=== PATIENT | female | born 1970 | race American Indian/Alaskan Native ===

== ENCOUNTER 2016-07-16 11:37 | Day surgery (SDC) | payer MEDICARE ==
[~2016-07-16 11:37] MED LIST: ANCEF/STERILE WATER 2 GM/20 ML 2 GM/20 ML SYRINGE IV NR; NACL 0.9% 1000 ML 1,000 ML IV SCH
[2016-07-16] MEDS ORDERED: HEPARIN/NS 5000 UNIT/500ML(CATH LAB) 1,000 ML IR ONE (13:41)
[2016-07-16] MEDS ORDERED: HEPARIN 10,000 UNITS/10 ML ONE (13:41)
[2016-07-16] MEDS ORDERED: NACL 0.9% 250ML 250 ML ONE (13:43)
[2016-07-16] MEDS ORDERED: ANCEF/STERILE WATER 2 GM/20 ML 2 GM/20 ML SYRINGE IV ONE (13:43)
[2016-07-16] MEDS: SUBLIMAZE ONE ×2 (14:15→14:21)
[2016-07-16] MEDS: XYLOCAINE 2% INFILTRATI ONE ×2 (14:15→14:24)
[2016-07-16] MEDS: VERSED ONE ×2 (14:15→14:21)
--- NOTE | 2016-07-16 14:56 | Short Stay Summary ---
Short Stay Documentation Date of service: 07/16/16 - History Principal diagnosis: Thrombosed AV graft Past Medical History: dialysis, ESRD Past Surgical History: Other (RUE Hero graft) Social history: no significant social history - Allergies and Medications Current Medications: Allergies fluconazole [From Diflucan] Allergy (Verified 11/28/15 16:57) Swelling Home Medications Medication Instructions Recorded Confirmed Last Taken Type Carvedilol [Coreg] 12.5 mg PO BID 05/26/15 07/16/16 07/15/16 History Cholecalciferol Vit D3 [Vitamin D3] 1,000 unit PO QDAY 05/26/15 07/16/16 History Insulin Detemir [Levemir VIAL] 30 unit SQ QHS 05/26/15 07/16/16 07/15/16 History Sevelamer Carbonate [Renvela] 1,600 mg PO TIDWM 05/26/15 07/16/16 07/16/16 07: 30 History amLODIPine [Norvasc] 10 mg PO DAILY 05/26/15 07/16/16 07/15/16 History Vit B Cplx #11/FA/C/Biot/Zn Ox 1 each PO DAILY 07/16/16 07/16/16 07/15/16 History [Dialyvite with Zinc Tablet] Active Medications Cefazolin Sodium (Ancef/Sterile Water 2 Gm/20 Ml) 2 gm in 20 mls @ 80 mls/hr IV PREOP NR PRN Reason: Protocol Stop: 07/16/16 23:59 Last Admin: 07/16/16 14:10 Dose: 20 mls Sodium Chloride (Nacl 0.9% 1000 Ml) 1,000 mls @ 42 mls/hr IV DIRECT SAMM Stop: 07/16/16 23:59 - Physical exam General appearance: no acute distress Integumentary: no rash HEENT: Atraumatic Lungs: Normal air movement Breasts: deferred Heart: Regular rate Gastrointestinal: normal Female Genitourinary: deferred Rectal Exam: deferred Extremities: no ischemia - Brief post op/procedure progress note Date of procedure: 07/16/16 Pre-op diagnosis: Thrombosed AV graft Post-op diagnosis: same Procedure: RUE FGA with declot Anesthesia: local Surgeon: MIK HECTRO Estimated blood loss: minimal Pathology: none Condition: stable - Disposition Condition at discharge: Good Disposition: DISCHARGED TO HOME OR SELFCARE Short Stay Discharge Plan Activity: advance as tolerated Weight Bearing Status: Weight Bear as Tolerated Diet: regular Wound: keep clean and dry, per your surgeon's advice Additional Instructions: F/U with outpatient dialysis as scheduled Follow up with: PRIMARY CARE, [Primary Care Provider] - 7 Days
--- NOTE | 2016-07-16 15:03 | Operative Report ---
Operative Report Operative Report: EXAM: LEFT UPPER EXTREMITY FISTULOGRAM CLINICAL INDICATION: THROMBOSED LEFT UPPER EXTREMITY FISTULA DATE: 07/16/2016 PROCEDURE: Following an expiration of the risks, benefits and alternatives; written informed consent was obtained. The patient was brought to the angiographic suite and placed in supine position on the exam table. Initial evaluation of her right arm hero graft demonstrated a thrombosed graft throughout its course. The patient's right upper arm was prepped and draped in the usual sterile fashion. 1% lidocaine was used for anesthesia. Of the fistula was accessed towards the venous outflow using a 7 cm 21-gauge needle. A 0.018 guidewire was advanced centrally. The needle was removed and a micro-sheath placed. The 0.018 guidewire was exchanged for a 0.035 guidewire and the micro-sheath exchanged for a 7 [place] vascular sheath. Accessed towards the arterial anastomosis was obtained in a similar fashion and a 6 [place] sheath directed towards the arterial anastomosis. A 4 [place] vertebral catheter was advanced through the venous sheath centrally. Gentle injection of contrast was performed from the right atrium to the sheath insertion site. The hero portion of the graft appears patent without intraluminal thrombus. There is thrombus within the graft within the upper arm however to the sheath insertion site. The vertebral catheter and a 0.035 guidewire were then advanced through the arterial sheath through the arterial anastomosis to the brachial artery. Digital subtraction angiography demonstrated thrombus extending from the arterial anastomosis to the sheath insertion site. Mechanical thrombectomy was then performed using a Trerotola mechanical thrombectomy device from the arterial anastomosis to the right atrium the arterial flow was then swept free using a 5 [place] Francis balloon. There was still stasis of flow within the contrast and stenosis of the graft secondary to extrinsic compression from infiltrated hematoma present on presentation. Venoplasty of the graft was then performed using an 7 mm x 40 mm balloon from just distal to the arterial anastomosis to the hero anastomosis. The vertebral catheter and guidewire were again advanced to through the arterial anastomosis and digital suppression angiography demonstrated widely patent graft from its origin to the right atrium. At this point, both sheaths were pulled and hemostasis achieved using 4-0 Vicryl suture and Dermabond. Sterile dressings were then applied. The patient tolerated the procedure well. There were no immediate post procedure competitions. Conscious sedation was performed under the guidance of radiologic nursing. Continuous cardiopulmonary monitoring was utilized. IMPRESSION: 1) Left upper extremity fistulogram demonstrating thrombosed graft from the arterial anastomosis to the right atrium. 2) Mechanical thrombectomy of the graft using Trerotola mechanical thrombectomy device. 3) Venoplasty of the graft as described.
[2016-07-16 15:52] VITALS: BP 135/74
== END 2016-07-16 16:10 | disposition home or self-care (01) ==
LOC: OPU 11:37
PROVIDERS: ATTEND Radiology Diagnostic Radiology
DX: T82.868A Thrombosis due to vascular prosthetic devices, implants and grafts, initial encounter (principal); I12.0 Hypertensive chronic kidney disease with stage 5 chronic kidney disease or end stage renal disease; E11.22 Type 2 diabetes mellitus with diabetic chronic kidney disease; Q90.9 Down syndrome, unspecified; N18.6 End stage renal disease; D64.9 Anemia, unspecified; K21.9 Gastro-esophageal reflux disease without esophagitis; Z99.2 Dependence on renal dialysis; Y83.2 Surgical operation with anastomosis, bypass or graft as the cause of abnormal reaction of the patient, or of later complication, without mention of misadventure at the time of the procedure
CPT/HCPCS: 36415; 36905; 82962; 84132; C1725; C1751; C1757; C1769; C1894; J0690; J1644; J2250; J3010; J7050; Q9967

== ENCOUNTER 2017-05-23 10:09 | Inpatient (IN) | payer MEDICARE ==
[2017-05-23 10:52] LABS: Basophils % (Auto) 0.9 % (0.0-1.8); Eosinophils % (Auto) 1.3 % (0.0-4.3); Hematocrit 33.6 % (30.3-42.9); Hemoglobin 10.9 gm/dl (10.1-14.3); Mean Corpuscular HGB Conc 33 % (30-34); Mean Corpuscular Hemoglobin 32 pg (28-32); Mean Corpuscular Volume 99 fl (79-97); Platelet Count 110 K/mm3 (140-440); Red Cell Distribution Width 14.8 % (13.2-15.2); White Blood Count 8.8 K/mm3 (4.5-11.0)
[2017-05-23 11:04] LABS: Anion Gap 22 mmol/L; BUN/Creatinine Ratio 8; Blood Urea Nitrogen 51 mg/dL (7-17); Calcium 8.5 mg/dL (8.4-10.2); Carbon Dioxide 23 mmol/L (22-30); Chloride 98.5 mmol/L (98-107); Glucose 151 mg/dL (65-100); Sodium 139 mmol/L (137-145)
[2017-05-23] MEDS ORDERED: ZOFRAN IV ONE (12:24)
[2017-05-23] MEDS ORDERED: ASPIRIN PO ONE (12:24)
[2017-05-23] MEDS ORDERED: NITRO-BID 2% TP ONE (12:24)
[2017-05-23] MEDS ORDERED: MORPHINE IV ONE (12:24)
--- NOTE | 2017-05-23 12:30 | Emergency Department Report ---
HPI - General Chief Complaint: Chest Pain Time Seen by Provider: 05/23/17 12:16 - HPI HPI: Room 3 The patient is a 47-year-old female presenting with a chief complaint of chest pain. The patient has a history of Down syndrome and end-stage renal disease. Today the patient was at dialysis for approximately 1.5 hours when she developed substernal chest pain. Patient denies shortness of breath, nausea/ vomiting or diaphoresis. Patient knowledge to law enforcement instructor that the chest pain hurts "a lot." The patient has never had a stress test or cardiac catheterization Location: Chest Duration: One day Quality: "Hurt" Severity: "A lot" Modifying factors: [see above] Context: [see above] Mode of transportation: [not driving] ED Past Medical Hx - Past Medical History Hx Hypertension: Yes Hx Diabetes: Yes Hx GERD: Yes Hx Renal Disease: Yes (Vikash Jacobs Sat) Additional medical history: Down syndrome - Surgical History Additional Surgical History: Fistula right upper arm, Cataracts surgery - Family History Family history: no significant - Social History Smoking Status: Never Smoker Substance Use Type: None - Medications Home Medications: Home Medications Medication Instructions Recorded Confirmed Last Taken Type Carvedilol [Coreg] 12.5 mg PO BID 05/26/15 07/16/16 07/15/16 History Cholecalciferol Vit D3 [Vitamin D3] 1,000 unit PO QDAY 05/26/15 07/16/16 History Insulin Detemir [Levemir VIAL] 30 unit SQ QHS 05/26/15 07/16/16 07/15/16 History Sevelamer Carbonate [Renvela] 1,600 mg PO TIDWM 05/26/15 07/16/16 07/16/16 07: 30 History amLODIPine [Norvasc] 10 mg PO DAILY 05/26/15 07/16/16 07/15/16 History B Complex 11/Folic/C/Biot/Zinc 1 each PO DAILY 07/16/16 07/16/16 07/15/16 History [Dialyvite with Zinc Tablet] ED Review of Systems ROS: Stated complaint: CP Other details as noted in HPI Constitutional: denies: diaphoresis Respiratory: denies: shortness of breath Cardiovascular: chest pain Gastrointestinal: denies: nausea, vomiting Physical Exam - Physical Exam Vital Signs: Vital Signs 05/23/17 10:27 Temperature 98.5 F Pulse Rate 77 Respiratory 20 Rate Blood Pressure 143/80 O2 Sat by Pulse 96 Oximetry Physical Exam: GENERAL: The patient is a well-nourished female with Down's facies lying on stretcher not appearing to be in acute distress HEENT: Down's facies. Atraumatic. Extraocular motions are intact. Patient has moist mucous membranes. NECK: Supple. No meningitic signs are noted. There is no adenopathy noted. CHEST/LUNGS: Clear to auscultation. There is no respiratory distress noted. HEART/CARDIOVASCULAR: Regular. There is no tachycardia. There is no gallop rub or murmur. ABDOMEN: Abdomen is soft, nontender. Patient has normal bowel sounds. There is no abdominal distention. SKIN: There is no rash. There is no edema. There is no diaphoresis. NEURO: The patient is awake and alert. The patient is cooperative. The patient has normal speech MUSCULOSKELETAL:There is no evidence of acute injury. ED Course Vital Signs 05/23/17 10:27 Temperature 98.5 F Pulse Rate 77 Respiratory 20 Rate Blood Pressure 143/80 O2 Sat by Pulse 96 Oximetry ED Medical Decision Making - Lab Data Result diagrams: 05/23/17 10:33 05/23/17 10:33 Laboratory Tests 05/23/17 05/23/17 10:33 10:33 WBC 8.8 RBC 3.40 L Hgb 10.9 Hct 33.6 MCV 99 H MCH 32 MCHC 33 RDW 14.8 Plt Count 110 L Lymph % (Auto) 7.3 L Oliver % (Auto) 6.5 Eos % (Auto) 1.3 Baso % (Auto) 0.9 Lymph # 0.6 L Oliver # 0.6 Eos # 0.1 Baso # 0.1 Seg Neutrophils % 84.0 H Seg Neutrophils # 7.4 Sodium 139 Potassium 4.0 Chloride 98.5 Carbon Dioxide 23 Anion Gap 22 BUN 51 H Creatinine 6.4 H Estimated GFR 8 BUN/Creatinine Ratio 8 Glucose 151 H Calcium 8.5 Troponin T < 0.010 - EKG Data -: EKG Interpreted by Mo EKG shows normal: sinus rhythm Rate: normal - EKG Data When compared to previous EKG there are: no significant change Interpretation: unchanged when compared t (02/07/2011) - Radiology Data Radiology results: image reviewed (chest x-ray) interpreted by me: Chest x-ray-no focal infiltrates, no pneumothorax - Differential Diagnosis ACS, pericarditis, GERD Critical care attestation.: If time is entered above; I have spent that time in minutes in the direct care of this critically ill patient, excluding procedure time. ED Disposition Clinical Impression: Chest pain Disposition: OP ADMIT IP TO THIS HOSP Is pt being admited?: Yes Does the pt Need Aspirin: Yes Condition: Fair Instructions: Chest Pain (ED) Referrals: PRIMARY CARE,MD [Primary Care Provider] - 3-5 Days Time of Disposition: 12:55 (hospitalist paged (Dr. Fisher))
--- NOTE | 2017-05-23 13:46 | History and Physical Report ---
History of Present Illness Chief complaint: My chest hurts right here History of present illness: 47 YO female with HTN, DM, GERD, ESRD on HD(T,R,Sa), Down Syndrome presents to ED for evaluation. Pt unable to provide detailed history, but history provided by mother who is at bedside during exam and interview. As per mom, pt was receiving her regularly scheduled dialysis when she developed pain in her chest. Pain was 10/10, substernal, not worsened with exertion or relieved with rest. Patient denies fever, chills, palpitations, shortness of breath, nausea/ vomiting or diaphoresis. Pt seen and evaluated in ED and found to have respiratory distress secondary to fluid overload. Pt admitted to telemetry. Past History Past Medical History: diabetes, ESRD, GERD, hyperthyroidism, other (Down Syndrome,) Past Surgical History: Other (RUE AVF) Social history: single, lives with family. denies: smoking, alcohol abuse, prescription drug abuse Family history: diabetes, hypertension Medications and Allergies Allergies Allergy/AdvReac Type Severity Reaction Status Date / Time fluconazole [From Diflucan] Allergy Swelling Verified 05/23/17 10:25 Home Medications Medication Instructions Recorded Confirmed Last Taken Type Carvedilol [Coreg] 12.5 mg PO BID 05/26/15 05/23/17 07/15/16 History Insulin Detemir [Levemir VIAL] 35 units SUB-Q DAILY 05/26/15 05/23/17 07/15/16 History Sevelamer Carbonate [Renvela] 2 tab PO TIDWM 05/26/15 05/23/17 07/16/16 07:30 History amLODIPine [Norvasc] 10 mg PO DAILY 05/26/15 05/23/17 07/15/16 History B Complex 11/Folic/C/Biot/Zinc 1 each PO DAILY 07/16/16 05/23/17 07/15/16 History [Dialyvite with Zinc Tablet] Ergocalciferol (Vitamin D2) 2,000 unit PO DAILY 05/23/17 05/23/17 Unknown History [Vitamin D2] Review of Systems Constitutional: no weight loss, no weight gain, no fever, no chills Ears, nose, mouth and throat: no ear pain, no ear discharge, no tinnitis, no decreased hearing, no nose pain, no nasal congestion Breasts: no change in shape, no swelling, no mass Cardiovascular: chest pain, no orthopnea, no palpitations, no rapid/irregular heart beat, no syncope, no shortness of breath, no claudication, no high blood pressure Respiratory: no cough, no cough with sputum, no excessive sputum, no hemoptysis Gastrointestinal: no abdominal pain, no nausea, no vomiting, no diarrhea, no constipation Genitourinary Female: no pelvic pain, no flank pain, no dysuria Rectal: no pain, no incontinence, no bleeding Musculoskeletal: no neck stiffness, no neck pain, no shooting arm pain, no arm numbness/tingling Integumentary: no rash, no pruritis, no redness, no sores, no wounds Neurological: no head injury, no transient paralysis, no paralysis, no weakness Psychiatric: no anxiety, no memory loss, no change in sleep habits, no sleep disturbances, no insomnia Endocrine: no cold intolerance, no heat intolerance, no polyphagia, no excessive thirst, no polydipsia Hematologic/Lymphatic: no easy bruising, no easy bleeding Allergic/Immunologic: no urticaria, no allergic rhinitis, no wheezing Exam - Constitutional Vitals: Temp Pulse Resp BP Pulse Ox 98.5 F 80 18 145/81 94 05/23/17 10:27 05/23/17 12:30 05/23/17 12:31 05/23/17 12:30 05/23/17 12:30 General appearance: Present: mild distress, obese - EENT Eyes: Present: PERRL ENT: hearing intact, clear oral mucosa - Neck Neck: Present: supple, normal ROM - Respiratory Respiratory effort: normal Respiratory: bilateral: CTA - Cardiovascular Heart Sounds: Present: S1 & S2. Absent: rub, click - Extremities Extremities: pulses symmetrical, No edema Extremity abnormal: edema Peripheral Pulses: within normal limits - Abdominal General gastrointestinal: Present: soft, non-tender, non-distended, normal bowel sounds Female genitourinary: Present: normal - Integumentary Integumentary: Present: clear, warm, dry - Musculoskeletal Musculoskeletal: gait normal, strength equal bilaterally - Psychiatric Psychiatric: no intact judgment & insight, no memory intact - Neurologic Neurologic: CNII-XII intact, moves all extremities Results - Labs CBC & Chem 7: 05/23/17 10:33 05/23/17 10:33 Labs: Abnormal lab results 05/23/17 05/23/17 Range/Units 10:33 10:33 RBC 3.40 L (3.65-5.03) M/mm3 MCV 99 H (79-97) fl Plt Count 110 L (140-440) K/mm3 Lymph % (Auto) 7.3 L (13.4-35.0) % Lymph # 0.6 L (1.2-5.4) K/mm3 Seg Neutrophils % 84.0 H (40.0-70.0) % BUN 51 H (7-17) mg/dL Creatinine 6.4 H (0.7-1.2) mg/dL Glucose 151 H (65-100) mg/dL Assessment and Plan - Patient Problems (1) ACS (acute coronary syndrome) Current Visit: Yes Status: Acute Plan to address problem: Serial cardiac enzymes, ekg, admit to telemetry, cta chest, morphine, nitro tabs, supplemental oxygen, aspirin, (2) ESRD (end stage renal disease) Current Visit: Yes Status: Acute Plan to address problem: Nephrology consulted for incomplete dialysis. dialysis as per renal team. (3) Anemia in ESRD (end-stage renal disease) Current Visit: Yes Status: Acute Plan to address problem: No transfusion at this time. epogen as per renal team. (4) Diabetes Current Visit: Yes Status: Acute Plan to address problem: ADA diet, insulin, accu check (5) Fluid overload Current Visit: Yes Status: Acute Plan to address problem: fluid restriction, monitor uop q shift, (6) DVT prophylaxis Current Visit: Yes Status: Acute
[2017-05-23] MEDS ORDERED: ZOFRAN IV PRN (13:48)
[2017-05-23] MEDS ORDERED: NITROSTAT SL PRN (13:48)
[2017-05-23] MEDS ORDERED: PROVENTIL IH PRN (13:48)
[2017-05-23] MEDS ORDERED: MORPHINE IV PRN (13:48)
[2017-05-23] MEDS ORDERED: TYLENOL PO PRN (13:48)
[2017-05-23] MEDS ORDERED: SODIUM CHLORIDE FLUSH SYRINGE 10 ML IV PRN (13:48)
--- NOTE | 2017-05-23 13:54 | XRay Report ---
AP CHEST: HISTORY: chest pain AP view of the chest demonstrates a normal mediastinal and cardiac contour with clear lungs and normal bony and soft tissue structures. Right IJ venous catheter terminates in the superior right atrium. IMPRESSION: No acute cardiopulmonary process.
[2017-05-23] MEDS ORDERED: BABY ASPIRIN PO STA (14:04)
[2017-05-23] MEDS ORDERED: NACL ONE ×2 (14:18→22:28)
--- NOTE | 2017-05-23 23:29 | Cat Scan Report ---
FINAL REPORT PROCEDURE: CT ANGIO CHEST TECHNIQUE: Computerized tomographic angiography of the chest was performed after the IV injection of iodinated nonionic contrast including image processing. The image data was postprocessed using 2-dimensional multiplanar reformatted (MPR) and 3-dimensional (MIP and/or volume rendered) techniques. HISTORY: chest pain COMPARISON: No prior studies are available for comparison. FINDINGS: Heart and pericardium: Normal. Thoracic aorta: No aneurysm. 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 Pulmonary vasculature: Normal. No embolism seen Lymph nodes: No enlarged thoracic lymph nodes. Lungs: Right upper lobe and perihilar airspace consolidation, series 3, images 27 through 46. Pleural space: No effusion, thickening, or pneumothorax. Musculoskeletal structures: No significant abnormality. Upper abdominal structures: No significant abnormality. Other: There is central catheter on the right extending to the right atrium. There is no flow seen in the superior vena cava. There are prominent collateral vessels in the chest wall. IMPRESSION: No embolism seen. Right upper lung infiltrates.
[2017-05-24] MEDS ORDERED: LEXISCAN IV ONE ×2 (10:16→10:17)
[2017-05-24] MEDS ORDERED: NACL 0.9% 100 ML IV PRN (12:33)
[2017-05-24] MEDS ORDERED: PROCRIT IV PRN (12:33)
--- NOTE | 2017-05-24 12:33 | Consultation ---
History of Present Illness - Reason for Consult Consult date: 05/24/17 end stage renal disease Requesting physician: TAMEKA MARCELINO - History of Present Illness 47 YO female with HTN, DM, GERD, ESRD on HD(T,Michelle,Sa), Down Syndrome presents to ED yesterday for evaluation. Pt unable to provide detailed history. Information obtained from patient's current chart. She was receiving her regularly scheduled dialysis yesterday , when she developed pain in her chest. Pain was 10/10, substernal, not worsened with exertion or relieved with rest. Patient denies fever, chills, palpitations, shortness of breath, nausea/ vomiting or diaphoresis. Pt seen and evaluated in ED and found to have respiratory distress secondary to fluid overload. Pt admitted to telemetry. She is currently undergoing a stress test this morning. Records from dialysis clinic reviewed. She had a little over 1-1/2 on a dialysis treatment yesterday and she left about 1 kg over her estimated dry weight Past History Past Medical History: diabetes, ESRD, GERD, hyperthyroidism, other (Down Syndrome,) Past Surgical History: Other (RUE AVF) Social history: single, lives with family. denies: smoking, alcohol abuse, prescription drug abuse Family history: diabetes, hypertension Medications and Allergies Allergies Allergy/AdvReac Type Severity Reaction Status Date / Time fluconazole [From Diflucan] Allergy Swelling Verified 05/23/17 10:25 Home Medications Medication Instructions Recorded Confirmed Last Taken Type Carvedilol [Coreg] 12.5 mg PO BID 05/26/15 05/23/17 07/15/16 History Insulin Detemir [Levemir VIAL] 35 units SUB-Q DAILY 05/26/15 05/23/17 07/15/16 History Sevelamer Carbonate [Renvela] 2 tab PO TIDWM 05/26/15 05/23/17 07/16/16 07:30 History amLODIPine [Norvasc] 10 mg PO DAILY 05/26/15 05/23/17 07/15/16 History B Complex 11/Folic/C/Biot/Zinc 1 each PO DAILY 07/16/16 05/23/17 07/15/16 History [Dialyvite with Zinc Tablet] Ergocalciferol (Vitamin D2) 2,000 unit PO DAILY 05/23/17 05/23/17 Unknown History [Vitamin D2] Active Meds: Active Medications Acetaminophen (Tylenol) 650 mg PO Q4H PRN PRN Reason: Pain MILD(1-3)/Fever >100.5/RUBIO Albuterol (Proventil) 2.5 mg IH Q4HRT PRN PRN Reason: Shortness Of Breath Morphine Sulfate (Morphine) 2 mg IV Q4H PRN PRN Reason: Pain, Moderate (4-6) Last Admin: 05/24/17 08:29 Dose: 2 mg Nitroglycerin (Nitrostat) 0.4 mg SL Q5M PRN PRN Reason: Chest Pain Ondansetron HCl (Zofran) 4 mg IV Q8H PRN PRN Reason: N/V unrelieved by Reglan Sodium Chloride (Sodium Chloride Flush Syringe 10 Ml) 10 ml IV PRN PRN PRN Reason: LINE FLUSH Review of Systems ROS unobtainable: due to mental status Exam - Vital Signs Vital signs: Vital Signs Temp Pulse Resp BP Pulse Ox 98.5 F 77 20 143/80 96 05/23/17 10:27 05/23/17 10:27 05/23/17 10:27 05/23/17 10:27 05/23/17 10:27 - General Appearance General appearance: well-developed, well-nourished, appears stated age EENT: PERRL, mucous membranes moist Neck: Present: neck supple, trachea midline. Absent: JVD/HJR, Masses Respiratory: Clear to Ascultation Heart: regular, normal heart rate, S1S2, no murmurs Gastrointestinal: Present: normal, normoactive bowel sounds Integumentary: no rash, other (AV fistula in her upper extremity. Good bruit and thrill) Results - Lab Results 05/23/17 10:33 05/23/17 10:33 Most recent lab results Calcium 8.5 mg/dL (8.4-10.2) 05/23/17 10:33 Assessment and Plan Impression * End-stage renal disease on maintenance hemodialysis * Chest pain * Hypertension * Down syndrome * Anemia Recommendations * Patient's electrolytes and volume status are acceptable today. No urgent indication for additional dialysis treatment today * Shall keep her on Tuesdays, and Saturdays schedule as outpatient * Procrit with dialysis * Binders with diet * No IV, BP of venipuncture access arm * Adjust diet and meds for ESRD state * Thank you very much for the consultation. Shall follow along with you
--- NOTE | 2017-05-24 13:22 | Discharge Summary ---
Providers - Providers Date of Admission: 05/23/17 13:48 Date of discharge: 05/24/17 Attending physician: TAMEKA MARCELINO 05/23/17 Consult to Cardiac Rehabilitation [CONS] Routine Reason For Exam: Phase I 05/23/17 23:13 Consult to Physician [CONS] Routine Consulting Provider: ALANNA PAYNE Reason For Exam: hd Notified:: medical unit secretary pl call Primary care physician: [employer] Hospitalization Reason for admission: Chest pain Condition: Fair Hospital course: who presented to the Emergency Department complaining of Midsternal chest pain. Patient was diagnosed with chest pain, End stage renal disease, Anemia in ESRD end-stage renal disease,Diabetes mellitus and Fluid overload. Patient presented with atypical chest pain, ACS was ruled out, stress test normal MPI, negative cardiac enzymes, ECGs shows normal sinus rythm, CXR WNL. Patient chest pain probably from ESRD. She received emergent dialysis, during which excess fluid was removed, and her hyperkalemia corrected with HD, she was restarted on the rest of her meds.Patient is clinically improved and stable for discharge. Patient advised to follow-up with her primary care provider. Discharge Diagnosed Chest pain due to ESRD End stage renal disease Anemia in ESRD end-stage renal disease Diabetes mellitus Fluid overload Disposition: DC-01 TO HOME OR SELFCARE Time spent for discharge: 33 minutes Core Measure Documentation - Palliative Care Palliative Care/ Comfort Measures: Not Applicable - Core Measures Any of the following diagnoses?: none Exam - Constitutional Vitals: Temp Pulse Resp BP Pulse Ox 98.2 F 78 18 147/67 100 05/24/17 04:24 05/24/17 04:24 05/24/17 04:24 05/24/17 04:24 05/24/17 04:24 General appearance: Present: no acute distress, other (alert oriented 2) - EENT Eyes: Present: PERRL ENT: hearing intact - Neck Neck: Present: supple - Respiratory Respiratory effort: normal Respiratory: bilateral: CTA - Cardiovascular Rhythm: regular Heart Sounds: Present: S1 & S2 - Abdominal General gastrointestinal: Present: soft, non-tender Female genitourinary: Present: deferred - Rectal Rectal Exam: deferred - Integumentary Integumentary: Present: clear, warm, dry - Musculoskeletal Musculoskeletal: strength equal bilaterally - Psychiatric Psychiatric: appropriate mood/affect - Neurologic Neurologic: moves all extremities - Allied Health Allied health notes reviewed: nursing Plan Diet: low fat, low cholesterol, low salt Follow up with: PRIMARY CARE, [Primary Care Provider] - 3-5 Days
[2017-05-24 14:35] VITALS: BP 146/67
--- NOTE | 2017-05-25 00:36 | Treadmill Report ---
INDICATION: Chest pain. ORDERING PHYSICIAN: Dr. Karla López. FINDINGS: There is no scintigraphic evidence of myocardial ischemia. The left ventricle is normal in size and systolic function. The left ventricular ejection fraction is measured at 76% with normal wall motion and wall thickening. CONCLUSION: Normal perfusion scan. JOB# [id number] AKD/NTS
== END 2017-05-24 17:29 | disposition home or self-care (01) | DRG 313 ==
LOC: ED 10:09 → 4A 13:48
PROVIDERS: ADMIT Internal Medicine; ATTEND Internal Medicine
DX: R07.89 Other chest pain (principal); N18.6 End stage renal disease; I12.0 Hypertensive chronic kidney disease with stage 5 chronic kidney disease or end stage renal disease; E87.70 Fluid overload, unspecified; E11.22 Type 2 diabetes mellitus with diabetic chronic kidney disease; E87.5 Hyperkalemia; D63.1 Anemia in chronic kidney disease; R06.03 Acute respiratory distress; K21.9 Gastro-esophageal reflux disease without esophagitis; Q90.9 Down syndrome, unspecified; Z83.3 Family history of diabetes mellitus; Z82.49 Family history of ischemic heart disease and other diseases of the circulatory system; Z88.8 Allergy status to other drugs, medicaments and biological substances
CPT/HCPCS: 36415; 71010; 71275; 78452; 80048; 84484; 85025; 93005; 93010; 93017; 94760; 96374; 96375; A9502; J2270; J2405; J2785; Q9967

== ENCOUNTER 2017-06-12 06:57 | Day surgery (SDC) | payer MEDICARE ==
[~2017-06-12 06:57] MED LIST changes: -NACL 0.9% 1000 ML 1,000 ML IV SCH
[2017-06-12] MEDS ORDERED: HEPARIN/NS 5000 UNIT/500ML(CATH LAB) 500 ML IR ONE (10:09)
[2017-06-12] MEDS ORDERED: SUBLIMAZE ONE (10:10)
[2017-06-12] MEDS ORDERED: VERSED ONE (10:10)
[2017-06-12] MEDS ORDERED: XYLOCAINE 2% INFILTRATI ONE ×2 (10:10→10:17)
[2017-06-12] MEDS ORDERED: SUBLIMAZE IV ONE ×2 (10:14→10:52)
[2017-06-12] MEDS ORDERED: VERSED IV ONE (10:14)
[2017-06-12] MEDS ORDERED: NACL 0.9% 500 ML 500 ML ONE (10:19)
[2017-06-12] MEDS ORDERED: CATHFLO ONE (10:34)
[2017-06-12] MEDS ORDERED: WATER FOR INJ (PF) 10 ML ONE (10:34)
[2017-06-12] MEDS ORDERED: CATHFLO IV ONE (10:37)
[2017-06-12] MEDS ORDERED: HEPARIN 10,000 UNITS/10 ML ONE (10:57)
--- NOTE | 2017-06-12 11:15 | Short Stay Summary ---
Short Stay Documentation Date of service: 06/12/17 - History Principal diagnosis: AVG clotted H&P: obtained from office - Allergies and Medications Current Medications: Allergies fluconazole [From Diflucan] Allergy (Verified 05/23/17 10:25) Swelling Home Medications Medication Instructions Recorded Confirmed Last Taken Type Carvedilol [Coreg] 12.5 mg PO BID 05/26/15 06/12/17 06/11/17 History Insulin Detemir [Levemir VIAL] 30 units SUB-Q QHS 05/26/15 06/12/17 06/11/17 History Sevelamer Carbonate [Renvela] 4 tab PO TIDWM 05/26/15 06/12/17 06/11/17 History amLODIPine [Norvasc] 10 mg PO DAILY 05/26/15 06/12/17 06/11/17 History B Complex 11/Folic/C/Biot/Zinc 1 each PO DAILY 07/16/16 05/23/17 06/11/17 History [Dialyvite with Zinc Tablet] Ergocalciferol (Vitamin D2) 2,000 unit PO DAILY 05/23/17 06/12/17 06/11/17 History [Vitamin D2] Active Medications Cefazolin Sodium (Ancef/Sterile Water 2 Gm/20 Ml) 2 gm in 20 mls @ 80 mls/hr IV PREOP NR PRN Reason: Protocol Stop: 06/12/17 23:59 - Brief post op/procedure progress note Date of procedure: 06/12/17 Pre-op diagnosis: AVG clotted Post-op diagnosis: same Procedure: Declot, venoplasty Anesthesia: local Surgeon: MIK HECTOR Estimated blood loss: minimal Pathology: none Condition: stable - Disposition Condition at discharge: Good Disposition: DC-01 TO HOME OR SELFCARE Short Stay Discharge Plan Activity: advance as tolerated Weight Bearing Status: Weight Bear as Tolerated Diet: renal Wound: keep clean and dry, per your surgeon's advice Follow up with: TAMEKA ORDOÑEZ MD [Primary Care Provider] - 7 Days
--- NOTE | 2017-06-12 11:20 | Operative Report ---
Operative Report Operative Report: EXAM: RIGHT UPPER EXTREMITY FISTULOGRAM, THROMBECTOMY AND A VENOPLASTY CLINICAL INDICATION: PATIENT WITH A HISTORY OF A RIGHT UPPER ARM AV GRAFT THAT IS NOW THROMBOSED DATE: 06/12/2017 PROCEDURE: Following an explanation of the risks, benefits and alternatives; written informed consent was obtained. The patient was brought to the angiographic suite and placed in supine position on the examination table. Initial evaluation arm demonstrated a thrombosed graft. The patient's right upper arm was prepped and draped in the usual sterile fashion. 1% lidocaine was used for anesthesia. Under ultrasound guidance, the graft was accessed towards the venous outflow using a 7 cm 21-gauge needle. A 0.018 guidewire was advanced centrally. The needle was removed and a micro-sheath placed. The 0.018 guidewire was exchanged for a 0.035 guidewire and the micro-sheath exchanged for a 7 Tajik vascular sheath. Accessed towards the arterial anastomosis was obtained in a similar fashion and a 6 Tajik sheath directed towards the arterial anastomosis over a 0.035 guidewire. A 4 Tajik vertebral catheter was advanced over the guidewire through the AV graft into the hero graft. Together the guidewire and catheter were advanced to the distal end of the hero graft. There is thrombus extending from the sheath insertion site to the tip of the hero graft. 4 mg of TPA was then infused throughout the thrombosed hero graft and A/V graft. Maceration of the thrombus in the hero graft was performed using a 5 mm balloon. A Trerotola mechanical thrombectomy device was used in the AV graft. Over a 0.035 guidewire , the arterial blood was swept free using a 5 Tajik Francis balloon. Post thymectomy angiogram demonstrated stenosis at the cannulation site as well as the anastomosis between graft and hero graft. Angioplasty was performed using a 7 mm balloon throughout the graft. The arterial blood was again swept free and a palpable thrill was present. The 4 Tajik vertebral catheter was advanced over the 0.035 guidewire into the heel artery and it angiography performed. Additional angiography was performed to the venous sheath. This demonstrates brisk flow throughout the AV graft through the hero graft. At this point, the catheters, guidewires and she's were removed and hemostasis achieved using 3-0 Vicryl suture and manual compression. Sterile dressings were then applied. The patient tolerated the procedure well. There were no immediate post procedure palpitations. Conscious sedation was was performed under the guidance of radiologic nursing. Continuous cardiopulmonary monitoring was utilized. IMPRESSION: 1) Right upper extremity fistula gram demonstrating thrombus from the arterial anastomosis to the tip of the hero graft. 2) Mechanical thrombectomy as described. 3) Venoplasty of stenosis at the site of cannulation within the graft as well as the anastomosis between graft and hero graft with residual less than 10% stenosis and brisk flow.
[2017-06-12 12:36] VITALS: BP 118/49
== END 2017-06-12 12:55 | disposition home or self-care (01) ==
LOC: CATHLABREC 06:57
PROVIDERS: ATTEND Radiology Diagnostic Radiology
DX: T82.868A Thrombosis due to vascular prosthetic devices, implants and grafts, initial encounter (principal); T82.858A Stenosis of other vascular prosthetic devices, implants and grafts, initial encounter; E11.22 Type 2 diabetes mellitus with diabetic chronic kidney disease; I13.2 Hypertensive heart and chronic kidney disease with heart failure and with stage 5 chronic kidney disease, or end stage renal disease; I50.9 Heart failure, unspecified; N18.6 End stage renal disease; Q90.9 Down syndrome, unspecified; Z79.4 Long term (current) use of insulin; Z79.899 Other long term (current) drug therapy; Z98.890 Other specified postprocedural states; Y83.2 Surgical operation with anastomosis, bypass or graft as the cause of abnormal reaction of the patient, or of later complication, without mention of misadventure at the time of the procedure
CPT/HCPCS: 36415; 36905; 82962; 84132; 99156; 99157; C1725; C1751; C1757; C1769; C1894; J1644; J2250; J2997; J3010; J7040; Q9967

== ENCOUNTER 2017-06-25 17:06 | Emergency (ER) | payer MEDICARE ==
[2017-06-26 02:11] LABS: Hematocrit 30.6 % (30.3-42.9); Hemoglobin 10.3 gm/dl (10.1-14.3); Mean Corpuscular HGB Conc 34 % (30-34); Mean Corpuscular Hemoglobin 34 pg (28-32); Mean Corpuscular Volume 100 fl (79-97); Platelet Count 135 K/mm3 (140-440); Red Blood Count 3.07 M/mm3 (3.65-5.03); Red Cell Distribution Width 16.8 % (13.2-15.2)
[2017-06-26 02:13] LABS: Calcium 7.9 mg/dL (8.4-10.2)
--- NOTE | 2017-06-26 10:27 | Emergency Department Report ---
ED General Adult HPI - General Chief complaint: Medical Clearance Stated complaint: ABNORMAL LABS Time Seen by Provider: 06/26/17 10:23 Source: family Mode of arrival: Ambulatory Limitations: Other - History of Present Illness Initial comments: The patient has a problem with chronic hyperkalemia despite dialysis. According to the mother that she takes a bottle of Kayexalate every day. According to her weapons mechanic nurse practitioner they listed as once a week. Apparently the patient was found to have a potassium of 6.8 in the office 2 days ago. She was dialyzed yesterday and completed a run. She is asymptomatic today. The patient has a history of Down syndrome. She is able to communicate. Obviously she is limited in her understanding and ability to provide her medical history. However, she is here with her mother or guardian. Mother states that she has had no recent fever or chills. She does not have a dialysis catheter. She has been going to regular dialysis. She wouldn't be in the emergency department today except the direction of weapons mechanic. She is an insulin-dependent diabetic. -: unknown - Related Data Home Medications Medication Instructions Recorded Confirmed Last Taken Carvedilol [Coreg] 12.5 mg PO BID 05/26/15 06/12/17 06/11/17 Insulin Detemir [Levemir VIAL] 30 units SUB-Q QHS 05/26/15 06/12/17 06/11/17 Sevelamer Carbonate [Renvela] 4 tab PO TIDWM 05/26/15 06/12/17 06/11/17 amLODIPine [Norvasc] 10 mg PO DAILY 05/26/15 06/12/17 06/11/17 B Complex 11/Folic/C/Biot/Zinc 1 each PO DAILY 07/16/16 05/23/17 06/11/17 [Dialyvite with Zinc Tablet] Ergocalciferol (Vitamin D2) 2,000 unit PO DAILY 05/23/17 06/12/17 06/11/17 [Vitamin D2] Allergies Allergy/AdvReac Type Severity Reaction Status Date / Time fluconazole [From Diflucan] Allergy Swelling Verified 05/23/17 10:25 ED Review of Systems ROS: Stated complaint: ABNORMAL LABS Other details as noted in HPI Constitutional: denies: chills, fever Eyes: denies: eye pain, vision change ENT: denies: ear pain, throat pain Respiratory: denies: cough, shortness of breath Cardiovascular: denies: chest pain, palpitations Endocrine: no symptoms reported Gastrointestinal: denies: abdominal pain, nausea, diarrhea Genitourinary: denies: urgency, dysuria, discharge Musculoskeletal: denies: back pain, joint swelling, arthralgia Skin: denies: rash, lesions Neurological: denies: headache, weakness, paresthesias Psychiatric: denies: anxiety, depression Hematological/Lymphatic: denies: easy bleeding, easy bruising ED Past Medical Hx - Past Medical History Previous Medical History?: Yes Hx Hypertension: Yes Hx Heart Attack/AMI: No Hx Congestive Heart Failure: No Hx Diabetes: Yes Hx GERD: Yes Hx Liver Disease: No Hx Renal Disease: Yes (Sat) Hx Sickle Cell Disease: No Hx Seizures: No Hx Asthma: No Hx COPD: No Additional medical history: Down syndrome - Surgical History Past Surgical History?: Yes Hx Pacemaker: No Hx Internal Defibrillator: No Additional Surgical History: Fistula right upper arm, Cataracts surgery - Social History Smoking Status: Never Smoker Substance Use Type: None - Medications Home Medications: Home Medications Medication Instructions Recorded Confirmed Last Taken Type Carvedilol [Coreg] 12.5 mg PO BID 05/26/15 06/12/17 06/11/17 History Insulin Detemir [Levemir VIAL] 30 units SUB-Q QHS 05/26/15 06/12/17 06/11/17 History Sevelamer Carbonate [Renvela] 4 tab PO TIDWM 05/26/15 06/12/17 06/11/17 History amLODIPine [Norvasc] 10 mg PO DAILY 05/26/15 06/12/17 06/11/17 History B Complex 11/Folic/C/Biot/Zinc 1 each PO DAILY 07/16/16 05/23/17 06/11/17 History [Dialyvite with Zinc Tablet] Ergocalciferol (Vitamin D2) 2,000 unit PO DAILY 05/23/17 06/12/17 06/11/17 History [Vitamin D2] ED Physical Exam - General Limitations: Other (Down syndrome) General appearance: alert, in no apparent distress - Head Head exam: Present: atraumatic, other (Downs typical ) - Eye Eye exam: Present: normal appearance, PERRL, EOMI. Absent: scleral icterus - ENT ENT exam: Present: mucous membranes moist - Neck Neck exam: Present: normal inspection. Absent: tenderness, meningismus - Respiratory Respiratory exam: Present: normal lung sounds bilaterally. Absent: respiratory distress - Cardiovascular Cardiovascular Exam: Present: regular rate, normal rhythm. Absent: systolic murmur, diastolic murmur, rubs, gallop - GI/Abdominal GI/Abdominal exam: Present: soft, normal bowel sounds. Absent: distended, tenderness, guarding, rebound, rigid - Extremities Exam Extremities exam: Present: normal inspection - Back Exam Back exam: Present: normal inspection - Neurological Exam Neurological exam: Present: alert, oriented X3, CN II-XII intact. Absent: motor sensory deficit - Psychiatric Psychiatric exam: Present: normal affect, normal mood - Skin Skin exam: Present: warm, dry, intact, normal color. Absent: rash ED Course Vital Signs 06/25/17 06/26/17 06/26/17 17:14 03:32 09:00 Temperature 98.1 F 98.2 F 97.9 F Pulse Rate 87 68 74 Respiratory 16 18 20 Rate Blood Pressure 120/72 110/65 128/81 Blood Pressure [Left] O2 Sat by Pulse 99 97 96 Oximetry 06/26/17 06/26/17 09:58 10:11 Temperature 97.9 F Pulse Rate 77 Respiratory 11 L 12 Rate Blood Pressure Blood Pressure 113/54 [Left] O2 Sat by Pulse Oximetry - Reevaluation(s) Reevaluation #1: The patient's potassium was found to be 5.1 today. Her glucose was elevated but on repeat it was 250. She was noted to have an increased anion gap. I spoke with Cristy who reviewed all of the patient's labs with Dr. Diaz, the weapons mechanic. They informed me that they are not significantly concerned about the patient's anion gap. I think it is attributable to her chronic kidney disease. She appears well. Her sugar is lower. They did not recommend any further workup for this. They stated the patient should be discharged to office follow-up. I agree think this is reasonable. Patient will be dialyzed tomorrow and follow-up in the office. 06/26/17 12:46 06/26/17 12:48 ED Medical Decision Making - Lab Data Result diagrams: 06/26/17 01:28 06/26/17 01:28 Laboratory Results - last 24 hr 06/26/17 06/26/17 06/26/17 01:28 01:28 09:02 WBC 5.8 RBC 3.07 L Hgb 10.3 Hct 30.6 MCV 100 H MCH 34 H MCHC 34 RDW 16.8 H Plt Count 135 L Sodium 137 Potassium 5.1 H Chloride 93.5 L Carbon Dioxide 26 Anion Gap 23 BUN 56 H Creatinine 7.2 H Estimated GFR 7 BUN/Creatinine Ratio 8 Glucose 407 H POC Glucose 254 H Calcium 7.9 L Critical care attestation.: If time is entered above; I have spent that time in minutes in the direct care of this critically ill patient, excluding procedure time. ED Disposition Clinical Impression: ESRD (end stage renal disease), Hyperkalemia, Chronic idiopathic thrombocytopenia Anemia Qualifiers: Anemia type: unspecified type Qualified Code(s): D64.9 - Anemia, unspecified Disposition: DC-01 TO HOME OR SELFCARE Is pt being admited?: No Does the pt Need Aspirin: No Condition: Stable Instructions: Chronic Kidney Disease (ED), Hyperkalemia (ED) Additional Instructions: Keep to the renal diet. Kayexalate has discussed. Monitor sugar and give insulin per sliding scale. Diabetic and renal diet. Dialysis tomorrow. Follow up with your weapons mechanic. Referrals: [facility] [Provider Group] - 2-3 Days Time of Disposition: 12:50
[2017-06-26 10:49] VITALS: BP 113/54
--- NOTE | 2017-06-26 11:34 | XRay Report ---
AP CHEST: HISTORY: Cough AP view of the chest demonstrates a normal mediastinal and cardiac contour with clear lungs and normal bony and soft tissue structures. Right IJ venous catheter is unchanged since 05/23/17. IMPRESSION: No acute cardiopulmonary process identified.
== END 2017-06-26 13:19 | disposition home or self-care (01) ==
LOC: ED 17:06
DX: I12.0 Hypertensive chronic kidney disease with stage 5 chronic kidney disease or end stage renal disease (principal); N18.6 End stage renal disease; E11.22 Type 2 diabetes mellitus with diabetic chronic kidney disease; Z99.2 Dependence on renal dialysis; E87.5 Hyperkalemia; D69.3 Immune thrombocytopenic purpura; D64.9 Anemia, unspecified; Z79.4 Long term (current) use of insulin; K21.9 Gastro-esophageal reflux disease without esophagitis
CPT/HCPCS: 36415; 71045; 80048; 82962; 85027; 87400; 93005; 93010; 99284

== ENCOUNTER 2017-11-18 09:22 | Day surgery (SDC) | payer MEDICARE ==
--- NOTE | 2015-06-06 21:36 | Consultation ---
REASON FOR CONSULTATION: Renal failure. RENAL CONSULT HISTORY OF PRESENT ILLNESS: This 45-year-old, female with history of Down syndrome, hypertension, end-stage renal disease, diabetes, was admitted for complications from the AV access in the left upper arm. The patient is a poor historian. I discussed this with the patient's guardian, who reports that the day before patient was having swelling of the access in the left upper arm. She had a right femoral catheter placement for dialysis. Yesterday she noticed purulent drainage coming from the left upper arm dialysis access site. Hence, she was admitted for further evaluation and treatment. The caregiver reports that the patient has not been eating much and also not talking much like usual. Denies fever or chills. PAST MEDICAL HISTORY: History of end-stage renal disease, hypertension, diabetes, history of Down syndrome. SOCIAL HISTORY: No history of smoking, alcohol or drug abuse. FAMILY HISTORY: Not available. REVIEW OF SYSTEMS: No fever or chills reported. Appetite poor. No reports of vomiting or diarrhea. ALLERGIES: FLUCONAZOLE. HOME MEDICATIONS: Reviewed in the chart. Home medications and current medications reviewed. The patient received 1 dose of vancomycin on admission. PHYSICAL EXAMINATION: GENERAL: The patient is alert, not in distress. VITAL SIGNS: Blood pressure 129/70, pulse 87, afebrile. HEENT: Lips noncyanotic. NECK: No JVD. No thyroid enlargement. LUNGS: Clear. HEART: S1, S2 regular. ABDOMEN: Soft. Bowel sounds present. Nontender. EXTREMITIES: Right femoral catheter in place. Dressing over the left upper arm AV access. LABORATORY DATA: WBC 7.7, hemoglobin 10, hematocrit 31.1, platelets 99,000. Sodium 137, potassium 5.9, chloride 100, CO2 17, BUN 106, creatinine 13.1, glucose 270, calcium 8.2. ASSESSMENT AND PLAN: 1. Dialysis access complications, malfunctioning AV access. 2. Hyperkalemia. 3. Metabolic acidosis. 4. End-stage renal disease with uremia. 5. Uncontrolled diabetes. 6. Hypertension. 7. Anemia. 8. Mild thrombocytopenia. Kayexalate as ordered. The patient's hemodialysis schedule is Saturday, , Saturday. Monitor blood glucose closely and adjust insulin. Adjust medications per renal function. Thank you for the consultation. JOB: [id number] / [id number]
[~2017-11-18 09:22] MED LIST changes: -ANCEF/STERILE WATER 2 GM/20 ML 2 GM/20 ML SYRINGE IV NR; +DDAVP 30 MCG in NACL 0.9% 50 ML SUB-Q NR; +MORPHINE ONE; +NACL 0.9% 1000 ML 1,000 ML ONE
[2017-11-18] MEDS ORDERED: NACL 0.9% 1000 ML 1,000 ML IV SCH (10:00)
[2017-11-18] MEDS ORDERED: ANCEF/STERILE WATER 2 GM/20 ML 2 GM/20 ML SYRINGE IV NR (10:00)
[2017-11-18] MEDS ORDERED: HEPARIN/NS 5000 UNIT/500ML(CATH LAB) 1,000 ML IR ONE (10:35)
[2017-11-18] MEDS ORDERED: ANCEF/STERILE WATER 2 GM/20 ML 2 GM/20 ML SYRINGE IV ONE (10:36)
[2017-11-18] MEDS ORDERED: SUBLIMAZE ONE (10:36)
[2017-11-18] MEDS ORDERED: VERSED ONE (10:36)
[2017-11-18] MEDS ORDERED: NACL 0.9% 500 ML 500 ML ONE (10:36)
[2017-11-18] MEDS ORDERED: HEPARIN 10,000 UNITS/10 ML ONE (10:36)
[2017-11-18] MEDS ORDERED: XYLOCAINE 1%/ EPI 1:100,000 INFILTRATI ONE (10:37)
[2017-11-18 10:40] LABS: Basophils # (Auto) 0.1 K/mm3 (0.0-0.1); Eosinophils # (Auto) 0.1 K/mm3 (0.0-0.4); Hematocrit 31.8 % (30.3-42.9); Hemoglobin 10.4 gm/dl (10.1-14.3); Lymphocytes % (Auto) 12.9 % (13.4-35.0); Mean Corpuscular HGB Conc 33 % (30-34); Mean Corpuscular Hemoglobin 32 pg (28-32); Mean Corpuscular Volume 99 fl (79-97); Monocytes # (Auto) 0.7 K/mm3 (0.0-0.8); Platelet Count 114 K/mm3 (140-440); Red Blood Count 3.22 M/mm3 (3.65-5.03); Red Cell Distribution Width 18.1 % (13.2-15.2)
--- NOTE | 2017-11-18 10:46 | Short Stay Summary ---
Short Stay Documentation Date of service: 11/18/17 - History Principal diagnosis: Malfunctioning dialysis access Past Medical History: dialysis, ESRD Past Surgical History: Other (RUE AVG) Social history: no significant social history - Allergies and Medications Current Medications: Allergies fluconazole [From Diflucan] Allergy (Verified 05/23/17 10:25) Swelling Home Medications Medication Instructions Recorded Confirmed Last Taken Type Carvedilol [Coreg] 12.5 mg PO BID 05/26/15 11/18/17 11/17/17 History 12.5mg Insulin Detemir [Levemir VIAL] 30 units SUB-Q QHS 05/26/15 11/18/17 11/17/17 History 30units Sevelamer Carbonate [Renvela] 4 tab PO TIDWM 05/26/15 11/18/17 11/17/17 History 4 amLODIPine [Norvasc] 10 mg PO DAILY 05/26/15 11/18/17 11/17/17 History 10mg B Complex 11/Folic/C/Biot/Zinc 1 each PO DAILY 07/16/16 11/18/17 11/17/17 History [Dialyvite with Zinc Tablet] 1 Ergocalciferol (Vitamin D2) 2,000 unit PO DAILY 05/23/17 11/18/17 11/17/17 History [Vitamin D2] 2000 units Active Medications Cefazolin Sodium (Ancef/Sterile Water 2 Gm/20 Ml) 2 gm in 20 mls @ 80 mls/hr IV PREOP NR; Protocol Stop: 11/18/17 11:30 Sodium Chloride (Nacl 0.9% 1000 Ml) 1,000 mls @ 42 mls/hr IV DIRECT SAMM - Physical exam General appearance: no acute distress, obese Integumentary: no rash HEENT: Atraumatic Lungs: Normal air movement Breasts: deferred Heart: Regular rate Gastrointestinal: normal Female Genitourinary: deferred Rectal Exam: deferred Extremities: abnormal (RUE AVG with decreased thrill) Neurological: Normal gait - Brief post op/procedure progress note Date of procedure: 11/18/17 Pre-op diagnosis: Malfunctioning dialysis access Post-op diagnosis: same Procedure: RUE FGA and venoplasty Anesthesia: local Surgeon: MIK HECTOR Estimated blood loss: minimal Pathology: none Condition: stable - Disposition Condition at discharge: Good Disposition: DC-01 TO HOME OR SELFCARE Short Stay Discharge Plan Activity: advance as tolerated Weight Bearing Status: Weight Bear as Tolerated Diet: regular Wound: keep clean and dry, per your surgeon's advice Follow up with: SHANIA HAGAN MD [Primary Care Provider] - 7 Days
[2017-11-18 10:58] LABS: Calcium 8.3 mg/dL (8.4-10.2)
--- NOTE | 2017-11-18 12:00 | Operative Report ---
Operative Report Operative Report: EXAM: RIGHT UPPER EXTREMITY FISTULOGRAM AND VENOPLASTY CLINICAL INDICATION: PULLING CLOTS IN DIALYSIS/MALFUNCTIONING ACCESS DATE: 11/18/2017 PROCEDURE: Following an explanation of the risks, benefits and alternatives; written informed consent was obtained. The patient was brought to the cardiac catheterization suite and placed in supine position on the examination table. Initial evaluation of the graft demonstrated a faint although palpable thrill. The patient's right upper arm and graft were prepped and draped in the usual sterile fashion. 1% lidocaine was used for anesthesia. The graft was cannulated using a 7 cm 21-gauge needle. A 0.018 guidewire was advanced centrally. The needle was removed and a micro-sheath placed. The 0.018 guidewire was exchanged for a 0.035 guidewire and the micro-sheath exchanged for a 6 Occitan vascular sheath. Contrast was injected through the sheath which demonstrated approximately an 80 % stenosis within the body of the graft. The anastomosis to the HERO graft is widely patent. The HERO graft is patent. With the guidewire advanced across the lesion, a 7 mm x 40 mm balloon was advanced across the lesion and inflated to 10 hal for 1 minute. Post venoplasty imaging demonstrated brisk flow throughout the fistula with reduction of the stenosis to less than 10%. The guidewire and sheath was removed and hemostasis achieved using 4-0 Vicryl suture and Dermabond. A sterile dressing was then applied. The patient tolerated the procedure well. There were no immediate post procedure complications. Conscious sedation was performed under the guidance of radiologic nursing. Continuous cardiopulmonary monitoring was utilized. IMPRESSION: 1) Right upper extremity fistulogram demonstrating 80% stenosis within the body of the graft. 2) Venoplasty with reduction of the stenosis to less than 10%
[2017-11-18 12:41] VITALS: BP 116/54
== END 2017-11-18 12:55 | disposition home or self-care (01) ==
LOC: OR 09:22 → CATH 09:22
PROVIDERS: ATTEND Radiology Diagnostic Radiology
DX: T82.858A Stenosis of other vascular prosthetic devices, implants and grafts, initial encounter (principal); I12.0 Hypertensive chronic kidney disease with stage 5 chronic kidney disease or end stage renal disease; E11.22 Type 2 diabetes mellitus with diabetic chronic kidney disease; N18.6 End stage renal disease; D69.6 Thrombocytopenia, unspecified; E11.65 Type 2 diabetes mellitus with hyperglycemia; Q90.9 Down syndrome, unspecified; Y83.2 Surgical operation with anastomosis, bypass or graft as the cause of abnormal reaction of the patient, or of later complication, without mention of misadventure at the time of the procedure; Z88.1 Allergy status to other antibiotic agents
CPT/HCPCS: 36415; 36902; 80048; 82962; 85025; 99156; C1725; C1751; C1894; J0690; J1644; J2250; J3010; J7040; J2270; J2597; J7030; Q9967

== ENCOUNTER 2018-07-09 07:21 | Day surgery (SDC) | payer MEDICARE ==
[~2018-07-09 07:21] MED LIST changes: +ANCEF/STERILE WATER 2 GM/20 ML 2 GM/20 ML SYRINGE IV NR; -DDAVP 30 MCG in NACL 0.9% 50 ML SUB-Q NR; -MORPHINE ONE; +NACL 0.9% 1000 ML 1,000 ML IV SCH; -NACL 0.9% 1000 ML 1,000 ML ONE
[2018-07-09] MEDS ORDERED: HEPARIN 10,000 UNITS/10 ML ONE (08:48)
[2018-07-09] MEDS ORDERED: HEPARIN/NS 5000 UNIT/500ML(CATH LAB) 1,000 ML IR ONE (08:48)
[2018-07-09] MEDS ORDERED: NACL 0.9% 500 ML 500 ML ONE (09:33)
--- NOTE | 2018-07-09 09:59 | Short Stay Summary ---
Short Stay Documentation Date of service: 07/09/18 - History Principal diagnosis: Malfunctioning dialysis access Past Medical History: dialysis, ESRD Past Surgical History: Other (multpile upper extremity accesses) Social history: single - Allergies and Medications Current Medications: Allergies fluconazole [From Diflucan] Allergy (Verified 05/23/17 10:25) Swelling Home Medications Medication Instructions Recorded Confirmed Last Taken Type Carvedilol [Coreg] 12.5 mg PO BID 05/26/15 07/09/18 07/08/18 History 12.5mg Insulin Detemir [Levemir VIAL] 30 units SUB-Q QHS 05/26/15 07/09/18 07/08/18 History 30units amLODIPine [Norvasc] 10 mg PO DAILY 05/26/15 07/09/18 07/08/18 History 10mg B Complex 11/Folic/C/Biot/Zinc 1 each PO DAILY 07/16/16 07/09/18 07/08/18 History [Dialyvite with Zinc Tablet] 1 tab Ergocalciferol (Vitamin D2) 2,000 unit PO DAILY 05/23/17 07/09/18 07/08/18 History [Vitamin D2] 2000 units Calcium Acetate [Phoslo] 667 mg PO AC 07/09/18 07/09/18 07/08/18 History 1 tab Sodium Bicarbonate 2 tab PO DAILY 07/09/18 07/09/18 07/08/18 History 2 tab Active Medications Cefazolin Sodium (Ancef/Sterile Water 2 Gm/20 Ml) 2 gm in 20 mls @ 80 mls/hr IV PREOP NR; Protocol Stop: 07/09/18 23:59 Sodium Chloride (Nacl 0.9% 1000 Ml) 1,000 mls @ 42 mls/hr IV DIRECT SAMM - Physical exam General appearance: no acute distress Integumentary: no rash, no growths HEENT: Atraumatic Lungs: Normal air movement Breasts: deferred Heart: Regular rate Gastrointestinal: normal Female Genitourinary: deferred Rectal Exam: deferred - Brief post op/procedure progress note Date of procedure: 07/09/18 Pre-op diagnosis: Malfunctioning dialysis access Post-op diagnosis: same Procedure: RUE thrombectomy, venoplasty Anesthesia: local Surgeon: MIK HECTOR Estimated blood loss: minimal Pathology: none Condition: stable - Disposition Condition at discharge: Good Disposition: DC-01 TO HOME OR SELFCARE Short Stay Discharge Plan Activity: advance as tolerated Weight Bearing Status: Weight Bear as Tolerated Diet: regular Wound: keep clean and dry, per your surgeon's advice Follow up with: TAMEKA ORDOÑEZ MD [Primary Care Provider] - 7 Days
[2018-07-09] MEDS: VERSED ONE ×3 (10:14→10:39)
[2018-07-09] MEDS: SUBLIMAZE ONE ×3 (10:17→10:39)
[2018-07-09] MEDS: XYLOCAINE 2% INFILTRATI ONE ×2 (10:17→10:23)
--- NOTE | 2018-07-09 11:03 | Operative Report ---
Operative Report Operative Report: Exam: Right upper extremity fistulogram, thrombectomy, venoplasty Clinical indication: Patient with thrombosed right upper extremity graft/HERO graft Date: 07/09/2018 Procedure: Following an explanation of the risks, benefits and alternatives; written informed consent was obtained. The patient was brought into the angiographic suite and placed in supine position on the examination table. Initial ultrasound evaluation of the graft demonstrated thrombus from the arterial anastomosis to the anastomosis with the HERO graft. Patient's right upper arm was prepped and draped in the usual sterile fashion. 1% lidocaine was used for anesthesia. The graft was cannulated under ultrasound guidance towards the venous anastomosis using a 7 cm 21-gauge needle. 0.018 guidewire was advanced centrally. The needle was removed and a micro-sheath placed. The 0.018 guidewire was exchanged for a 0.035 guidewire and a micro-sheath exchanged for a 7 [place] vascular sheath. A 4 [place] vertebral catheter was advanced over the guidewire. Together guidewire and catheter were manipulated centrally. Thrombus is not identified within the patient's hero graft. There is thrombus extending from the arterial anastomosis to the venous anastomosis. There is a 70% stenosis at the venous anastomosis and a second 70% stenosis in the mid body of the graft cannulation site. Mechanical thrombectomy was performed using a TreretAccuvant mechanical thrombectomy device. Venoplasty was then performed using a 7 mm balloon insufflated to nominal atmospheres. Additional venoplasty was performed using a conquest balloon secondary to significant stenosis at the venous anastomosis. Under ultrasound guidance, access was obtained towards the arterial anastomosis using a 7 cm 21-gauge needle. A 0.018 guidewire was advanced towards the arterial anastomosis. The needle was removed and a micro-sheath placed. A 0.018 guidewire was exchanged for 0.035 Glidewire and the micro-sheath exchanged for a 6 [place] vascular sheath. A 5.5 [place] Francis balloon was advanced over the guidewire through the arterial anastomosis. The arterial plug was swept free. The vertebral catheter was then again advanced over the guidewire. Guidewire was removed and angiography performed from the brachial artery. There is prompt transit of contrast through the fistula centrally. A minimal amount of residual thrombus is identified adherent to the arterial sheath. The arterial sheath was removed and hemostasis achieved 4-0 Vicryl suture. A 7 mm balloon was then advanced over the guidewire through the venous sheath and use to sweep the graft. The balloon was removed and venography performed through the sheath which demonstrates brisk flow throughout the graft. The venous sheath was removed and hemostasis achieved using 4-0 Vicryl suture. Sterile dressings were then applied. The patient tolerated the procedure well. There were no immediate post procedure complications. Conscious sedation was performed under the guidance of radiologic nursing. Continuous cardiopulmonary monitoring was utilized. Impression: 1) Right upper extremity fistulogram demonstrating thrombus from the arterial anastomosis to the venous anastomosis. 2) Mechanical thrombectomy of the grafrt. 3) Treatment of venous anastomotic stenosis and cannulation site stenosis using a 7 mm balloon with residual less than 20% stenosis.
[2018-07-09 11:42] VITALS: BP 112/51
== END 2018-07-09 12:15 | disposition home or self-care (01) ==
LOC: CATHLABREC 07:21
PROVIDERS: ATTEND Radiology Diagnostic Radiology
DX: T82.868A Thrombosis due to vascular prosthetic devices, implants and grafts, initial encounter (principal); T82.858A Stenosis of other vascular prosthetic devices, implants and grafts, initial encounter; I12.0 Hypertensive chronic kidney disease with stage 5 chronic kidney disease or end stage renal disease; E11.22 Type 2 diabetes mellitus with diabetic chronic kidney disease; N18.6 End stage renal disease; J45.909 Unspecified asthma, uncomplicated; K21.9 Gastro-esophageal reflux disease without esophagitis; D64.9 Anemia, unspecified; Z99.2 Dependence on renal dialysis; Z79.899 Other long term (current) drug therapy; Z79.01 Long term (current) use of anticoagulants; Z79.4 Long term (current) use of insulin; Z86.718 Personal history of other venous thrombosis and embolism; Z88.8 Allergy status to other drugs, medicaments and biological substances; Z98.42 Cataract extraction status, left eye; Y83.8 Other surgical procedures as the cause of abnormal reaction of the patient, or of later complication, without mention of misadventure at the time of the procedure; Y92.89 Other specified places as the place of occurrence of the external cause
CPT/HCPCS: 36415; 36905; 82962; 84132; C1725; C1751; C1757; C1769; C1894; J1644; J2250; J3010; J7040; Q9967

== ENCOUNTER 2018-09-08 00:48 | Emergency (ER) | payer MEDICARE ==
[2018-09-08 01:45] LABS: Basophils % (Auto) 0.5 % (0.0-1.8); Eosinophils # (Auto) 0.1 K/mm3 (0.0-0.4); Eosinophils % (Auto) 0.6 % (0.0-4.3); Hemoglobin 10.7 gm/dl (10.1-14.3); Lymphocytes # (Auto) 0.8 K/mm3 (1.2-5.4); Lymphocytes % (Auto) 8.3 % (13.4-35.0); Mean Corpuscular HGB Conc 34 % (30-34); Mean Corpuscular Volume 96 fl (79-97); Monocytes # (Auto) 1.1 K/mm3 (0.0-0.8); Monocytes % (Auto) 11.8 % (0.0-7.3); Platelet Count 119 K/mm3 (140-440); Red Blood Count 3.32 M/mm3 (3.65-5.03); Red Cell Distribution Width 16.7 % (13.2-15.2)
[2018-09-08 02:09] LABS: Albumin 3.4 g/dL (3.9-5); Calcium 8.6 mg/dL (8.4-10.2)
--- NOTE | 2018-09-08 02:59 | Cat Scan Report ---
PROCEDURE: CT ABDOMEN PELVIS WO CON TECHNIQUE: Computerized axial tomography of the abdomen was performed without intravenous contrast. This study is performed without intravascular contrast material and its sensitivity for abdominal and pelvic pathology, including neoplasms, inflammation, abscess, free fluid, thrombosis, arterial disse ction and infarction, is reduced compared with a contrast enhanced study. HISTORY: abd pain COMPARISONS: None . FINDINGS: Visualized lower thorax: No significant abnormality. Liver: Normal size and attenuation. Spleen: Normal size and attenuation. Gallbladder and biliary system: Normal. Pancreas: Normal. Adrenals: Normal. Kidneys: Kidneys are atrophic. No evidence hydronephrosis. GI tract: No evidence of bowel obstruction. No CT evidence for appendicitis or diverticulitis. Lymph nodes and mesentery: Normal. Vasculature: Normal. Peritoneum: No free fluid. Musculoskeletal structures: No significant abnormality. Other: Moderate fat-containing umbilical hernia noted. No evidence for bowel incarceration. IMPRESSION: Moderate fat-containing umbilical hernia. No evidence of bowel incarceration. This document is electronically signed by Marina Yates MD., September 08 2018 02:57:22 AM ET
[2018-09-08] MEDS ORDERED: NACL 0.9% 500 ML 500 ML IV ONE (04:05)
[2018-09-08 04:48] VITALS: BP 106/43
--- NOTE | 2018-09-08 05:16 | Emergency Department Report ---
ED General Adult HPI - General Chief complaint: Hypoglycemia Stated complaint: ABD PAIN/UNRESPONSIVE Time Seen by Provider: 09/08/18 01:02 Source: family Mode of arrival: Stretcher Limitations: Other - History of Present Illness Initial comments: Patient is a 48-year-old female with past medical history of end-stage renal disease diabetes and Down syndrome who is presenting status post unresponsive episode where her blood sugar was 29. The patient's caregiver crushed up a glucose tablet and was able to get it under the patient's tongue. Patient is awake and alert on arrival her only complaint is some mid abdominal discomfort. Patient on arrival had a blood glucose of 145. Severity scale (0 -10): 0 - Related Data Home Medications Medication Instructions Recorded Confirmed Last Taken Carvedilol [Coreg] 12.5 mg PO BID 05/26/15 07/09/18 07/08/18 12.5mg Insulin Detemir [Levemir VIAL] 30 units SUB-Q QHS 05/26/15 07/09/18 07/08/18 30units amLODIPine [Norvasc] 10 mg PO DAILY 05/26/15 07/09/18 07/08/18 10mg B Complex 11/Folic/C/Biot/Zinc 1 each PO DAILY 07/16/16 07/09/18 07/08/18 [Dialyvite with Zinc Tablet] 1 tab Ergocalciferol (Vitamin D2) 2,000 unit PO DAILY 05/23/17 07/09/18 07/08/18 [Vitamin D2] 2000 units Calcium Acetate [Phoslo] 667 mg PO AC 07/09/18 07/09/18 07/08/18 1 tab Sodium Bicarbonate 2 tab PO DAILY 07/09/18 07/09/18 07/08/18 2 tab Allergies Allergy/AdvReac Type Severity Reaction Status Date / Time fluconazole [From Diflucan] Allergy Swelling Verified 05/23/17 10:25 ED Review of Systems ROS: Stated complaint: ABD PAIN/UNRESPONSIVE Other details as noted in HPI Comment: Unobtainable due to pts medical conditions ED Past Medical Hx - Past Medical History Hx Hypertension: Yes Hx Heart Attack/AMI: No Hx Congestive Heart Failure: No Hx Diabetes: Yes Hx GERD: Yes Hx Liver Disease: No Hx Renal Disease: Yes (Sat) Hx Sickle Cell Disease: No Hx Seizures: No Hx Asthma: No Hx COPD: No Additional medical history: Down syndrome - Surgical History Hx Pacemaker: No Hx Internal Defibrillator: No Additional Surgical History: Fistula left upper armCataracts surgery - Social History Smoking Status: Never Smoker Substance Use Type: None - Medications Home Medications: Home Medications Medication Instructions Recorded Confirmed Last Taken Type Carvedilol [Coreg] 12.5 mg PO BID 05/26/15 07/09/18 07/08/18 History 12.5mg Insulin Detemir [Levemir VIAL] 30 units SUB-Q QHS 05/26/15 07/09/18 07/08/18 History 30units amLODIPine [Norvasc] 10 mg PO DAILY 05/26/15 07/09/18 07/08/18 History 10mg B Complex 11/Folic/C/Biot/Zinc 1 each PO DAILY 07/16/16 07/09/18 07/08/18 History [Dialyvite with Zinc Tablet] 1 tab Ergocalciferol (Vitamin D2) 2,000 unit PO DAILY 05/23/17 07/09/18 07/08/18 History [Vitamin D2] 2000 units Calcium Acetate [Phoslo] 667 mg PO AC 07/09/18 07/09/18 07/08/18 History 1 tab Sodium Bicarbonate 2 tab PO DAILY 07/09/18 07/09/18 07/08/18 History 2 tab ED Physical Exam - General Limitations: Other General appearance: alert, in no apparent distress - Head Head exam: Present: atraumatic, normocephalic - Eye Eye exam: Present: normal appearance - ENT ENT exam: Present: mucous membranes moist - Neck Neck exam: Present: normal inspection - Respiratory Respiratory exam: Present: normal lung sounds bilaterally. Absent: respiratory distress, wheezes, rales, rhonchi - Cardiovascular Cardiovascular Exam: Present: regular rate, normal rhythm. Absent: systolic murmur, diastolic murmur, rubs, gallop - GI/Abdominal GI/Abdominal exam: Present: soft, normal bowel sounds. Absent: distended, tenderness, guarding, rebound, rigid - Extremities Exam Extremities exam: Present: normal inspection - Back Exam Back exam: Present: normal inspection - Neurological Exam Neurological exam: Present: alert, oriented X3 - Psychiatric Psychiatric exam: Present: normal affect, normal mood - Skin Skin exam: Present: warm, dry, intact, normal color. Absent: rash ED Course Vital Signs 09/08/18 09/08/18 09/08/18 01:08 01:16 03:08 Temperature 97.6 F Pulse Rate 81 76 Respiratory 16 16 16 Rate Blood Pressure 97/46 89/39 [Left] O2 Sat by Pulse 100 100 97 Oximetry 09/08/18 09/08/18 03:20 04:47 Temperature Pulse Rate 91 H 82 Respiratory 16 16 Rate Blood Pressure 101/43 106/43 [Left] O2 Sat by Pulse 97 100 Oximetry ED Medical Decision Making - Lab Data Result diagrams: 09/08/18 01:15 09/08/18 01:15 Lab Results 09/08/18 09/08/18 09/08/18 Range/Units 01:15 01:15 01:15 WBC 9.1 (4.5-11.0) K/mm3 RBC 3.32 L (3.65-5.03) M/mm3 Hgb 10.7 (10.1-14.3) gm/dl Hct 32.0 (30.3-42.9) % MCV 96 (79-97) fl MCH 32 (28-32) pg MCHC 34 (30-34) % RDW 16.7 H (13.2-15.2) % Plt Count 119 L (140-440) K/mm3 Lymph % (Auto) 8.3 L (13.4-35.0) % [place] % (Auto) 11.8 H (0.0-7.3) % Eos % (Auto) 0.6 (0.0-4.3) % Baso % (Auto) 0.5 (0.0-1.8) % Lymph # 0.8 L (1.2-5.4) K/mm3 [place] # 1.1 H (0.0-0.8) K/mm3 Eos # 0.1 (0.0-0.4) K/mm3 Baso # 0.0 (0.0-0.1) K/mm3 Seg Neutrophils % 78.8 H (40.0-70.0) % Seg Neutrophils # 7.2 (1.8-7.7) K/mm3 Sodium 138 (137-145) mmol/L Potassium 4.2 (3.6-5.0) mmol/L Chloride 99.0 (98-107) mmol/L Carbon Dioxide 25 (22-30) mmol/L Anion Gap 18 mmol/L BUN 65 H (7-17) mg/dL Creatinine 9.7 H (0.7-1.2) mg/dL Estimated GFR 5 ml/min BUN/Creatinine Ratio 7 % Glucose 50 L (65-100) mg/dL POC Glucose (70-105) Calcium 8.6 (8.4-10.2) mg/dL Total Bilirubin 0.20 (0.1-1.2) mg/dL AST 17 (5-40) units/L ALT 12 (7-56) units/L Alkaline Phosphatase 125 (35-129) units/L Total Protein 6.9 (6.3-8.2) g/dL Albumin 3.4 L (3.9-5) g/dL Albumin/Globulin Ratio 1.0 % Lipase (13-60) units/L HCG, Qual Negative (Negative) 09/08/18 09/08/18 Range/Units 01:15 02:45 WBC (4.5-11.0) K/mm3 RBC (3.65-5.03) M/mm3 Hgb (10.1-14.3) gm/dl Hct (30.3-42.9) % MCV (79-97) fl MCH (28-32) pg MCHC (30-34) % RDW (13.2-15.2) % Plt Count (140-440) K/mm3 Lymph % (Auto) (13.4-35.0) % [place] % (Auto) (0.0-7.3) % Eos % (Auto) (0.0-4.3) % Baso % (Auto) (0.0-1.8) % Lymph # (1.2-5.4) K/mm3 [place] # (0.0-0.8) K/mm3 Eos # (0.0-0.4) K/mm3 Baso # (0.0-0.1) K/mm3 Seg Neutrophils % (40.0-70.0) % Seg Neutrophils # (1.8-7.7) K/mm3 Sodium (137-145) mmol/L Potassium (3.6-5.0) mmol/L Chloride (98-107) mmol/L Carbon Dioxide (22-30) mmol/L Anion Gap mmol/L BUN (7-17) mg/dL Creatinine (0.7-1.2) mg/dL Estimated GFR ml/min BUN/Creatinine Ratio % Glucose (65-100) mg/dL POC Glucose 237 H (70-105) Calcium (8.4-10.2) mg/dL Total Bilirubin (0.1-1.2) mg/dL AST (5-40) units/L ALT (7-56) units/L Alkaline Phosphatase (35-129) units/L Total Protein (6.3-8.2) g/dL Albumin (3.9-5) g/dL Albumin/Globulin Ratio % Lipase 53 (13-60) units/L HCG, Qual (Negative) - Medical Decision Making Patient's blood glucose remained within normal limits during her stay. Patient noted to have a slightly low blood sugar pressure. This was monitored however did not correct until patient was given 500 mL bolus normal saline. Patient's abdominal discomfort likely secondary to some abdominal cramps from some mild dehydration. Patient discharged home and follow-up with dialysis as scheduled. Critical care attestation.: If time is entered above; I have spent that time in minutes in the direct care of this critically ill patient, excluding procedure time. ED Disposition Clinical Impression: Hypoglycemia, Mild dehydration Disposition: DC-01 TO HOME OR SELFCARE Is pt being admited?: No Does the pt Need Aspirin: No Condition: Stable Instructions: Dehydration (ED), Diabetic Hypoglycemia (ED) Additional Instructions: Your abdominal cramps are likely from mild dehydration. Referrals: PRIMARY CARE, [Primary Care Provider] - 3-5 Days Time of Disposition: 05:16
== END 2018-09-08 06:09 | disposition home or self-care (01) ==
LOC: ED 00:48
DX: E11.649 Type 2 diabetes mellitus with hypoglycemia without coma (principal); E86.0 Dehydration; I10 Essential (primary) hypertension; K21.9 Gastro-esophageal reflux disease without esophagitis; Z79.4 Long term (current) use of insulin; Z88.8 Allergy status to other drugs, medicaments and biological substances
CPT/HCPCS: 36415; 74176; 80053; 82962; 83690; 84703; 85025; 99284; J7040

== ENCOUNTER 2018-12-23 08:48 | Inpatient (IN) | payer MEDICARE ==
--- NOTE | 2018-12-23 09:24 | Emergency Department Report ---
ED Extremity Problem HPI - General Chief complaint: Extremity Problem,Nontraumatic Stated complaint: DIALYSIS/GRAFT CLOTTED Time Seen by Provider: 12/23/18 09:02 Source: patient, family Mode of arrival: Carried (Peds) Limitations: No Limitations - History of Present Illness Initial comments: 48-year-old female with a past medical history of Down's syndrome, end-stage renal disease on dialysis Saturday, , and Saturday, GERD, and hypertension presents to the hospital with clotted right AV graft. Patient's last dialysis was 12/18/2018. Sister at the bedside providing history of present illness due to patient's baseline mental disability. Sister has noted that the patient appeared to have some mild shortness of breath today. As per medical record review in July 2018 patient had a fistulogram and declotting of AV access in July [address] Jiménez. Patient however, has been to [place] [id number] since then and had her access declotted by Dr. Luque. Patient still makes urine. She does not see either physician group in the office. Procurement Assistant: Dr Shine Severity scale (0 -10): 0 - Related Data Home Medications Medication Instructions Recorded Confirmed Last Taken Carvedilol [Coreg] 12.5 mg PO BID 05/26/15 12/23/18 12/22/18 Insulin Detemir [Levemir VIAL] 30 units SUB-Q QHS 05/26/15 12/23/18 12/23/18 amLODIPine [Norvasc] 10 mg PO DAILY 05/26/15 12/23/18 12/22/18 B Complex 11/Folic/C/Biot/Zinc 1 each PO DAILY 07/16/16 12/23/18 12/22/18 [Dialyvite with Zinc Tablet] Calcium Acetate [Phoslo] 667 mg PO AC 07/09/18 12/23/18 12/23/18 Sodium Bicarbonate 2 tab PO DAILY 07/09/18 12/23/18 12/22/18 Allergies Allergy/AdvReac Type Severity Reaction Status Date / Time fluconazole [From Diflucan] Allergy Swelling Verified 05/23/17 10:25 ED Review of Systems ROS: Stated complaint: DIALYSIS/GRAFT CLOTTED Other details as noted in HPI Comment: All other systems reviewed and negative ED Past Medical Hx - Past Medical History Previous Medical History?: Yes Hx Hypertension: Yes Hx Heart Attack/AMI: No Hx Congestive Heart Failure: No Hx Diabetes: Yes Hx GERD: Yes Hx Liver Disease: No Hx Renal Disease: Yes (naye Schneider) Hx Sickle Cell Disease: No Hx Seizures: No Hx Asthma: No Hx COPD: No Additional medical history: Down syndrome - Surgical History Past Surgical History?: Yes Hx Pacemaker: No Hx Internal Defibrillator: No Additional Surgical History: Fistula left upper armCataracts surgery - Social History Smoking Status: Never Smoker Substance Use Type: None - Medications Home Medications: Home Medications Medication Instructions Recorded Confirmed Last Taken Type Carvedilol [Coreg] 12.5 mg PO BID 05/26/15 12/23/18 12/22/18 History Insulin Detemir [Levemir VIAL] 30 units SUB-Q QHS 05/26/15 12/23/18 12/23/18 History amLODIPine [Norvasc] 10 mg PO DAILY 05/26/15 12/23/18 12/22/18 History B Complex 11/Folic/C/Biot/Zinc 1 each PO DAILY 07/16/16 12/23/18 12/22/18 History [Dialyvite with Zinc Tablet] Calcium Acetate [Phoslo] 667 mg PO AC 07/09/18 12/23/18 12/23/18 History Sodium Bicarbonate 2 tab PO DAILY 07/09/18 12/23/18 12/22/18 History ED Physical Exam - General Limitations: No Limitations ED Course Vital Signs 12/23/18 12/23/18 12/23/18 08:51 11:30 11:45 Temperature 98 F Pulse Rate 80 85 78 Respiratory 16 16 Rate Blood Pressure 116/67 Blood Pressure 130/64 121/60 [Left] O2 Sat by Pulse 99 94 Oximetry 12/23/18 12:01 Temperature Pulse Rate 83 Respiratory Rate Blood Pressure Blood Pressure 137/68 [Left] O2 Sat by Pulse Oximetry - Reevaluation(s) Reevaluation #1: 12/23/18 10:15 potassium is greater than 7, BUN also significant elevated and patient will require emergent dialysis. I requested that ward secretary re-call Dr. Cam Phillips/[facility] group because patient will need access for emergent dialysis. Sodium bicarbonate, albuterol, insulin, glucose, calcium, and Lasix ordered 12/23/18 12:25 Kayexlate ordered at this point until vascular access can be obtained. - Consultations Consultation #1: 12/23/18 Dr luque paged with answering service at 9:11 am Lloyd paged overhead at 9:15am 12/23/18 09:34 Answering service states Lloyd is off all week [facility] is the OR Dr Luque is about to enter the OR There is no one from this group available to discuss if they are willing to take this pt so I will reach out to [facility] vascular group since they are customer liaison. 12/23/18 09:50 case d/w Dr Gil, with [facility] group. He state pt belongs to [facility]. I am still awaiting call back 12/23/18 10:16 Dr Luque's ward secretary states that Dr. Luque will call back soon as he is done with his procedure 12/23/18 10:28 call placed to Nephrology/Dr Shine group. Pt will need stat dialysis once vascular access obtained 12/23/18 10:38 Dr Cisneros/nephro customer liaison MD for Dr Shine on way to ED. She ordered additional calcium. 12/23/18 11:[address] Moore. He confirms that any patient comes to the ER and needs vascular consult will go to the group customer liaison even if the patient is seen by a different group since Dr Luque's group does not take ER call. Dr. Gil will be re-paged at this time 12/23/18 11:16 received call back from Dr Luque at this time and informed me to consult the group customer liaison. 12/23/18 12:05 still awaiting call back from Dr Gil. I attempted to call Dr Jiménez. A female answered his phone and states Dr Gil is in the Hospital. I informed her he is not responding to page she will have someone call back. Er number and my Name provided. 12/23/18 12:[address] Rainey, He states he confirmed with Dr Jiménez (vascular) that they will take care of patient therefore I will not continue to repage the group. 12/23/18 14:07 Dr gil note reviewed stating that he informed me to contact other group (based on our original conversation). I have not received a callback to ED after our initial conversation despite repeat page attempts. Dr Mesa is still trying to confirm that vascular surgeon will place access or declot the current graft. She was unable to get a hold of Dr Jiménez. I informed her to call Oscar at this time for further assistance since I have been unsuccessful with my attempts to confirm plan for vascular assess. ED Medical Decision Making - Lab Data Result diagrams: 12/23/18 09:20 12/23/18 09:20 Lab Results 12/23/18 12/23/18 12/23/18 Range/Units 09:20 09:20 09:20 WBC 5.7 (4.5-11.0) K/mm3 RBC 2.72 L (3.65-5.03) M/mm3 Hgb 8.8 L (10.1-14.3) gm/dl Hct 26.9 L (30.3-42.9) % MCV 99 H (79-97) fl MCH 33 H (28-32) pg MCHC 33 (30-34) % RDW 19.8 H (13.2-15.2) % Plt Count 107 L (140-440) K/mm3 Lymph % (Auto) 13.7 (13.4-35.0) % [place] % (Auto) 10.3 H (0.0-7.3) % Eos % (Auto) 1.1 (0.0-4.3) % Baso % (Auto) 0.6 (0.0-1.8) % Lymph # 0.8 L (1.2-5.4) K/mm3 [place] # 0.6 (0.0-0.8) K/mm3 Eos # 0.1 (0.0-0.4) K/mm3 Baso # 0.0 (0.0-0.1) K/mm3 Seg Neutrophils % 74.3 H (40.0-70.0) % Seg Neutrophils # 4.2 (1.8-7.7) K/mm3 PT 14.0 (12.2-14.9) Sec. INR 1.11 (0.87-1.13) APTT > 240.0 H* (24.2-36.6) Sec. Sodium 136 L (137-145) mmol/L Potassium 7.3 H* (3.6-5.0) mmol/L Chloride 96.4 L (98-107) mmol/L Carbon Dioxide 17 L (22-30) mmol/L Anion Gap 30 mmol/L BUN 125 H (7-17) mg/dL Creatinine 18.1 H (0.7-1.2) mg/dL Estimated GFR 3 ml/min BUN/Creatinine Ratio 7 % Glucose 113 H (65-100) mg/dL Calcium 7.7 L (8.4-10.2) mg/dL - EKG Data -: EKG Interpreted by Me EKG shows normal: sinus rhythm, axis (qrs 49), intervals (borderline RI prolongaton), QRS complexes (qrsd 96), ST-T waves (mild peak t waves) Rate: normal (73) - EKG Data When compared to previous EKG there are: changes noted - Radiology Data Radiology results: report reviewed cxr: naf - Medical Decision Making Patient has significant hyperkalemia with EKG changes and uremia requiring emergent dialysis. Patient would need either related to clotting or temporary access for dialysis Nephrology aware, came to ER to evaluate patient and awaiting access Vascular consults it for assess placement case d/w hospitalist at 11:20 AM - Differential Diagnosis esrd, hyperkalemia, volume overload, clotted access Critical Care Time: No Critical care attestation.: If time is entered above; I have spent that time in minutes in the direct care of this critically ill patient, excluding procedure time. ED Disposition Clinical Impression: ESRD needing dialysis, Hyperkalemia, Uremia Thrombosis of arteriovenous graft Qualifiers: Encounter type: initial encounter Qualified Code(s): T82.868A - Thrombosis due to vascular prosthetic devices, implants and grafts, initial encounter Disposition: -09 OP ADMIT IP TO THIS HOSP Is pt being admited?: Yes Condition: Stable Referrals: SHANIA HAGAN MD [Primary Care Provider] - 3-5 Days Time of Disposition: 10:47
[2018-12-23 09:42] LABS: Basophils % (Auto) 0.6 % (0.0-1.8); Eosinophils # (Auto) 0.1 K/mm3 (0.0-0.4); Eosinophils % (Auto) 1.1 % (0.0-4.3); Hematocrit 26.9 % (30.3-42.9); Hemoglobin 8.8 gm/dl (10.1-14.3); Lymphocytes # (Auto) 0.8 K/mm3 (1.2-5.4); Lymphocytes % (Auto) 13.7 % (13.4-35.0); Mean Corpuscular HGB Conc 33 % (30-34); Mean Corpuscular Volume 99 fl (79-97); Monocytes # (Auto) 0.6 K/mm3 (0.0-0.8); Monocytes % (Auto) 10.3 % (0.0-7.3); Platelet Count 107 K/mm3 (140-440); Red Blood Count 2.72 M/mm3 (3.65-5.03); Red Cell Distribution Width 19.8 % (13.2-15.2)
[2018-12-23 09:53] LABS: INR 1.11 (0.87-1.13)
[2018-12-23 10:01] LABS: Calcium 7.7 mg/dL (8.4-10.2)
[2018-12-23] MEDS ORDERED: PROVENTIL IH ONE (10:10)
[2018-12-23] MEDS ORDERED: HumuLIN R IV ONE (10:10)
[2018-12-23 10:11] LABS: Partial Thromboplastin Time > 240.0 Sec. (24.2-36.6)
[2018-12-23] MEDS ORDERED: LASIX IV ONE (10:11)
--- NOTE | 2018-12-23 10:12 | XRay Report ---
CHEST 1 VIEW 12/23/2018 9:37 AM INDICATION / CLINICAL INFORMATION: Shortness of breath. Missed dialysis. COMPARISON: Chest x-ray on 06/26/2017. FINDINGS: SUPPORT DEVICES: Large bore right IJ central venous catheter in place with the tip projecting over th e right atrium. HEART / MEDIASTINUM: No significant abnormality. LUNGS / PLEURA: No significant pulmonary or pleural abnormality. No pneumothorax. ADDITIONAL FINDINGS: No significant additional findings. IMPRESSION: 1. No acute findings. Signer Name: Urban Duke MD Signed: 12/23/2018 10:08 AM Workstation Name: [id number]
[2018-12-23] MEDS ORDERED: CALCIUM GLUCONATE 1,000 MG in NACL 0.9% 100 ML IV ONE ×2 (10:35→12:00)
[2018-12-23] MEDS ORDERED: CALCIUM GLUCONATE 1,000 MG in NACL 0.9% 100 ML IV NR (11:00)
[2018-12-23] MEDS ORDERED: D50W (25GM) Vial IV ONE (11:00)
[2018-12-23] MEDS ORDERED: D50W (25GM) Syringe IV ONE (12:00)
[2018-12-23] MEDS ORDERED: KIONEX PO ONE (12:23)
--- NOTE | 2018-12-23 12:45 | History and Physical Report ---
History of Present Illness Chief complaint: Clotted Access History of present illness: 48 YO Female with HTN, DM, GERD, ESRD on HD(T,R,Sa), Down Syndrome presents to ED for evaluation. Pt unable to provide detailed history, but history provided by patient sister who is at bedside during exam and interview. As per sister, the pt was in her usual state of health but has experienced pain and swelling to her right arm over the past 3 days. Pt found to have clotted AV Fistula and presents to ED for evaluation. Patient's last dialysis was 12/18/2018. Pt seen and evaluated in ED and found to have clotted AV fistula, ESRD in need of dialysis, Acidosis, Hyperkalemia, Hypocalcemia. Dr. Jiménez, as well as Dr. Luque notified as per ED Physician and pending surgical intervention. Nephrology consulted in ED. No further history obtainable. Prior admission on 05/23/17 reviewed. All listed medication reconciled at time of admission. No EKG changes. Pt treated with kayexelate, Calcium gluconate in ED. Past History Past Medical History: diabetes, ESRD, GERD, hypertension Past Surgical History: cataract removal, Other (AV Fistula, ) Social history: single. denies: smoking, alcohol abuse, prescription drug abuse Family history: diabetes, hypertension Medications and Allergies Allergies Allergy/AdvReac Type Severity Reaction Status Date / Time fluconazole [From Diflucan] Allergy Swelling Verified 05/23/17 10:25 Home Medications Medication Instructions Recorded Confirmed Last Taken Type Carvedilol [Coreg] 12.5 mg PO BID 05/26/15 12/23/18 12/22/18 History Insulin Detemir [Levemir VIAL] 30 units SUB-Q QHS 05/26/15 12/23/18 12/23/18 History amLODIPine [Norvasc] 10 mg PO DAILY 05/26/15 12/23/18 12/22/18 History B Complex 11/Folic/C/Biot/Zinc 1 each PO DAILY 07/16/16 12/23/18 12/22/18 History [Dialyvite with Zinc Tablet] Calcium Acetate [Phoslo] 667 mg PO AC 07/09/18 12/23/18 12/23/18 History Sodium Bicarbonate 2 tab PO DAILY 07/09/18 12/23/18 12/22/18 History Review of Systems ROS unobtainable: due to mental status Exam - Constitutional Vitals: Temp Pulse Resp BP Pulse Ox 98 F 83 16 137/68 94 12/23/18 08:51 12/23/18 12:01 12/23/18 11:30 12/23/18 12:01 12/23/18 11:30 General appearance: Present: mild distress - EENT Eyes: Present: PERRL ENT: hearing intact, clear oral mucosa - Neck Neck: Present: supple, normal ROM - Respiratory Respiratory effort: normal Respiratory: bilateral: CTA - Cardiovascular Heart Sounds: Present: S1 & S2. Absent: rub, click - Extremities Extremities: pulses symmetrical, No edema Extremity abnormal: edema (RUE edema, No thrill to RUE AVF.) Peripheral Pulses: within normal limits - Abdominal General gastrointestinal: Present: soft, non-tender, non-distended, normal bowel sounds Female genitourinary: Present: normal - Integumentary Integumentary: Present: clear, warm, dry - Musculoskeletal Musculoskeletal: gait normal, strength equal bilaterally - Psychiatric Psychiatric: no appropriate mood/affect, no intact judgment & insight, no memory intact, cooperative - Neurologic Neurologic: CNII-XII intact, no focal deficits, moves all extremities Results - Labs CBC & Chem 7: 12/23/18 09:20 12/23/18 09:20 Labs: Abnormal lab results 12/23/18 12/23/18 12/23/18 Range/Units 09:20 09:20 09:20 RBC 2.72 L (3.65-5.03) M/mm3 Hgb 8.8 L (10.1-14.3) gm/dl Hct 26.9 L (30.3-42.9) % MCV 99 H (79-97) fl MCH 33 H (28-32) pg RDW 19.8 H (13.2-15.2) % Plt Count 107 L (140-440) K/mm3 Dickson % (Auto) 10.3 H (0.0-7.3) % Lymph # 0.8 L (1.2-5.4) K/mm3 Seg Neutrophils % 74.3 H (40.0-70.0) % APTT > 240.0 H* (24.2-36.6) Sec. Sodium 136 L (137-145) mmol/L Potassium 7.3 H* (3.6-5.0) mmol/L Chloride 96.4 L (98-107) mmol/L Carbon Dioxide 17 L (22-30) mmol/L BUN 125 H (7-17) mg/dL Creatinine 18.1 H (0.7-1.2) mg/dL Glucose 113 H (65-100) mg/dL Calcium 7.7 L (8.4-10.2) mg/dL Assessment and Plan - Patient Problems (1) ESRD needing dialysis Current Visit: Yes Status: Acute Plan to address problem: Nephrology consulted in ED, dialysis as per renal team, monitor uop q shift, avoid nephrotoxic agents. (2) Hyperkalemia Current Visit: Yes Status: Acute Plan to address problem: IV Calcium gluconate, Kayexelate, serial bmp, urgent dialysis, No EKG changes, remote telemetry (3) Acidosis Current Visit: Yes Status: Acute Plan to address problem: IV bicarbonate therapy, repeat bmp in am. (4) Down syndrome, unspecified Current Visit: Yes Status: Acute Plan to address problem: supportive care, (5) Thrombosis of arteriovenous graft Current Visit: Yes Status: Acute Qualifiers: Encounter type: initial encounter Qualified Code(s): T82.868A - Thrombosis due to vascular prosthetic devices, implants and grafts, initial encounter Plan to address problem: Vascular Surgery/IR notified, Pending surgical intervention. (6) GERD (gastroesophageal reflux disease) Current Visit: No Status: Acute Qualifiers: Esophagitis presence: without esophagitis Qualified Code(s): K21.9 - Gastro-esophageal reflux disease without esophagitis Plan to address problem: PPI therapy, supportive care. (7) Hypocalcemia Current Visit: No Status: Acute Plan to address problem: Calcium gluconate, repeat bmp, (8) DVT prophylaxis Current Visit: No Status: Acute Plan to address problem: SCD to BLE while in bed, prophylactic heparin
[2018-12-23] MEDS ORDERED: PROVENTIL IH PRN (13:39)
[2018-12-23] MEDS ORDERED: ZOFRAN IV PRN (13:39)
[2018-12-23] MEDS ORDERED: SODIUM CHLORIDE FLUSH SYRINGE 10 ML IV PRN (13:39)
[2018-12-23] MEDS ORDERED: TYLENOL PO PRN (13:39)
--- NOTE | 2018-12-23 13:51 | Event Note ---
Date: 12/23/[address] Lin, in the ED, about patient with clotted access. Made her aware that this was a current patient of [facility]. She stated that she was informed they were in procedures and Dr Jiménez had performed a procedure on the patient in July. Informed her that Dr. Jiménez was still employed by [employer] in July. She said she would follow up with [employer].
[2018-12-23] MEDS ORDERED: CALCIUM CHLORIDE 1,000 MG in NACL 0.9% 100 ML IV ONE (14:02)
--- NOTE | 2018-12-23 14:16 | Consultation ---
History of Present Illness - History of Present Illness 48-year-old lady with medical history of cognitive disability, hypertension, diabetes mellitus type 2, end-stage renal disease has a right arm clotted AVG on hemodialysis Saturday at [facility] presents with complaint of inability to dialyze due to clotted AV access left. The last full dialysis was . She has no shortness of breath also denies any fevers or chills there is no associated Any Nausea Vomiting. Access was supposed to have been DEclotted yesterday however this was not done. Her last significant for elevated potassium Past History Past Medical History: diabetes, ESRD, GERD, hypertension Past Surgical History: cataract removal, Other (AV Fistula, ) Social history: single. denies: smoking, alcohol abuse, prescription drug abuse Family history: diabetes, hypertension Medications and Allergies Allergies Allergy/AdvReac Type Severity Reaction Status Date / Time fluconazole [From Diflucan] Allergy Swelling Verified 05/23/17 10:25 Home Medications Medication Instructions Recorded Confirmed Last Taken Type Carvedilol [Coreg] 12.5 mg PO BID 05/26/15 12/23/18 12/22/18 History Insulin Detemir [Levemir VIAL] 30 units SUB-Q QHS 05/26/15 12/23/18 12/23/18 History amLODIPine [Norvasc] 10 mg PO DAILY 05/26/15 12/23/18 12/22/18 History B Complex 11/Folic/C/Biot/Zinc 1 each PO DAILY 07/16/16 12/23/18 12/22/18 History [Dialyvite with Zinc Tablet] Calcium Acetate [Phoslo] 667 mg PO AC 07/09/18 12/23/18 12/23/18 History Sodium Bicarbonate 2 tab PO DAILY 07/09/18 12/23/18 12/22/18 History Active Meds: Active Medications Acetaminophen (Tylenol) 650 mg PO Q4H PRN PRN Reason: Pain MILD(1-3)/Fever >100.5/RUBIO Albuterol (Proventil) 2.5 mg IH Q4HRT PRN PRN Reason: Shortness Of Breath Amlodipine Besylate (Norvasc) 10 mg PO DAILY [facility] Calcium Acetate (Phoslo) 667 mg PO AC [facility] Carvedilol (Coreg) 12.5 mg PO BID [facility] Calcium Chloride 1,000 mg/ (Sodium Chloride) 110 mls @ 660 mls/hr IV ONCE ONE Stop: 12/23/18 14:11 Multivit/Ca Carb/B Cmplx/FA/Prenat (Renal Caps) 1 cap PO QDAY [facility] Ondansetron HCl (Zofran) 4 mg IV Q8H PRN PRN Reason: Nausea And Vomiting Sodium Bicarbonate (Sodium Bicarbonate) mg PO DAILY [facility] Sodium Chloride (Sodium Chloride Flush Syringe 10 Ml) 10 ml IV BID [facility] Sodium Chloride (Sodium Chloride Flush Syringe 10 Ml) 10 ml IV PRN PRN PRN Reason: LINE FLUSH Exam - Vital Signs Vital signs: Vital Signs Temp Pulse Resp BP Pulse Ox 98 F 80 16 116/67 99 12/23/18 08:51 12/23/18 08:51 12/23/18 08:51 12/23/18 08:51 12/23/18 08:51 - General Appearance General appearance: well-developed, well-nourished, obese EENT: ATNC, PERRL, mucous membranes moist Neck: Present: neck supple Respiratory: Decreased Breath Sounds Heart: regular, S1S2 Gastrointestinal: Present: normal, normoactive bowel sounds Integumentary: no rash Neurologic: confused, CN 3-12 intact, other (awake) Psychiatric: mood/affect appropriate Results - Lab Results 12/23/18 09:20 12/23/18 09:20 Most recent lab results Calcium 7.7 mg/dL (8.4-10.2) L 12/23/18 09:20 Assessment and Plan - Patient Problems (1) ESRD needing dialysis Current Visit: Yes Status: Acute Plan to address problem: End-stage renal disease needing dialysis has clotted AV access patient's primary vascular team is [facility] was consulted on admission however they are not available for ER consults We have consulted the on-call vascular surgeon I have spoken tO the ER physician multiple times who has spoken to the vascular surgeon team We have placed a consult vascular surgeon and I have made attempts to contact the vascular surgery team bail bond agent Case discussed with Dr. Moore , I appreciate his help. Awaiting dialysis access placement (2) Acidosis Current Visit: Yes Status: Acute Plan to address problem: Metabolic acidosis secondary to missed dialysis Will initiate dialysis once dialysis access is placed (3) Hyperkalemia Current Visit: Yes Status: Acute Plan to address problem: Severe hyperkalemia I reviewed EKG with peaked T waves flattened P waves prolonged MI We'll repeat calcium gluconate as well as EKG changes continue to persist Received Kayexalate Received insulin and dextrose however only 5 units of insulin given by the ER Would recommend 10 units of insulin and 50 g dextrose Albuterol nebs We'll initiate dialysis once ACCESS placed (4) Complication of AV dialysis fistula Current Visit: No Status: Acute Qualifiers: Encounter type: initial encounter Qualified Code(s): T82.9XXA - Unspecified complication of cardiac and vascular prosthetic device, implant and graft, initial encounter Plan to address problem: Clotted dialysis access needs dialysis access declotted Vascular surgery has been consulted (5) Anemia due to chronic kidney disease, on chronic dialysis Current Visit: Yes Status: Acute Plan to address problem: Moderate anemia hemoglobin 8.3 g/dl (Monitor CBC and anemia panel will give epogen
[2018-12-23] MEDS ORDERED: VERSED ONE (15:26)
[2018-12-23] MEDS ORDERED: SUBLIMAZE ONE (15:26)
[2018-12-23] MEDS ORDERED: HEPARIN/NS 5000 UNIT/500ML(CATH LAB) 500 ML IR ONE (15:27)
[2018-12-23] MEDS ORDERED: XYLOCAINE 1%/ EPI 1:100,000 INFILTRATI ONE (15:27)
[2018-12-23] MEDS ORDERED: NACL 0.9% 250ML 250 ML ONE (15:27)
[2018-12-23] MEDS: HEPARIN 10,000 UNITS/10 ML ONE ×2 (16:00→16:01)
--- NOTE | 2018-12-23 16:09 | Operative Report ---
Operative Report Operative Report: Exam: Ultrasound and fluoroscopic guided placement of Vas-Cath Clinical indication: Patient with a history of end-stage renal disease and thrombosed right upper extremity graft. Vas-Cath needed for hyperkalemia Date: 12/23/2018 Procedure: Following an explanation of the risks, benefits and alternatives; rebecca hou informed consent was obtained. The patient was brought to the angiographic suite and placed in supine position on the examination table. Initial ultrasound evaluation of right groin demonstrated a widely patent right common femoral vein. The patient's right groin was prepped and draped in the usual sterile fashion. 1% lidocaine was used for anesthesia. The right common femoral vein was cannulated with a 7 cm 18-gauge needle. A 0.035 guidewire was advanced centrally. The needle was removed and following serial dilation over the guidewire under fluoroscopy, a 15 Malaysian 30 cm dialysis catheter was placed over the guidewire under fluoroscopy and advanced centrally. The guidewire was removed. The catheter flushes and aspirates easily and was then locked with her appropriate volumes of heparin. Catheter was securely fastened to the skin surface using 2-0 Ethilon suture and a sterile dressing applied. The patient tolerated the procedure well. There were no immediate post pr ocedure palpitations. A minimal amount of sedation was utilized secondary to the patient's mental status. Continuous cardiopulmonary monitoring was utilized. Impression: Ultrasound fluoroscopic guided placement of Vas-Cath via the right common femoral vein.
[2018-12-23] MEDS ORDERED: NACL 0.9 (PRIMING MACHINE ONLY DIALYSIS) MC ONE (18:46)
[2018-12-23 21:33] LABS: Hepatitis B Surface Antigen Non-Reactive (Negative); Hepatitis C Virus Antibody Non-Reactive (NonReactive)
[2018-12-23] MEDS: SODIUM CHLORIDE FLUSH SYRINGE 10 ML IV SCH (22:34)
[2018-12-24] MEDS: COREG PO SCH ×3 (00:06→21:31)
[2018-12-24 06:38] LABS: Albumin 3.4 g/dL (3.9-5); Calcium 7.6 mg/dL (8.4-10.2)
[2018-12-24] MEDS: PHOSLO PO SCH ×3 (07:30→11:44)
[2018-12-24] MEDS ORDERED: SODIUM BICARBONATE PO SCH (10:00)
[2018-12-24] MEDS ORDERED: NON-FORMULARY (B Complex 11/Folic/C/Biot/Zinc [Dialyvite With Zinc Tablet] 1 EACH) PO SCH (10:00)
[2018-12-24] MEDS: NORVASC PO SCH (10:00)
--- NOTE | 2018-12-24 10:24 | Progress Note ---
Assessment and Plan Patient will need to be scheduled for thrombectomy of her right upper arm AV graft. Patient's been previously treated by other physicians with unknown interventions. We will schedule patient for thrombectomy tomorrow. Subjective Date of service: 12/24/18 Principal diagnosis: Malfunctioning dialysis access Interval history: Patient with a history of right upper extremity access with a combination of graft and hero graft. A vascular lab study was ordered. There appears to have been interval placement of a stent at the anastomosis between graft and hero graft. The graft is completely thrombosed. Patient currently receiving dialysis through a right common femoral vein Vas-Cath. Objective - Constitutional Vitals: Vital Signs - 12hr 12/24/18 12/24/18 00:06 07:00 Temperature 99.1 F Pulse Rate 79 86 Respiratory 20 Rate Blood Pressure 130/71 110/43 O2 Sat by Pulse 97 Oximetry General appearance: Present: no acute distress - EENT Eyes: EOM intact ENT: hearing intact - Neck Neck: supple, normal ROM - Respiratory Respiratory effort: normal Extremities: abnormal - Gastrointestinal General gastrointestinal: Present: deferred Rectal Exam: deferred - Genitourinary Female genitourinary: deferred - Psychiatric Psychiatric: cooperative - Labs CBC & Chem 7: 12/23/18 09:20 12/24/18 05:39 Labs: Abnormal lab results 12/23/18 12/23/18 12/24/18 Range/Units 22:34 23:02 05:39 Potassium 3.4 L D (3.6-5.0) mmol/L Chloride 96.4 L 96.8 L (98-107) mmol/L BUN 33 H 35 H (7-17) mg/dL Creatinine 7.1 H D 8.3 H (0.7-1.2) mg/dL Glucose 114 H (65-100) mg/dL POC Glucose 140 H (70-105) Calcium 8.0 L 7.6 L (8.4-10.2) mg/dL Albumin 3.4 L (3.9-5) g/dL Medications & Allergies - Medications Allergies/Adverse Reactions: Allergies fluconazole [From Diflucan] Allergy (Verified 05/23/17 10:25) Swelling Home Medications: Home Medications Medication Instructions Recorded Confirmed Last Taken Type Carvedilol [Coreg] 12.5 mg PO BID 05/26/15 12/23/18 12/22/18 History Insulin Detemir [Levemir VIAL] 30 units SUB-Q QHS 05/26/15 12/23/18 12/23/18 History amLODIPine [Norvasc] 10 mg PO DAILY 05/26/15 12/23/18 12/22/18 History B Complex 11/Folic/C/Biot/Zinc 1 each PO DAILY 07/16/16 12/23/18 12/22/18 History [Dialyvite with Zinc Tablet] Calcium Acetate [Phoslo] 667 mg PO AC 07/09/18 12/23/18 12/23/18 History Sodium Bicarbonate 2 tab PO DAILY 07/09/18 12/23/18 12/22/18 History Active Medications: Generic Name Dose Route Start Last Admin Trade Name Freq PRN Reason Stop Dose Admin Acetaminophen 650 mg 12/23/18 13:39 Tylenol PO Q4H PRN Pain MILD(1-3)/Fever >100.5/RUBIO Albuterol 2.5 mg 12/23/18 13:39 Proventil IH Q4HRT PRN Shortness Of Breath Amlodipine Besylate 10 mg 12/24/18 10:00 Norvasc PO DAILY [facility] Calcium Acetate 667 mg 12/23/18 16:30 Phoslo PO AC [facility] Carvedilol 12.5 mg 12/23/18 22:00 12/24/18 00:06 Coreg PO 12.5 mg BID SAMM Administration Multivit/Ca Carb/B Cmplx/FA/Prenat 1 cap 12/24/18 10:00 Renal Caps PO QDAY [facility] Ondansetron HCl 4 mg 12/23/18 13:39 Zofran IV Q8H PRN Nausea And Vomiting Sodium Chloride 10 ml 12/23/18 22:00 12/23/18 22:34 Sodium Chloride Flush Syringe 10 Ml IV 10 ml BID SAMM Administration Sodium Chloride 10 ml 12/23/18 13:39 Sodium Chloride Flush Syringe 10 Ml IV PRN PRN LINE FLUSH
--- NOTE | 2018-12-24 11:40 | Vascular Lab Report ---
ARTERIAL DUPLEX RIGHT UPPER EXTREMITY INDICATION / CLINICAL INFORMATION: Evaluate RUE graft. Right upper extremity AV graft. COMPARISON: None available. FINDINGS: Right radial artery: 67 cm/s with antegrade flow. Right ulnar artery: 67 cm/s with antegrade flow. Right brachial artery (inflow): 89 cm/s. Right AV graft appears occluded with no visible flow and no color Doppler flow. There is a small amou nt of hypoechoic collection surrounding the graft which may represent hematoma. IMPRESSION: 1. Occluded right upper extremity AV graft with possible surrounding hematoma. Signer Name: Scott Merida MD Signed: 12/24/2018 11:35 AM Workstation Name: [id number]
[2018-12-24] MEDS: Renal Caps PO SCH (11:43)
[2018-12-24] MEDS: SODIUM CHLORIDE FLUSH SYRINGE 10 ML IV SCH ×2 (11:45→21:34)
--- NOTE | 2018-12-24 15:04 | Progress Note ---
Assessment and Plan - Patient Problems (1) ESRD needing dialysis Current Visit: Yes Status: Acute Plan to address problem: End-stage renal disease needing dialysis has clotted AV access appreciate Vascular surgery team Dr. Jiménez for placement of Right femoral vein catheter Patient is scheduled for Declot procedure in am . (2) Acidosis Current Visit: Yes Status: Acute Plan to address problem: Metabolic acidosis secondary to missed dialysis continue dialysis (3) Hyperkalemia Current Visit: Yes Status: Acute Plan to address problem: Severe hyperkalemia now resolved. I reviewed EKG with peaked T waves flattened P waves prolonged AL Received calcium gluconate as well as EKG changes continue to persist Received Kayexalate continue Dialysis. (4) Complication of AV dialysis fistula Current Visit: No Status: Acute Qualifiers: Encounter type: initial encounter Qualified Code(s): T82.9XXA - Unspecified complication of cardiac and vascular prosthetic device, implant and graft, initial encounter Plan to address problem: Clotted dialysis access needs dialysis access declotted s/p right femoral vas cath for dialysis I reviewed venous ultrasound with clotted AV Graft with small hematoma (recent infiltration on dialysis ) Plan for Declot procedure. (5) Anemia due to chronic kidney disease, on chronic dialysis Current Visit: Yes Status: Acute Plan to address problem: Moderate anemia hemoglobin 8.3 g/dl (Monitor CBC and anemia panel will give epogen [id number] . Subjective Principal diagnosis: Malfunctioning dialysis access Interval history: 48-year-old lady with medical history of cognitive disability, hypertension, d iabetes mellitus type 2, end-stage renal disease has a right arm clotted AVG on hemodialysis Saturday at [facility] presents with complaint of inability to dialyze due to clotted AV access left. The last full dialysis was . She has no shortness of breath also denies any fevers or chills there is no associated Any Nausea Vomiting. Access was supposed to have been DEclotted yesterday however this was not done. Patient seen today has right femoral vein cath clotted AV Graft no shortness of breath, no edema no fevers or chills. Objective - Vital Signs Vital signs: Vital Signs - 12hr 07/24/19 07:00 Temperature 99.1 F Pulse Rate 86 Respiratory 20 Rate Blood Pressure 110/43 O2 Sat by Pulse 97 Oximetry - General Appearance General appearance: well-developed, well-nourished EENT: ATNC, PERRL, mucous membranes moist Neck: no JVD Respiratory: Present: Clear to Ascultation Cardiology: regular, S1S2 Gastrointestinal: normal, normoactive bowel sounds Integumentary: no rash Neurologic: alert and oriented x3 Psychiatric: mood/affect appropriate - Lab 12/23/18 09:20 12/24/18 05:39 Most recent lab results Calcium 7.6 mg/dL (8.4-10.2) L 12/24/18 05:39 Medications & Allergies - Medications Allergies/Adverse Reactions: Allergies fluconazole [From Diflucan] Allergy (Verified 05/23/17 10:25) Swelling Home Medications: Home Medications Medication Instructions Recorded Confirmed Last Taken Type Carvedilol [Coreg] 12.5 mg PO BID 05/26/15 12/23/18 12/22/18 History Insulin Detemir [Levemir VIAL] 30 units SUB-Q QHS 05/26/15 12/23/18 12/23/18 History amLODIPine [Norvasc] 10 mg PO DAILY 05/26/15 12/23/18 12/22/18 History B Complex 11/Folic/C/Biot/Zinc 1 each PO DAILY 07/16/16 12/23/18 12/22/18 History [Dialyvite with Zinc Tablet] Calcium Acetate [Phoslo] 667 mg PO AC 07/09/18 12/23/18 12/23/18 History Sodium Bicarbonate 2 tab PO DAILY 07/09/18 12/23/18 12/22/18 History Active Medications: Generic Name Dose Route Start Last Admin Trade Name Collin PRN Reason Stop Dose Admin Acetaminophen 650 mg 12/23/18 13:39 12/24/18 11:41 Tylenol PO 650 mg Q4H PRN Administration Pain MILD(1-3)/Fever >100.5/RUBIO Albuterol 2.5 mg 12/23/18 13:39 Proventil IH Q4HRT PRN Shortness Of Breath Amlodipine Besylate 10 mg 12/24/18 10:00 Norvasc PO DAILY [facility] Calcium Acetate 667 mg 12/23/18 16:30 12/24/18 11:44 Phoslo PO 667 mg AC [facility] Administration Carvedilol 12.5 mg 12/23/18 22:00 12/24/18 11:43 Coreg PO 12.5 mg BID SAMM Administration Multivit/Ca Carb/B Cmplx/FA/Prenat 1 cap 12/24/18 10:00 12/24/18 11:43 Renal Caps PO 1 cap QDAY SAMM Administration Ondansetron HCl 4 mg 12/23/18 13:39 12/24/18 11:41 Zofran IV 4 mg Q8H PRN Administration Nausea And Vomiting Sodium Chloride 10 ml 12/23/18 22:00 12/24/18 11:45 Sodium Chloride Flush Syringe 10 Ml IV 10 ml BID SAMM Administration Sodium Chloride 10 ml 12/23/18 13:39 Sodium Chloride Flush Syringe 10 Ml IV PRN PRN LINE FLUSH
[2018-12-24] MEDS ORDERED: PROCRIT SUB-Q ONE (16:00)
--- NOTE | 2018-12-24 16:13 | Progress Note ---
Assessment and Plan / ESRD needing dialysis Nephrology consulted in ED, dialysis as per renal team, vascath placed yesterday by vascular / Hyperkalemia Improved, cont to monitor s/p IV Calcium gluconate, Kayexelate, and emergent HD / metabolic Acidosis to ESRD IV bicarbonate therapy, repeat bmp in am. / Down syndrome, unspecified supportive care, / Thrombosis of arteriovenous graft Vascular Surgery/IR notified, Pending surgical intervention tomorrow. / GERD (gastroesophageal reflux disease) PPI therapy, supportive care. / Hypocalcemia Calcium gluconate, monitor bmp, /Anemia due to chronic kidney disease, on chronic dialysis Moderate anemia hemoglobin 8.3 g/dl, monitor h/h Epogen [id number] with HD / DVT prophylaxis SCD to BLE while in bed, prophylactic heparin Brief history: 48-year-old lady with medical history of cognitive disability, hypertension, diabetes mellitus type 2, end-stage renal disease has a right arm clotted AVG on hemodialysis Saturday at [facility] presents with complaint of inability to dialyze due to clotted AV access left. The last full dialysis was . She has no shortness of breath also denies any fevers or chills there is no associated Any Nausea Vomiting. Vascath placed by vascular, plan for declot tomorrow Physical exam: General appearance: well-developed, well-nourished, obese EENT: ATNC, PERRL, mucous membranes moist Neck: Present: neck supple Respiratory: Decreased Breath Sounds Heart: regular, S1S2 Gastrointestinal: Present: normal, normoactive bowel sounds Integumentary: no rash Neurologic: CN 3-12 intact, other (awake) Psychiatric: mood/affect appropriate Subjective Date of service: 12/24/18 Principal diagnosis: Malfunctioning dialysis access Interval history: Patient seen and examined. Medical records and medication list reviewed. No acute event overnight noted by the RN. Patient denies any chest pain or difficulty breathing. Patient is tolerating diet. Discussed plan of care at bedside with patient and her sister. Objective - Constitutional Vitals: Vital Signs - 12hr 12/24/18 12/24/18 07:00 11:08 Temperature 99.1 F 98.3 F Pulse Rate 86 80 Respiratory 20 20 Rate Blood Pressure 110/43 91/57 O2 Sat by Pulse 97 100 Oximetry - Labs CBC & Chem 7: 12/23/18 09:20 12/25/18 11:35 Labs: Abnormal lab results 12/23/18 12/23/18 12/24/18 Range/Units 22:34 23:02 05:39 Potassium 3.4 L D (3.6-5.0) mmol/L Chloride 96.4 L 96.8 L (98-107) mmol/L BUN 33 H 35 H (7-17) mg/dL Creatinine 7.1 H D 8.3 H (0.7-1.2) mg/dL Glucose 114 H (65-100) mg/dL POC Glucose 140 H (70-105) Calcium 8.0 L 7.6 L (8.4-10.2) mg/dL Albumin 3.4 L (3.9-5) g/dL 12/24/18 Range/Units 12:02 Potassium (3.6-5.0) mmol/L Chloride (98-107) mmol/L BUN (7-17) mg/dL Creatinine (0.7-1.2) mg/dL Glucose (65-100) mg/dL POC Glucose 172 H (70-105) Calcium (8.4-10.2) mg/dL Albumin (3.9-5) g/dL
[2018-12-25] MEDS: PHOSLO PO SCH ×3 (07:30→16:30)
--- NOTE | 2018-12-25 09:59 | Progress Note ---
Assessment and Plan - Patient Problems (1) ESRD needing dialysis Current Visit: Yes Status: Acute Plan to address problem: End-stage renal disease needing dialysis has clotted AV access appreciate Vascular surgery team Dr. Jiménez for placement of Right femoral vein catheter Patient is scheduled for Declot procedure today . Will need dialysis today. (2) Acidosis Current Visit: Yes Status: Acute Plan to address problem: Metabolic acidosis secondary to missed dialysis:Resolved. continue dialysis (3) Hyperkalemia Current Visit: Yes Status: Acute Plan to address problem: Severe hyperkalemia now resolved. I reviewed EKG with peaked T waves flattened P waves prolonged RI Received calcium gluconate as well as EKG changes continue to persist Received Kayexalate continue Dialysis. (4) Complication of AV dialysis fistula Current Visit: No Status: Acute Qualifiers: Encounter type: initial encounter Qualified Code(s): T82.9XXA - Unspecified complication of cardiac and vascular prosthetic device, implant and graft, initial encounter Plan to address problem: Clotted dialysis access needs dialysis access declotted s/p right femoral vas cath for dialysis I reviewed venous ultrasound with clotted AV Graft with small hematoma (recent infiltration on dialysis ) Plan for Declot procedure. (5) Anemia due to chronic kidney disease, on chronic dialysis Current Visit: Yes Status: Acute Plan to address problem: Moderate anemia hemoglobin 8.3 g/dl (Monitor CBC and anemia panel will give epogen [id number] . Subjective Principal diagnosis: Malfunctioning dialysis access Interval history: 48-year-old lady with medical history of cognitive disability, hypertension, diabetes mellitus type 2, end-stage renal disease has a right arm clotted AVG on hemodialysis Saturday at [facility] presents with complaint of inability to dialyze due to clotted AV access left. The last full dialysis was . She has no shortness of breath also denies any fevers or chills there is no associated Any Nausea Vomiting. Access was supposed to have been DEclotted yesterday however this was not done. Patient seen today has right femoral vein cath clotted AV Graft Plan for Declot procedure today Denies any shortness of breath, no edema c/o nausea. Objective - Vital Signs Vital signs: Vital Signs - 12hr 12/24/18 12/25/18 12/25/18 22:09 04:55 05:01 Temperature 98.9 F 98.2 F 97.4 F L Pulse Rate 87 83 91 H Respiratory 16 16 20 Rate Blood Pressure 97/40 91/38 113/70 O2 Sat by Pulse 97 95 98 Oximetry - General Appearance General appearance: well-developed, well-nourished, obese EENT: ATNC, PERRL Neck: no JVD Respiratory: Present: Clear to Ascultation Cardiology: regular, S1S2 Gastrointestinal: normal, normoactive bowel sounds Neurologic: alert and oriented x3, CN 3-12 intact Psychiatric: mood/affect appropriate - Lab 12/23/18 09:20 12/24/18 05:39 Most recent lab results Calcium 7.6 mg/dL (8.4-10.2) L 12/24/18 05:39 - Imaging Chest x-ray: image reviewed (I reviewed CXR without overt edema. ) CT scan - abdomen: image reviewed Medications & Allergies - Medications Allergies/Adverse Reactions: Allergies fluconazole [From Diflucan] Allergy (Verified 05/23/17 10:25) Swelling Home Medications: Home Medications Medication Instructions Recorded Confirmed Last Taken Type Carvedilol [Coreg] 12.5 mg PO BID 05/26/15 12/23/18 12/22/18 History Insulin Detemir [Levemir VIAL] 30 units SUB-Q QHS 05/26/15 12/23/18 12/23/18 History amLODIPine [Norvasc] 10 mg PO DAILY 05/26/15 12/23/18 12/22/18 History B Complex 11/Folic/C/Biot/Zinc 1 each PO DAILY 07/16/16 12/23/18 12/22/18 History [Dialyvite with Zinc Tablet] Calcium Acetate [Phoslo] 667 mg PO AC 07/09/18 12/23/18 12/23/18 History Sodium Bicarbonate 2 tab PO DAILY 07/09/18 12/23/18 12/22/18 History Active Medications: Generic Name Dose Route Start Last Admin Trade Name Freq PRN Reason Stop Dose Admin Acetaminophen 650 mg 12/23/18 13:39 12/24/18 11:41 Tylenol PO 650 mg Q4H PRN Administration Pain MILD(1-3)/Fever >100.5/RUBIO Albuterol 2.5 mg 12/23/18 13:39 Proventil IH Q4HRT PRN Shortness Of Breath Amlodipine Besylate 10 mg 12/24/18 10:00 12/24/18 10:00 Norvasc PO Not Given DAILY [facility] Calcium Acetate 667 mg 12/23/18 16:30 12/25/18 07:30 Phoslo PO Not Given AC [facility] Carvedilol 12.5 mg 12/23/18 22:00 12/24/18 21:31 Coreg PO Not Given BID [facility] Multivit/Ca Carb/B Cmplx/FA/Prenat 1 cap 12/24/18 10:00 12/24/18 11:43 Renal Caps PO 1 cap QDAY [facility] Administration Ondansetron HCl 4 mg 12/23/18 13:39 12/24/18 11:41 Zofran IV 4 mg Q8H PRN Administration Nausea And Vomiting Sodium Chloride 10 ml 12/23/18 22:00 12/24/18 21:34 Sodium Chloride Flush Syringe 10 Ml IV 10 ml BID SAMM Administration Sodium Chloride 10 ml 12/23/18 13:39 Sodium Chloride Flush Syringe 10 Ml IV PRN PRN LINE FLUSH
[2018-12-25] MEDS: SODIUM CHLORIDE FLUSH SYRINGE 10 ML IV SCH ×2 (10:00→22:49)
[2018-12-25] MEDS: HALFPRIN EC PO SCH (10:00)
[2018-12-25] MEDS: Renal Caps PO SCH (10:00)
[2018-12-25] MEDS: COREG PO SCH ×2 (10:00→22:42)
[2018-12-25] MEDS: NORVASC PO SCH (10:00)
[2018-12-25] MEDS ORDERED: HEPARIN 10,000 UNITS/10 ML ONE (12:11)
[2018-12-25] MEDS ORDERED: HEPARIN/NS 5000 UNIT/500ML(CATH LAB) 500 ML IR ONE ×2 (12:11→13:11)
[2018-12-25] MEDS ORDERED: NACL 0.9% 500 ML 500 ML ONE (12:33)
[2018-12-25 12:39] LABS: Calcium 7.1 mg/dL (8.4-10.2)
[2018-12-25] MEDS: SUBLIMAZE ONE ×6 (12:40→13:46)
[2018-12-25] MEDS: VERSED ONE ×6 (12:40→13:46)
[2018-12-25] MEDS: XYLOCAINE 2% INFILTRATI ONE ×2 (12:42→13:19)
[2018-12-25] MEDS ORDERED: CATHFLO ONE (12:50)
[2018-12-25] MEDS ORDERED: VERSED ONE (14:10)
[2018-12-25] MEDS ORDERED: SUBLIMAZE ONE (14:10)
--- NOTE | 2018-12-25 14:32 | Operative Report ---
Operative Report Operative Report: EXAM: 1. Ultrasound guided access of the right arm AV HERO graft towards the central veins 2. Fistulogram 3. Infusion of 2 mg of TPA throughout the hero graft and AV graft 4. Angioplasty of the hero graft and AV graft with an 8 mm angioplasty balloon 5. Trerotola Mechanical thrombectomy of the AV graft portion of the AV graft- HERO graft 6. Rachel thrombectomy of the hero graft 7. Angioplasty at the AV graft/Hero graft connector with a 8 mm x 4 cm Casey and Conquest 8. Ultrasound guided access of the right arm AV HERO graft towards the arterial inflow 9. Selection of the brachial artery in a retrograde fashion and antegrade fashion with angiography of the right upper extremity 10. Angioplasty of the brachial artery with a 5 mm x 80 mm iNPACT DCB 11. Secondary thrombectomy of the distal brachial artery by backbleeding technique 12. Stenting of the distal AV graft at the HERO connector with an 8 mm x 5 cm Viabahn covered stent, post dilated with an 8 mm angioplasty balloon INDICATION: THROMBOSED RIGHT ARM AV GRAFT-HERO WITH END-STAGE RENAL DISEASE. DATE: 12/25/18 MEDICATIONS: Please refer to nursing documentation for complete list of medications and heparin administration. VERSED AND FENTANYL TITRATED TO MODERATE SEDATION. THE PATIENT WAS MONITORED UNDER CONTINUOUS CARDIOPULMONARY MONITORING THROUGHOUT THE CASE. COMPLICATIONS: NONE IMMEDIATE EXTRUSION MANAGER: MIK BETANCOURT MD PROCEDURE: The procedure was discussed with the patient and the risks, benefits, and alternatives were discussed with the patient. Informed consent was obtained. The patient was transported into the angiography suite in stable condition and placed on the angiographic table. The right arm was assessed under real-time ultrasound which demonstrated a thrombosed right arm AV graft. The patient was prepped and draped in a sterile fashion. Lidocaine was used to anesthetize the skin. Under ultrasound guidance, the AV graft was punctured with the needle pointing towards the HERO limb. 0.018 inch wire was advanced through the needle and this was exchanged for a transitional dilator. The inner dilator and wire were removed and a 0.035 inch Jacques wire was advanced through the transitional dilator. The dilator was exchanged for a 7 Greenlandic short sheath. Angled catheter was advanced over the wire and the wire was advanced into the inferior vena cava under fluoroscopic guidance. Then the wire was removed and the Angled catheter was used to perform a pullback venogram. Digital subtraction venography was performed in the right atrium which was patent. The HERO graft was occluded throughout its course from the right atrium throughout the graft. 2 mg of TPA were infused through the length of the clot to the sheath as the arterial anastomosis was manually compressed. Catheter was exchanged for an 8 mm x 8 cm balloon and the HERO graft and AV graft was sequentially venoplasty. Trerotola thrombectomy device was used multiple times through the AV graft. Angled catheter and Jacques wire were negotiated into the inferior vena cava. The rachel balloon was used to sweep from the sheath to the central veins. The sheath was then aspirated and the graft became pulsatile. I then aspirated blood and gently injected contrast which moved forward and was not static. I then perform digital subtraction angiography which demonstrated at the AV graft was patent except for the distal portion of the AV graft at the connector which was severely narrowed. Hero graft was patent to the right atrium. The distal portion of the AV graft was then treated with an 8 x 4 mm Casey and subsequently conquest balloon. This area was treated with focal charcoal thrombectomy. Digital subtraction angiography demonstrated 30% residual narrowing which I decided to leave for now. The arm was then punctured towards the arterial anastomosis under ultrasound guidance. 0.018 inch wire was advanced through the needle and exchanged for transitional dilator. The inner dilator and wire were removed and a 0.035 inch Jacques wire was advanced to the transitional dilator. The dilator was exchanged for 6 Greenlandic short sheath. The angled catheter was advanced over the 0.035 wire and the wire was advanced into the morongo brachial artery in a retrograde fashion after first selecting the distal brachial artery and performing digital subtraction angiography. Digital subtraction angiography was performed which demonstrated an occlusive thrombus in the distal brachial artery which was short segment in nature with collaterals supplying flow distal to it suggesting this thrombus is more chronic than acute. The proximal brachial artery which was distant to the anastomosis had a severe 80% narrowing associated with it extended over 5 cm. There was 30% narrowing at the arterial anastomosis. 5 mm x 80 mm iNPACT DCB was then advanced over the wire and used to perform angioplasty of the proximal brachial artery at nominal pressure for 3 minutes. Digital subtraction angiography was then performed demonstrating less than 20% residual narrowing of the brachial artery with less than 10% residual narrowing of the arterial anastomosis. The distal brachial artery thrombus was still present. I then performed a secondary thrombectomy by inflating Rachel in the proximal brachial artery, distal to the collaterals, and performed manual compression of the forearm by pushing from the wrist to the antecubital fossa multiple times. After performing this a few times, digital subtraction angiography was performed demonstrating some thrombus stuck in the proximal graft. Rachel thrombectomy was then performed to the sheath and the secondary thrombectomy technique was repeated. Rachel thrombectomy was then performed to the sheath and secondary thrombectomy technique was repeated. Digital subtraction angiography was performed demonstrating patency of the brachial artery proximal and distal to the anastomosis and within the proximal graft. The radial artery was patent, the interosseous artery was patent, and the ulnar artery was patent. Digital subtraction angiography was then performed in the sheath demonstrating some narrowing in the distal AV graft and some extravasation around the AV graft/HERO graft connector which was new from previous. There was also a few focal areas of thrombus from the backbleeding technique. Rachel catheter was inflated and use to sweep AV graft and afterwards a 8 mm angioplasty balloon was used to balloon tamponade on the area of extravasation. Digital subtraction angiography was performed demonstrating no further thrombus in the graft, but a mild amount of extravasation around the AV graft/HERO graft connector. I then deployed a 8 mm x 5 cm Viabahn stent graft over the AV graft/HERO graft connector and post dilated this with an 8 mm angioplasty balloon. Digital subtraction angiography was performed demonstrating patency throughout the graft, no residual narrowing, and patency of the hero graft. At this point, all the wires were removed. 3-0 Vicryl sutures were used to close the fistula access sites. Dermabond was applied. Pressure was held until hemostasis was achieved. The patient was then transferred to the outpatient recovery area. FINDINGS: Please see the procedure note for the findings. IMPRESSION: 1. Successful pharmacomechanical thrombectomy of the thrombosed right arm AV graft with peripheral dialysis access stenting. 2. Successful central dialysis access angioplasty. 3. Successful angioplasty of the right brachial artery with angiography of the right upper extremity and selection of the brachial artery. 4. Successful secondary thrombectomy of the right arm distal brachial artery.
--- NOTE | 2018-12-25 14:55 | Event Note ---
Date: 12/25/18 Successful AV graft thrombectomy, angioplasty, stenting with angioplasty of the brachial artery and thrombectomy of the right distal brachial artery. Started patient on 81 mg ASA daily. Recommend continuing. After successful dialysis access 1-2 times, can consider vascath removal. CANNOT BE DISCHARGED WITH VASCATH IN PLACE.
--- NOTE | 2018-12-25 15:07 | Progress Note ---
Assessment and Plan / ESRD needing dialysis Nephrology consulted in ED, dialysis as per renal team, vascath placed by vascular for emergent HD on admission If AVF works then vascath will be taken off before discharge / Hyperkalemia cont to monitor, s/p IV Calcium gluconate, Kayexelate, and emergent HD on admission plan for another Hd today / metabolic Acidosis to ESRD follow BMP / Down syndrome, unspecified supportive care, / Thrombosis of arteriovenous graft Vascular Surgery/IR notified, plan for surgical intervention today. / GERD (gastroesophageal reflux disease) PPI therapy, supportive care. / Hypocalcemia Calcium gluconate, monitor bmp, /Anemia due to chronic kidney disease, on chronic dialysis Moderate anemia hemoglobin 8.3 g/dl, monitor h/h Epogen [id number] with HD / DVT prophylaxis SCD to BLE while in bed, prophylactic heparin Brief history: 48-year-old lady with medical history of cognitive disability, hypertension, diabetes mellitus type 2, end-stage renal disease has a right arm clotted AVG on hemodialysis Saturday at [facility] presents with complaint of inability to dialyze due to clotted AV access left. The last full dialysis was . She has no shortness of breath also denies any fevers or chills there is no associated Any Nausea Vomiting. Vascath placed by vascular, plan for declot today. Physical exam: General appearance: well-developed, well-nourished, obese EENT: ATNC, PERRL, mucous membranes moist Neck: Present: neck supple Respiratory: Decreased Breath Sounds Heart: regular, S1S2 Gastrointestinal: Present: normal, normoactive bowel sounds Integumentary: no rash Neurologic: CN 3-12 intact, other (awake) Psychiatric: mood/affect appropriate Subjective Date of service: 12/25/18 Principal diagnosis: Malfunctioning dialysis access Interval history: Patient seen and examined. Medical records and medication list reviewed. No acute event overnight noted by the RN. Patient denies any chest pain or difficulty breathing. Patient is tolerating diet. Discussed plan of care at bedside with patient and her sister. Objective - Constitutional Vitals: Vital Signs - 12hr 12/25/18 12/25/18 12/25/18 04:55 05:01 09:53 Temperature 98.2 F 97.4 F L Pulse Rate 83 91 H Respiratory 16 20 Rate Blood Pressure 91/38 113/70 O2 Sat by Pulse 95 98 97 Oximetry - Labs CBC & Chem 7: 12/23/18 09:20 12/25/18 11:35 Labs: Abnormal lab results 12/24/18 12/24/18 12/25/18 Range/Units 17:21 21:22 07:17 Sodium (137-145) mmol/L Potassium (3.6-5.0) mmol/L Chloride (98-107) mmol/L Carbon Dioxide (22-30) mmol/L BUN (7-17) mg/dL Creatinine (0.7-1.2) mg/dL Glucose (65-100) mg/dL POC Glucose 202 H 189 H 157 H (70-105) Calcium (8.4-10.2) mg/dL 12/25/18 Range/Units 11:35 Sodium 134 L (137-145) mmol/L Potassium 5.7 H D (3.6-5.0) mmol/L Chloride 93.8 L (98-107) mmol/L Carbon Dioxide 18 L D (22-30) mmol/L BUN 54 H (7-17) mg/dL Creatinine 11.0 H (0.7-1.2) mg/dL Glucose 130 H (65-100) mg/dL POC Glucose (70-105) Calcium 7.1 L (8.4-10.2) mg/dL
[2018-12-26] MEDS: PHOSLO PO SCH ×3 (08:00→11:34)
--- NOTE | 2018-12-26 10:11 | Progress Note ---
Assessment and Plan - Patient Problems (1) ESRD needing dialysis Current Visit: Yes Status: Acute Plan to address problem: End-stage renal disease needing dialysis has clotted AV access appreciate Vascular surgery team Dr. Jiménez for placement of Right femoral vein catheter Clotted AVG has been Declotted , patient underwent dialysis via AVG on 12/25 Femoral vas cath has been removed. (2) Acidosis Current Visit: Yes Status: Acute Plan to address problem: Metabolic acidosis secondary to missed dialysis:Resolved. continue dialysis (3) Hyperkalemia Current Visit: Yes Status: Acute Plan to address problem: Severe hyperkalemia now resolved. I reviewed EKG with peaked T waves flattened P waves prolonged MD Received calcium gluconate as well as EKG changes continue to persist Received Kayexalate continue Dialysis. (4) Complication of AV dialysis fistula Current Visit: No Status: Acute Qualifiers: Encounter type: initial encounter Qualified Code(s): T82.9XXA - Unspecified complication of cardiac and vascular prosthetic device, implant and graft, initial encounter Plan to address problem: Clotted dialysis access needs dialysis access declotted s/p right femoral vas cath for dialysis I reviewed venous ultrasound with clotted AV Graft with small hematoma (recent infiltration on dialysis ) s/p Declot procedure AVG with thrill and bruit Femoral Vas cath has been removed. (5) Anemia due to chronic kidney disease, on chronic dialysis Current Visit: Yes Status: Acute Plan to address problem: Moderate anemia hemoglobin 8.8g/dl (Monitor CBC and anemia panel Received. epogen [id number] . Subjective Principal diagnosis: Malfunctioning dialysis access Interval history: 48-year-old lady with medical history of cognitive disability, hypertension, diabetes mellitus type 2, end-stage renal disease has a right arm clotted AVG on hemodialysis Saturday at [facility] presents with complaint of inability to dialyze due to clotted AV access left. The last full dialysis was . She has no shortness of breath also denies any fevers or chills there is no associated Any Nausea Vomiting. Access was supposed to have been DEclotted yesterday however this was not done. Patient seen today s/p Declot procedure successful dialysis with AVG on 12/25 We have removed femoral vascular cath Denies any shortness of breath, no edema Next dialysis on Saturday. Objective - Vital Signs Vital signs: Vital Signs - 12hr 12/25/18 12/26/18 22:42 04:49 Temperature 98.5 F Pulse Rate 85 85 Respiratory 18 Rate Blood Pressure 120/49 109/37 O2 Sat by Pulse 98 Oximetry - General Appearance General appearance: well-developed, well-nourished EENT: ATNC, PERRL, mucous membranes moist Neck: no JVD Respiratory: Present: Clear to Ascultation Cardiology: regular, S1S2 Gastrointestinal: normal, normoactive bowel sounds Integumentary: no rash Neurologic: alert and oriented x3 Psychiatric: mood/affect appropriate - Lab 12/23/18 09:20 12/25/18 11:35 Most recent lab results Calcium 7.1 mg/dL (8.4-10.2) L 12/25/18 11:35 - Imaging Chest x-ray: image reviewed (I reviewed CXR with few patchy opacities .) Medications & Allergies - Medications Allergies/Adverse Reactions: Allergies fluconazole [From Diflucan] Allergy (Verified 05/23/17 10:25) Swelling Home Medications: Home Medications Medication Instructions Recorded Confirmed Last Taken Type Carvedilol [Coreg] 12.5 mg PO BID 05/26/15 12/23/18 12/22/18 History Insulin Detemir [Levemir VIAL] 30 units SUB-Q QHS 05/26/15 12/23/18 12/23/18 History amLODIPine [Norvasc] 10 mg PO DAILY 05/26/15 12/23/18 12/22/18 History B Complex 11/Folic/C/Biot/Zinc 1 each PO DAILY 07/16/16 12/23/18 12/22/18 History [Dialyvite with Zinc Tablet] Calcium Acetate [Phoslo] 667 mg PO AC 07/09/18 12/23/18 12/23/18 History Sodium Bicarbonate 2 tab PO DAILY 07/09/18 12/23/18 12/22/18 History Active Medications: Generic Name Dose Route Start Last Admin Trade Name Freq PRN Reason Stop Dose Admin Acetaminophen 650 mg 12/23/18 13:39 12/24/18 11:41 Tylenol PO 650 mg Q4H PRN Administration Pain MILD(1-3)/Fever >100.5/RUBIO Albuterol 2.5 mg 12/23/18 13:39 Proventil IH Q4HRT PRN Shortness Of Breath Amlodipine Besylate 10 mg 12/24/18 10:00 12/25/18 10:00 Norvasc PO Not Given DAILY [facility] Aspirin 81 mg 12/25/18 15:00 12/25/18 10:00 Halfprin Ec PO Not Given QDAY [facility] Calcium Acetate 667 mg 12/23/18 16:30 12/25/18 16:30 Phoslo PO Not Given AC [facility] Carvedilol 12.5 mg 12/23/18 22:00 12/25/18 22:42 Coreg PO 12.5 mg BID [facility] Administration Multivit/Ca Carb/B Cmplx/FA/Prenat 1 cap 12/24/18 10:00 12/25/18 10:00 Renal Caps PO Not Given QDAY [facility] Ondansetron HCl 4 mg 12/23/18 13:39 12/24/18 11:41 Zofran IV 4 mg Q8H PRN Administration Nausea And Vomiting Sodium Chloride 10 ml 12/23/18 22:00 12/25/18 22:49 Sodium Chloride Flush Syringe 10 Ml IV 10 ml BID [facility] Administration Sodium Chloride 10 ml 12/23/18 13:39 Sodium Chloride Flush Syringe 10 Ml IV PRN PRN LINE FLUSH
--- NOTE | 2018-12-26 11:01 | Progress Note ---
Assessment and Plan The patient may be discharged home from a vascular standpoint now that her graft has been declawed it and her vas Has been removed. She will need to follow up in our office for postoperative visit. [facility] [place] [address] [place] [address] Subjective Date of service: 12/26/18 Principal diagnosis: Malfunctioning dialysis access Interval history: Patient with a history of end-stage renal disease on hemodialysis. On presentation, the patient had no access and a Vas-Cath was placed. Subsequentl y, the patient's right upper arm AV graft underwent intervention and declotting with successful dialysis yesterday. Patient has a palpable thrill on examination. Vas-Cath was removed yesterday. Objective - Constitutional Vitals: Vital Signs - 12hr 12/26/18 04:49 Temperature 98.5 F Pulse Rate 85 Respiratory 18 Rate Blood Pressure 109/37 O2 Sat by Pulse 98 Oximetry General appearance: Present: no acute distress - EENT Eyes: EOM intact ENT: hearing intact - Neck Neck: supple, normal ROM - Breasts Breasts: deferred Extremities: abnormal - Gastrointestinal General gastrointestinal: Present: deferred Rectal Exam: deferred - Genitourinary Female genitourinary: deferred - Psychiatric Psychiatric: cooperative - Labs CBC & Chem 7: 12/23/18 09:20 12/25/18 11:35 Labs: Abnormal lab results 12/25/18 12/25/18 12/26/18 Range/Units 11:35 21:45 08:18 Sodium 134 L (137-145) mmol/L Potassium 5.7 H D (3.6-5.0) mmol/L Chloride 93.8 L (98-107) mmol/L Carbon Dioxide 18 L D (22-30) mmol/L BUN 54 H (7-17) mg/dL Creatinine 11.0 H (0.7-1.2) mg/dL Glucose 130 H (65-100) mg/dL POC Glucose 171 H 134 H (70-105) Calcium 7.1 L (8.4-10.2) mg/dL Medications & Allergies - Medications Allergies/Adverse Reactions: Allergies fluconazole [From Diflucan] Allergy (Verified 05/23/17 10:25) Swelling Home Medications: Home Medications Medication Instructions Recorded Confirmed Last Taken Type Carvedilol [Coreg] 12.5 mg PO BID 12/24/15 07/23/19 07/22/19 History Insulin Detemir [Levemir VIAL] 30 units SUB-Q QHS 05/26/15 12/23/18 12/23/18 History amLODIPine [Norvasc] 10 mg PO DAILY 05/26/15 12/23/18 12/22/18 History B Complex 11/Folic/C/Biot/Zinc 1 each PO DAILY 07/16/16 12/23/18 12/22/18 History [Dialyvite with Zinc Tablet] Calcium Acetate [Phoslo] 667 mg PO AC 07/09/18 12/23/18 12/23/18 History Sodium Bicarbonate 2 tab PO DAILY 07/09/18 12/23/18 12/22/18 History Active Medications: Generic Name Dose Route Start Last Admin Trade Name Freq PRN Reason Stop Dose Admin Acetaminophen 650 mg 12/23/18 13:39 12/24/18 11:41 Tylenol PO 650 mg Q4H PRN Administration Pain MILD(1-3)/Fever >100.5/RUBIO Albuterol 2.5 mg 12/23/18 13:39 Proventil IH Q4HRT PRN Shortness Of Breath Amlodipine Besylate 10 mg 12/24/18 10:00 12/25/18 10:00 Norvasc PO Not Given DAILY [facility] Aspirin 81 mg 12/25/18 15:00 12/25/18 10:00 Halfprin Ec PO Not Given QDAY [facility] Calcium Acetate 667 mg 12/23/18 16:30 12/25/18 16:30 Phoslo PO Not Given AC [facility] Carvedilol 12.5 mg 12/23/18 22:00 12/25/18 22:42 Coreg PO 12.5 mg BID SAMM Administration Multivit/Ca Carb/B Cmplx/FA/Prenat 1 cap 12/24/18 10:00 12/25/18 10:00 Renal Caps PO Not Given QDAY [facility] Ondansetron HCl 4 mg 12/23/18 13:39 12/24/18 11:41 Zofran IV 4 mg Q8H PRN Administration Nausea And Vomiting Sodium Chloride 10 ml 12/23/18 22:00 12/25/18 22:49 Sodium Chloride Flush Syringe 10 Ml IV 10 ml BID SAMM Administration Sodium Chloride 10 ml 12/23/18 13:39 Sodium Chloride Flush Syringe 10 Ml IV PRN PRN LINE FLUSH
[2018-12-26] MEDS: COREG PO SCH ×2 (11:32→12:55)
[2018-12-26] MEDS: Renal Caps PO SCH (11:32)
[2018-12-26] MEDS: HALFPRIN EC PO SCH (11:32)
[2018-12-26] MEDS: NORVASC PO SCH ×2 (11:34→13:16)
[2018-12-26] MEDS: SODIUM CHLORIDE FLUSH SYRINGE 10 ML IV SCH (11:35)
--- NOTE | 2018-12-26 12:03 | Discharge Summary ---
Providers - Providers Date of Admission: 12/23/18 13:39 Date of discharge: 12/26/18 Attending physician: ROSA HENDRICKSON 12/23/18 13:44 Consult to Physician [CONS] Routine Comment: DR JENAE YING W/DR TRISTAN @1036 Consulting Provider: DMITRY HOYOS Physician Instructions: Reason For Exam: esrd Consult to Physician [CONS] Routine Comment: DR JENAE YING W/DR FIELD @1115 Consulting Provider: DELANO FIELD Physician Instructions: Reason For Exam: clotted AV fistula 12/23/18 13:45 Consult to Physician [CONS] Routine Comment: CALEB FENG VASCULAR CLD @1116/DR GARCIA IN SENIOR CLIENT ADVISOR Consulting Provider: MIK BETANCOURT Physician Instructions: Reason For Exam: clotted AV Fistula Primary care physician: SHANIA HAGAN Hospitalization Condition: Stable Pertinent studies: CXR duplex arterial US Hospital course: Brief history: 48-year-old lady with medical history of cognitive disability, hypertension, diabetes mellitus type 2, end-stage renal disease has a right arm clotted AVG on hemodialysis Saturday at [facility] presents with complaint of inability to dialyze due to clotted AV access left. The last full dialysis was . She has no shortness of breath also denies any fevers or chills there is no associated Any Nausea Vomiting. Vascath placed by vascular for emergent Hd on admission, s/p declot of AVF and that was able to use for HD. vascath taken off and patient was discharged home with family care in stable condition. Discharge diagnosis and management; / ESRD needing dialysis Nephrology consulted in ED, dialysis as per renal team, vascath placed by vascular for emergent HD on admission If AVF works then vascath will be taken off before discharge / Hyperkalemia cont to monitor, s/p IV Calcium gluconate, Kayexelate, and emergent HD on admission plan for another Hd today / Metabolic Acidosis to ESRD follow BMP / Down syndrome, unspecified supportive care, / Thrombosis of arteriovenous graft Vascular Surgery/IR notified, plan for surgical intervention today. / GERD (gastroesophageal reflux disease) PPI therapy, supportive care. / Hypocalcemia Calcium gluconate, monitor bmp, /Anemia due to chronic kidney disease, on chronic dialysis Moderate anemia hemoglobin 8.3 g/dl, monitor h/h Epogen [id number] with HD /HTN, held for low BP on discharge /DM 2 ID, managed with SSI as needed / DVT prophylaxis SCD to BLE while in bed, prophylactic heparin Physical exam: General appearance: well-developed, well-nourished, obese EENT: ATNC, PERRL, mucous membranes moist Neck: Present: neck supple Respiratory: Decreased Breath Sounds Heart: regular, S1S2 Gastrointestinal: Present: normal, normoactive bowel sounds Integumentary: no rash Neurologic: CN 3-12 intact, other (awake) Psychiatric: mood/affect appropriate Disposition: DC-01 TO HOME OR SELFCARE Time spent for discharge: 34 minutes Core Measure Documentation - Palliative Care Palliative Care/ Comfort Measures: Not Applicable - Core Measures Any of the following diagnoses?: none Exam - Constitutional Vitals: Temp Pulse Resp BP Pulse Ox 98.5 F 85 18 109/37 98 12/26/18 04:49 12/26/18 04:49 12/26/18 04:49 12/26/18 04:49 12/26/18 04:49 Plan Activity: advance as tolerated Weight Bearing Status: Weight Bear as Tolerated Diet: renal Follow up with: SHANIA HAGAN MD [Primary Care Provider] - 3-5 Days
[2018-12-26] MEDS ORDERED: HumuLIN R SUB-Q SCH (12:15)
[2018-12-26 14:48] VITALS: BP 92/41
[2018-12-26 15:19] LABS: Calcium 7.3 mg/dL (8.4-10.2)
== END 2018-12-26 16:45 | disposition home or self-care (01) | DRG 270 ==
LOC: ED 08:48 → 3A 13:39
PROVIDERS: ADMIT Internal Medicine; ATTEND Internal Medicine
PROC: 06HM33Z Insertion of Infusion Device into Right Femoral Vein, Percutaneous Approach (ICD-10-PCS; principal; 2018-12-23)
PROC: B51B1ZA Fluoroscopy of Right Lower Extremity Veins using Low Osmolar Contrast, Guidance (ICD-10-PCS; 2018-12-23)
PROC: B54CZZA Ultrasonography of Left Lower Extremity Veins, Guidance (ICD-10-PCS; 2018-12-23)
PROC: 5A1D70Z Performance of Urinary Filtration, Intermittent, Less than 6 Hours Per Day (ICD-10-PCS; 2018-12-23)
PROC: 03V Upper Arteries, Restriction (ICD-10-PCS; 2018-12-25)
PROC: 03C70ZZ Extirpation of Matter from Right Brachial Artery, Open Approach (ICD-10-PCS; 2018-12-25)
PROC: 037 Upper Arteries, Dilation (ICD-10-PCS; 2018-12-25)
PROC: 5A1D70Z Performance of Urinary Filtration, Intermittent, Less than 6 Hours Per Day (ICD-10-PCS; 2018-12-25)
PROC: B31H1ZZ Fluoroscopy of Right Upper Extremity Arteries using Low Osmolar Contrast (ICD-10-PCS; 2018-12-25)
PROC: B51W1ZZ Fluoroscopy of Dialysis Shunt/Fistula using Low Osmolar Contrast (ICD-10-PCS; 2018-12-25)
PROC: B2141ZZ Fluoroscopy of Right Heart using Low Osmolar Contrast (ICD-10-PCS; 2018-12-25)
PROC: B5191ZZ Fluoroscopy of Inferior Vena Cava using Low Osmolar Contrast (ICD-10-PCS; 2018-12-25)
PROC: 3E05317 Introduction of Other Thrombolytic into Peripheral Artery, Percutaneous Approach (ICD-10-PCS; 2018-12-25)
DX: T82.868A Thrombosis due to vascular prosthetic devices, implants and grafts, initial encounter (principal); N18.6 End stage renal disease; E87.2 Acidosis; I12.0 Hypertensive chronic kidney disease with stage 5 chronic kidney disease or end stage renal disease; Y83.2 Surgical operation with anastomosis, bypass or graft as the cause of abnormal reaction of the patient, or of later complication, without mention of misadventure at the time of the procedure; D63.1 Anemia in chronic kidney disease; E87.5 Hyperkalemia; E11.22 Type 2 diabetes mellitus with diabetic chronic kidney disease; K21.9 Gastro-esophageal reflux disease without esophagitis; E83.51 Hypocalcemia; Z83.3 Family history of diabetes mellitus; Z99.2 Dependence on renal dialysis; Z82.49 Family history of ischemic heart disease and other diseases of the circulatory system; Z88.8 Allergy status to other drugs, medicaments and biological substances; Z98.49 Cataract extraction status, unspecified eye; Z79.4 Long term (current) use of insulin; Z79.899 Other long term (current) drug therapy; Q90.9 Down syndrome, unspecified; Y92.098 Other place in other non-institutional residence as the place of occurrence of the external cause
CPT/HCPCS: 36415; 36556; 36906; 71045; 76937; 80048; 80053; 80074; 82962; 85025; 85610; 85730; 93005; 93010; 96374; 96375; 96376; G0378; C1725; C1752; C1757; C1769; C1874; C1894; C2623; J0610; J1644; J1815; J1940; J2250; J2405; J2997; J3010; J7030; J7040; J7050; Q9967

== ENCOUNTER 2019-03-08 18:20 | Inpatient (IN) | payer MEDICARE ==
--- NOTE | 2019-03-08 18:37 | Emergency Department Report ---
Blank Doc - Documentation Documentation: 48-year-old female that presents with abdominal pain, n/v, SOB, cough, and chest pain. This initial assessment/diagnostic orders/clinical plan/treatment(s) is/are subject to change based on patient's health status, clinical progression and re- assessment by fellow clinical providers in the ED. Further treatment and workup at subsequent clinical providers discretion. Patient/guardians urged not to elope from the ED as their condition may be serious if not clinically assessed and managed. Initial orders include: 1- Patient sent to MAIN for further evaluation and treatment 2- nasal O2 4L 3- labs 4- EKG 5- CXR
[2019-03-08] MEDS ORDERED: MORPHINE 4 MG/1 ML INJ IV ONE (19:45)
[2019-03-08] MEDS ORDERED: ONDANSETRON 4 MG/2 ML INJ IV ONE (19:45)
[2019-03-08 20:41] LABS: INR 1.16 (0.87-1.13)
[2019-03-08 20:42] LABS: Partial Thromboplastin Time 27.8 Sec. (24.2-36.6)
[2019-03-08 20:47] LABS: Basophils # (Auto) 0.1 K/mm3 (0.0-0.1); Basophils % (Auto) 1.4 % (0.0-1.8); Eosinophils # (Auto) 0.1 K/mm3 (0.0-0.4); Eosinophils % (Auto) 1.5 % (0.0-4.3); Hematocrit 29.2 % (30.3-42.9); Hemoglobin 9.7 gm/dl (10.1-14.3); Lymphocytes # (Auto) 0.9 K/mm3 (1.2-5.4); Lymphocytes % (Auto) 9.1 % (13.4-35.0); Mean Corpuscular HGB Conc 33 % (30-34); Mean Corpuscular Volume 97 fl (79-97); Monocytes # (Auto) 0.9 K/mm3 (0.0-0.8); Monocytes % (Auto) 8.5 % (0.0-7.3); Platelet Count 118 K/mm3 (140-440); Red Blood Count 3.03 M/mm3 (3.65-5.03); Red Cell Distribution Width 19.4 % (13.2-15.2)
[2019-03-08 20:58] LABS: Albumin 3.9 g/dL (3.9-5); Calcium 8.6 mg/dL (8.4-10.2)
--- NOTE | 2019-03-08 21:26 | XRay Report ---
CHEST 1 VIEW INDICATION / CLINICAL INFORMATION: Chest Pain. COMPARISON: 12/23/2018 FINDINGS: SUPPORT DEVICES: Large bore central venous line is stable in position compared with prior radiograph with the tip projecting at the cavoatrial junction. HEART / MEDIASTINUM: Cardiac silhouette remains upper limits of normal for size. LUNGS / PLEURA: No significant pulmonary or pleural abnormality. No pneumothorax. No interstitial pul monary edema. ADDITIONAL FINDINGS: No significant additional findings. IMPRESSION: 1. No acute pulmonary disease. Signer Name: Chula Gordon MD Signed: 03/08/2019 9:21 PM Workstation Name: [id number]
[2019-03-08 21:36] LABS: Chol/HDL Ratio 2.78 %
--- NOTE | 2019-03-08 21:56 | Cat Scan Report ---
CT abdomen pelvis wo con INDICATION / CLINICAL INFORMATION: abdominal pain. Nausea, vomiting, dialysis patient TECHNIQUE: Axial CT imaging of abdomen and pelvis was obtained without contrast. Coronal and sagittal reformatte d imaging obtained and reviewed. All CT scans at this location are performed using CT dose reduction for ALARA by means of automated exposure control. COMPARISON: Prior CT abdomen/pelvis, 09/08/2018 FINDINGS: CT abdomen without contrast demonstrates grossly normal appearance of the liver, spleen, pancreas, ad renal glands, and gallbladder. Both kidneys are atrophic but there is no hydronephrosis or obvious re nal mass on this noncontrast CT. A right femoral central venous line is present with the tip projecti ng in the IVC above the level of the renal veins. CT pelvis demonstrates a umbilical hernia containing only fat. No pelvic mass, free fluid, or focal i nflammatory changes noted. A normal appendix is present. GI tract is unremarkable. Visualized lung bases are clear. Review of osseous structures shows multilevel degenerative disc disease with minimal anterolisthesis of L3 on L4. IMPRESSION: 1. No acute finding within the abdomen or pelvis. 2. Umbilical hernia containing only fat, unchanged. Signer Name: Chula Gordon MD Signed: 03/08/2019 9:52 PM Workstation Name: [id number]
--- NOTE | 2019-03-08 23:19 | Emergency Department Report ---
ED Abdominal Pain HPI - General Chief Complaint: Abdominal Pain Stated Complaint: ABD PAIN Time Seen by Provider: 03/08/19 18:34 Source: family Mode of arrival: Wheelchair Limitations: No Limitations - History of Present Illness Initial Comments: Patient is a 48-year-old -[place] female with a history of hypertension, udj-usapflt-ikoqeneuy diabetes and ESRD on hemodialysis who presents to the ED with complaint of acute onset persistent diffuse abdominal pain with nausea and vomiting for the last 2 days. Per the caregiver, the patient had uneventful regular hemodialysis 24 hours ago but started having the symptoms thereafter. Per caregiver, patient has not had any diarrhea, chest pain, shortness of breath, dizziness, headache, cough, fever, chills, change in vision, loss of consciousness, syncope or headache MD Complaint: abdominal pain, other (Nausea and vomiting) -: Sudden, days(s) (2) Location: diffuse Radiation: none Migration to: no migration Severity: severe Severity scale (0 -10): 7 Quality: cramping, aching, sharp Consistency: constant Improves With: nothing Worsens With: nothing Associated Symptoms: denies other symptoms, nausea, vomiting. denies: diarrhea, fever, chills, constipation, dysuria, hematemesis, hematochezia, melena, syncope, other - Related Data Home Medications Medication Instructions Recorded Confirmed Last Taken B Complex 11/Folic/C/Biot/Zinc 1 each PO DAILY 07/16/16 12/23/18 12/22/18 [Dialyvite with Zinc Tablet] Calcium Acetate [Phoslo] 667 mg PO AC 07/09/18 12/23/18 12/23/18 Sodium Bicarbonate 2 tab PO DAILY 07/09/18 12/23/18 12/22/18 Previous Rx's Medication Instructions Recorded Last Taken Type Aspirin EC [Halfprin EC] 81 mg PO QDAY tablet 12/26/18 Unknown Rx Insulin Detemir [Levemir VIAL] 10 units SUB-Q QHS 30 Days 12/26/18 12/23/18 Rx 30 units Allergies Allergy/AdvReac Type Severity Reaction Status Date / Time fluconazole [From Diflucan] Allergy Swelling Verified 05/23/17 10:25 ED Review of Systems ROS: Stated complaint: ABD PAIN Other details as noted in HPI Constitutional: denies: chills, fever Eyes: denies: eye pain, eye discharge, vision change ENT: denies: ear pain, throat pain Respiratory: denies: cough, shortness of breath, wheezing Cardiovascular: denies: chest pain, palpitations Endocrine: no symptoms reported Gastrointestinal: abdominal pain, nausea, vomiting. denies: diarrhea Genitourinary: denies: urgency, dysuria, discharge Musculoskeletal: denies: back pain, joint swelling, arthralgia Skin: denies: rash, lesions Neurological: denies: headache, weakness, paresthesias Psychiatric: denies: anxiety, depression Hematological/Lymphatic: denies: easy bleeding, easy bruising ED Past Medical Hx - Past Medical History Hx Hypertension: Yes Hx Heart Attack/AMI: No Hx Congestive Heart Failure: No Hx Diabetes: Yes Hx GERD: Yes Hx Liver Disease: No Hx Renal Disease: Yes (Sat) Hx Sickle Cell Disease: No Hx Seizures: No Hx Asthma: No Hx COPD: No Hx Dementia: No Hx HIV: No Additional medical history: Down syndrome - Surgical History Hx Pacemaker: No Hx Internal Defibrillator: No Additional Surgical History: Fistula left upper armCataracts surgery - Social History Smoking Status: Never Smoker Substance Use Type: None - Medications Home Medications: Home Medications Medication Instructions Recorded Confirmed Last Taken Type B Complex 11/Folic/C/Biot/Zinc 1 each PO DAILY 07/16/16 12/23/18 12/22/18 History [Dialyvite with Zinc Tablet] Calcium Acetate [Phoslo] 667 mg PO AC 07/09/18 12/23/18 12/23/18 History Sodium Bicarbonate 2 tab PO DAILY 07/09/18 12/23/18 12/22/18 History Aspirin EC [Halfprin EC] 81 mg PO QDAY tablet 12/26/18 Unknown Rx Insulin Detemir [Levemir VIAL] 10 units SUB-Q QHS 30 Days 12/26/18 12/23/18 12/23/18 Rx 30 units ED Physical Exam - General Limitations: No Limitations General appearance: alert, in no apparent distress - Head Head exam: Present: atraumatic, normocephalic, normal inspection - Eye Eye exam: Present: normal appearance, PERRL, EOMI Pupils: Present: normal accommodation - ENT ENT exam: Present: normal exam, normal orophraynx, mucous membranes moist, TM's normal bilaterally, normal external ear exam - Neck Neck exam: Present: normal inspection, full ROM - Respiratory Respiratory exam: Present: normal lung sounds bilaterally. Absent: respiratory distress, wheezes, rales, chest wall tenderness, accessory muscle use, prolonged expiratory - Cardiovascular Cardiovascular Exam: Present: normal rhythm, tachycardia, normal heart sounds. Absent: systolic murmur, diastolic murmur, rubs, gallop - GI/Abdominal GI/Abdominal exam: Present: soft, tenderness (palpable moderately diffuse abdominal tenderness), normal bowel sounds. Absent: guarding, rebound, hyperactive bowel sounds, hypoactive bowel sounds, mass - Extremities Exam Extremities exam: Present: normal inspection, full ROM, normal capillary refill - Back Exam Back exam: Present: normal inspection, full ROM - Neurological Exam Neurological exam: Present: alert, oriented X3, CN II-XII intact, normal gait, reflexes normal - Psychiatric Psychiatric exam: Present: normal affect, normal mood - Skin Skin exam: Present: warm, dry, intact, normal color. Absent: rash ED Course Vital Signs 03/08/19 03/08/19 03/08/19 18:30 19:47 20:00 Temperature 98.4 F Pulse Rate 110 H Respiratory 22 Rate Blood Pressure 141/90 O2 Sat by Pulse 88 97 100 Oximetry 03/08/19 03/08/19 03/08/19 20:02 20:17 20:30 Temperature Pulse Rate Respiratory 20 Rate Blood Pressure O2 Sat by Pulse 99 100 96 Oximetry 03/08/19 03/08/19 03/08/19 20:43 20:45 21:00 Temperature Pulse Rate Respiratory 20 Rate Blood Pressure 154/88 154/88 O2 Sat by Pulse 78 L Oximetry 03/08/19 03/08/19 03/08/19 21:15 21:30 21:45 Temperature Pulse Rate Respiratory Rate Blood Pressure 154/88 154/88 120/43 O2 Sat by Pulse 100 96 98 Oximetry - Reevaluation(s) Reevaluation #1: 03/08/19 23:19 This is a 48-year-old -[place] female with a history of hypertension, skk-[id number]-cjomwrbku diabetes and ESRD on hemodialysis who presented to the ED with abdominal pain diffusely for the last 2 days. In the ED, patient is alert and oriented 3 and is not in distress but appears to be uncomfortable with physical exam showing moderate discomfort when the abdomen is palpated. Lab test results were reviewed and this shows elevated troponin level of 0.084 and 0.080 respectively for the initial and repeat troponin. The lab test results also showed mild hyperkalemia of 5.4 mmol per liter, hyponatremia of 135 mg millimoles per liter, the BUN of 64 and creatinine of 8.8 which is baseline chronic for her chronic renal disease, hemoglobin of 9.7 and hematocrit of 29.2 with glucose level of 2 94 mg/dL. Patient was treated for pain in the ED and EKG shows sinus tachycardia with ventricular rate of [address] or T-wave abnormalities. Chest x-ray shows no acute cardiopulmonary abnormalities or pneumonitis. The abdomen pelvis CT scan without contrast shows no acute abdominal or pelvis pathology or abnormalities. On reevaluation, patient's pain is well controlled with medications. These findings were discussed with the ED attending physician Dr. Olivera who advised that the patient be admitted by the hospitalist physician senior pensions administrator Dr. Abarca for further evaluation. ED Medical Decision Making - Lab Data Result diagrams: 03/08/19 20:15 03/08/19 20:15 - EKG Data EKG shows normal: sinus rhythm Rate: tachycardia - EKG Data 03/08/19 23:25 Sinus tachycardia, ventricular rate of 100 bpm, no ST or T-wave abnormalities. - Radiology Data Radiology results: report reviewed, [place] [address] XRay Report Signed Patient: EARNESTINE SANTORO MR#: [id number] : 1970 Acct:[id number] Age/Sex: 48 / F ADM Date: 03/08/19 Loc: ED Attending Dr: Ordering Physician: ANDRAE CHENEY NP Date of Service: 03/08/19 Procedure(s): XR chest 1V ap Accession Number(s): [id number] cc: ANDRAE CHENEY NP Fluoro Time In Minutes: CHEST 1 VIEW INDICATION / CLINICAL INFORMATION: Chest Pain. COMPARISON: 12/23/2018 FINDINGS: SUPPORT DEVICES: Large bore central venous line is stable in position compared with prior radiograph with the tip projecting at the cavoatrial junction. HEART / MEDIASTINUM: Cardiac silhouette remains upper limits of normal for size. LUNGS / PLEURA: No significant pulmonary or pleural abnormality. No pneumothorax. No interstitial pulmonary edema. ADDITIONAL FINDINGS: No significant additional findings. IMPRESSION: 1. No acute pulmonary disease. Signer Name: Chula Gordon MD Signed: 03/08/2019 9:21 PM Workstation Name: [id number] Transcribed By: JR Dictated By: Chula Gordon MD Electronically Authenticated By: Chula Gordon MD Signed Date/Time: 03/08/192120 Findings [facility] [address] [place] [address] Cat Scan Report Signed Patient: EARNESTINE SANTORO MR#: [id number] : 1970 Acct:[id number] Age/Sex: 48 / F ADM Date: 03/08/19 Loc: ED Attending Dr: Ordering Physician: THOMAS OLIVEIRA Date of Service: 03/08/19 Procedure(s): CT abdomen pelvis wo con Accession Number(s): [id number] cc: THOMAS OLIVEIRA CT abdomen pelvis wo con INDICATION / CLINICAL INFORMATION: abdominal pain. Nausea, vomiting, dialysis patient TECHNIQUE: Axial CT imaging of abdomen and pelvis was obtained without contrast. Coronal and sagittal reformatted imaging obtained and reviewed. All CT scans at this location are performed using CT dose reduction for ALARA by means of automated exposure control. COMPARISON: Prior CT abdomen/pelvis, 09/08/2018 FINDINGS: CT abdomen without contrast demonstrates grossly normal appearance of the liver, spleen, pancreas, adrenal glands, and gallbladder. Both kidneys are atrophic but there is no hydronephrosis or obvious renal mass on this noncontrast CT. A right femoral central venous line is present with the tip projecting in the IVC above the level of the renal veins. CT pelvis demonstrates a umbilical hernia containing only fat. No pelvic mass, free fluid, or focal inflammatory changes noted. A normal appendix is present. GI tract is unremarkable. Visualized lung bases are clear. Review of osseous structures shows multilevel degenerative disc disease with minimal anterolisthesis of L3 on L4. IMPRESSION: 1. No acute finding within the abdomen or pelvis. 2. Umbilical hernia containing only fat, unchanged. Signer Name: Chula Gordon MD Signed: 03/08/2019 9:52 PM Workstation Name: [id number] Transcribed By: Dictated By: Chula Gordon MD Electronically Authenticated By: Chula Gordon MD Signed Date/Time: 03/08/19 7431 - Medical Decision Making This is a 48-year-old -[place] female with a history of hypertension, ckg-bssqmtt-hrsvlseow diabetes and ESRD on hemodialysis who presented to the ED with abdominal pain diffusely for the last 2 days. In the ED, patient is alert and oriented 3 and is not in distress but appears to be uncomfortable with physical exam showing moderate discomfort when the abdomen is palpated. Lab test results were reviewed and this shows elevated troponin level of 0.084 and 0.080 respectively for the initial and repeat troponin. The lab test results also showed mild hyperkalemia of 5.4 mmol per liter, hyponatremia of 135 mg millimoles per liter, the BUN of 64 and creatinine of 8.8 which is baseline chronic for her chronic renal disease, hemoglobin of 9.7 and hematocrit of 29.2 with glucose level of 2 94 mg/dL. Patient was treated for pain in the ED and EKG shows sinus tachycardia with ventricular rate of [address] or T-wave abnormalities. Chest x-ray shows no acute cardiopulmonary abnormalities or pneumonitis. The abdomen pelvis CT scan without contrast shows no acute abdominal or pelvis pathology or abnormalities. On reevaluation, patient's pain is well controlled with medications. These findings were discussed with the ED attending physician Dr. Olivera who advised that the patient be admitted by the hospitalist physician senior pensions administrator Dr. Abarca for further evaluation. - Differential Diagnosis NSTEMI; ABDOMINAL PAIN; Pneumonia; nausea and vomiting; dehydration Critical care attestation.: If time is entered above; I have spent that time in minutes in the direct care of this critically ill patient, excluding procedure time. ED Disposition Clinical Impression: NSTEMI (non-ST elevated myocardial infarction), Nausea and vomiting in adult Abdominal pain Qualifiers: Abdominal location: generalized Qualified Code(s): R10.84 - Generalized abdominal pain Disposition: 09 OP ADMIT IP TO THIS HOSP Is pt being admited?: Yes Does the pt Need Aspirin: Yes Condition: Stable Instructions: Abdominal Pain (ED) Referrals: PRIMARY CARE, [Primary Care Provider] - 3-5 Days Time of Disposition: 23:33
[2019-03-08] MEDS ORDERED: ASPIRIN 81 MG TAB CHEW PO ONE (23:34)
[2019-03-09] MEDS ORDERED: ONDANSETRON 4 MG/2 ML INJ IV PRN (00:43)
[2019-03-09] MEDS ORDERED: MORPHINE 2 MG/1 ML INJ IV PRN (00:43)
[2019-03-09] MEDS ORDERED: ACETAMINOPHEN 325 MG TAB PO PRN (00:44)
[2019-03-09] MEDS ORDERED: DEXTROSE 50% IN WATER (25GM) 50 ML SYRINGE IV PRN (00:48)
[2019-03-09] MEDS: CALCIUM ACETATE 667 MG CAP PO SCH ×3 (09:00→20:20)
[2019-03-09] MEDS: INSULIN REGULAR, HUMAN 100 UNITS/1 ML SUB-Q SCH ×3 (09:11→20:19)
--- NOTE | 2019-03-09 09:31 | History and Physical Report ---
CHIEF COMPLAINT: Abdominal pain. Other complaint includes elevated troponin level. HISTORY OF PRESENTING ILLNESS: The patient is a 48-year-old female who was brought in because of abdominal pain, and the patient is a dialysis patient. After going to dialysis, the patient was noted to have elevated troponin level. There is also history of nausea and vomiting associated with abdominal pain going on for 2 days. There is no history of fever or chills and no history of diarrhea, chest pain or shortness of breath, and the patient was presented for admission. PAST MEDICAL HISTORY: Pertinent for diabetes mellitus, end-stage renal disease, on dialysis. Also, past medical history is pertinent for Down syndrome. Also, the patient has past medical history of hypertension. PAST SURGICAL HISTORY: Pertinent for dialysis fistula in the left upper arm, and also, there is past surgical history of cataract surgery. FAMILY HISTORY: Noncontributory. SOCIAL HISTORY: The patient does not smoke, does not drink alcohol and does not use illicit drugs. MEDICATIONS: The patient is on Dialyvite with zinc tablet 1 by mouth daily, calcium acetate 667 mg by mouth before meals. The patient is also on sodium bicarbonate 2 tablets, strength unknown, daily by mouth, and the patient is also on aspirin 81 mg by mouth daily and on Levemir insulin 10 units subcutaneously at bedtime. ALLERGIES: THE PATIENT IS ALLERGIC TO FLUCONAZOLE. REVIEW OF SYSTEMS: CONSTITUTIONAL: There is no fever, no chills, no diaphoresis. HEENT: There is no headache or sore throat. CARDIOVASCULAR SYSTEM: There is no chest pain or orthopnea. RESPIRATORY SYSTEM: There is no shortness of breath or cough. GASTROINTESTINAL SYSTEM: There is abdominal pain, nausea, and vomiting, but no diarrhea. NEUROLOGICAL SYSTEM: There is no numbness, no dizziness, no altered mental status. MUSCULOSKELETAL SYSTEM: There is no joint pain or swelling. DERMATOLOGICAL SYSTEM: There is no skin rash or itching. GENITOURINARY SYSTEM: There is dysuria, but no hematuria or flank pain. Rest of system review is normal. PHYSICAL EXAMINATION: GENERAL: At the time of exam, the patient was found to be alert, oriented to person only and not in acute distress. VITAL SIGNS: At the initial time of presentation showed temperature of 98.4 degrees Fahrenheit, pulse of 110, respirations 22, blood pressure 141/90, O2 sat of 88% on room air. HEENT: Showed pupils to be equal, round, reactive to light and accommodating. Extraocular muscles are intact. NECK: Supple with no JVD or carotid bruit. CARDIOVASCULAR SYSTEM: Showed normal first and second heart sounds with no gallops or murmurs, but there is a rapid rate. RESPIRATORY SYSTEM: Showed good air entry on both sides of the lungs, with no abnormal breath sounds. GASTROINTESTINAL SYSTEM: Showed abdomen to be full, soft, nontender with no organomegaly or rigidity. NEUROLOGIC: Showed no focal deficit. MUSCULOSKELETAL SYSTEM: Showed no joint swelling or tenderness. DERMATOLOGICAL SYSTEM: Showed no skin rash. GENITOURINARY SYSTEM: Showing no costovertebral angle tenderness. PERTINENT LABORATORY AND IMAGING STUDIES: The patient has CT of the abdomen and pelvis without contrast done that shows no acute finding, but shows an umbilical hernia containing only fat, which has been there for some time. The patient had chest x-ray done that shows no acute pulmonary disease. Lab results, the patient has CBC done with normal white count, low hemoglobin of 9.7 and low hematocrit of 29.2. The patient's platelet count is low with a value of 118 and CBC differential showed elevated monocyte count of 8.5% with high segmentary neutrophil count of 79.5. Coagulation studies were unremarkable. The patient's chemistry showed low sodium of 135, elevated potassium of 5.4 with low chloride of 92.5, elevated BUN of 64 with high creatinine of 8.8, and the patient's blood glucose level is high with a value of 294. The patient's initial troponin level was high with a value of 0.080. DIAGNOSES: 1. Elevated troponin level. 2. Abdominal pain. 3. End-stage renal disease, on dialysis. PLAN OF CARE: 1. The patient will be admitted to telemetry. 2. The patient will have serial cardiac enzyme involving troponin, total CK, and CK-MB checked q.6 hours x 2 more levels. 3. The patient will have Cardiology consult with Dr. Reyna this morning, 03/09/2019, and will also have a Nephrology consult with for management of end-stage renal disease, on dialysis. 4. The patient will be on Accu-Chek before meals and at bedtime, followed by low-dose sliding scale using regular insulin coverage. 5. The patient will be on Tylenol 650 mg by mouth every 4 hours for fever and headache and will be on home medication as shown in the medication reconciliation section. 6. The patient will be on IV morphine 2 mg every 4 hours as needed for pain and IV Zofran 4 mg every 8 hours for nausea and vomiting. 7. The patient will continue oxygen by nasal cannula at 2 liters per minute. 8. The patient's diet will be consistent-carbohydrate, low-sodium diet. [facility]# [id number] [facility]/MEREDITH DELCID
[2019-03-09] MEDS ORDERED: SODIUM BICARBONATE 650 MG TAB PO SCH (10:00)
[2019-03-09] MEDS ORDERED: FOLIC ACID/VIT B COMP W-C 1 MG (RENAL CAPS) PO SCH (10:00)
[2019-03-09] MEDS ORDERED: ASPIRIN EC 81 MG TAB PO SCH (10:00)
[2019-03-09 10:15] LABS: Creatine Kinase MB 2.4 ng/mL (0.0-4.0)
[2019-03-09] MEDS ORDERED: KETOROLAC 30 MG/1 ML INJ IV PRN (10:30)
--- NOTE | 2019-03-09 11:51 | Consultation ---
History of Present Illness - Reason for Consult Consult date: 03/09/19 end stage renal disease, hyperkalemia Requesting physician: JASON SHEPARD - History of Present Illness Patient is a 48-year-old -[place] female with a history of hypertension, [id number] diabetes and ESRD on hemodialysis who presents to the ED with complaint of acute onset persistent diffuse abdominal pain with nausea and vomiting for the last 2 days. Per the caregiver, the patient had uneventful regular hemodialysis 24 hours ago but started having the symptoms thereafter. Per caregiver, patient has not had any diarrhea, chest pain, shortness of breath, dizziness, headache, cough, fever, chills, change in vision, loss of consciousness, syncope or headache ROS: Stated complaint: ABD PAIN Other details as noted in HPI Constitutional: denies: chills, fever Eyes: denies: eye pain, eye discharge, vision change ENT: denies: ear pain, throat pain Respiratory: denies: cough, shortness of breath, wheezing Cardiovascular: denies: chest pain, palpitations Endocrine: no symptoms reported Gastrointestinal: abdominal pain, nausea, vomiting. denies: diarrhea Genitourinary: denies: urgency, dysuria, discharge Musculoskeletal: denies: back pain, joint swelling, arthralgia Skin: denies: rash, lesions Neurological: denies: headache, weakness, paresthesias Psychiatric: denies: anxiety, depression Hematological/Lymphatic: denies: easy bleeding, easy bruising - Past Medical History Hx Hypertension: Yes Hx Heart Attack/AMI: No Hx Congestive Heart Failure: No Hx Diabetes: Yes Hx GERD: Yes Hx Liver Disease: No Hx Renal Disease: Yes (Sat) Hx Sickle Cell Disease: No Hx Seizures: No Hx Asthma: No Hx COPD: No Hx Dementia: No Hx HIV: No Additional medical history: Down syndrome - Surgical History Hx Pacemaker: No Hx Internal Defibrillator: No Additional Surgical History: Fistula left upper armCataracts surgery - Social History Smoking Status: Never Smoker Substance Use Type: None Medications and Allergies Allergies Allergy/AdvReac Type Severity Reaction Status Date / Time fluconazole [From Diflucan] Allergy Swelling Verified 05/23/17 10:25 Home Medications Medication Instructions Recorded Confirmed Last Taken Type B Complex 11/Folic/C/Biot/Zinc 1 each PO DAILY 07/16/16 12/23/18 12/22/18 H istory [Dialyvite with Zinc Tablet] Calcium Acetate [Phoslo] 667 mg PO AC 07/09/18 12/23/18 12/23/18 History Sodium Bicarbonate 2 tab PO DAILY 07/09/18 12/23/18 12/22/18 History Aspirin EC [Halfprin EC] 81 mg PO QDAY tablet 12/26/18 Unknown Rx Insulin Detemir [Levemir VIAL] 10 units SUB-Q QHS 30 Days 12/26/18 12/23/18 12/23/18 Rx 30 units Active Meds: Active Medications Acetaminophen (Tylenol) 650 mg PO Q4H PRN PRN Reason: Pain, Mild (1-3) Aspirin (Halfprin Ec) 81 mg PO QDAY [facility] Last Admin: 03/09/19 09:01 Dose: 81 mg Documented by: Calcium Acetate (Phoslo) 667 mg PO [facility] Last Admin: 03/09/19 10:54 Dose: 667 mg Documented by: Dextrose (D50w (25gm) Syringe) 50 ml IV PRN PRN PRN Reason: Hypoglycemia Insulin Glargine (Lantus) 10 units SUB-Q QHS [facility] Insulin Human Regular (Humulin R) 0 units SUB-Q [facility]; Protocol Last Admin: 03/09/19 09:11 Dose: 3 units Documented by: [facility]ulin Human Regular [facility]; Protocol Ketorolac Tromethamine (Toradol) 15 mg IV Q8H PRN PRN Reason: Pain, Moderate (4-6) Stop: 03/14/19 10:29 Last Admin: 03/09/19 10:54 Dose: 15 mg Documented by: Morphine Sulfate (Morphine) 2 mg IV Q4H PRN PRN Reason: Pain, Moderate (4-6) Multivit/Ca Carb/B Cmplx/FA/Prenat (Renal Caps) 1 cap PO DAILY [facility] Last Admin: 03/09/19 09:00 Dose: 1 cap Documented by: Ondansetron HCl (Zofran) 4 mg IV Q8H PRN PRN Reason: Nausea And Vomiting Sodium Bicarbonate (Sodium Bicarbonate) 1,300 mg PO DAILY [facility] Last Admin: 03/09/19 09:00 Dose: 1,300 mg Documented by: Exam - Vital Signs Vital signs: Vital Signs Temp Pulse Resp BP Pulse Ox 98.4 F 110 H 22 141/90 88 03/08/19 18:30 03/08/19 18:30 03/08/19 18:30 03/08/19 18:30 03/08/19 18:30 - Physical Exam Narrative exam: - General Limitations: No Limitations General appearance: alert, in no apparent distress - Head Head exam: Present: atraumatic, normocephalic, normal inspection - Eye Eye exam: Present: normal appearance, PERRL, EOMI Pupils: Present: normal accommodation - ENT ENT exam: Present: normal exam, normal orophraynx, mucous membranes moist, TM's normal bilaterally, normal external ear exam - Neck Neck exam: Present: normal inspection, full ROM - Respiratory Respiratory exam: Present: normal lung sounds bilaterally. Absent: respiratory distress, wheezes, rales, chest wall tenderness, accessory muscle use, prolonged expiratory - Cardiovascular Cardiovascular Exam: Present: normal rhythm, tachycardia, normal heart sounds. Absent: systolic murmur, diastolic murmur, rubs, gallop - GI/Abdominal GI/Abdominal exam: Present: soft, tenderness (palpable moderately diffuse abdominal tenderness), normal bowel sounds. Absent: guarding, rebound, hyperactive bowel sounds, hypoactive bowel sounds, mass - Extremities Exam Extremities exam: Present: normal inspection, full ROM, normal capillary refill - Back Exam Back exam: Present: normal inspection, full ROM - Neurological Exam Neurological exam: Present: alert, oriented X3, CN II-XII intact, normal gait, reflexes normal - Psychiatric Psychiatric exam: Present: normal affect, normal mood - Skin Skin exam: Present: warm, dry, intact, normal color. Absent: rash Results - Lab Results 03/08/19 20:15 03/08/19 20:15 Most recent lab results Calcium 8.6 mg/dL (8.4-10.2) 03/08/19 20:15 Assessment and Plan Impression * End-stage renal disease on maintenance hemodialysis * abdominal pain * sepsis * hypotension * hyperkalemia * Hypertension * Down syndrome * Anemia Recommendations * Plans additional dialysis treatment today * iv abx for sepsis, vanco and cefepime, rec ID consultation * Shall keep her on Tuesdays, and Saturdays schedule as outpatient * Procrit with dialysis * Binders with diet * No IV, BP of venipuncture access arm * Adjust diet and meds for ESRD state * Thank you very much for the consultation. Shall follow along with you
[2019-03-09] MEDS ORDERED: EPOETIN ALFA 10,000 UNIT/1 ML INJ IV PRN (11:53)
[2019-03-09] MEDS ORDERED: SODIUM CHLORIDE 0.9% 100 ML IV PRN (11:53)
[2019-03-09] MEDS ORDERED: VANCOMYCIN/NS 1 GM/250 ML 1 GM/250 ML BAG IV ONE (11:55)
[2019-03-09] MEDS ORDERED: CEFEPIME/NS 2 GM/100 ML 2 GM/100 ML BAG IV ONE (12:30)
[2019-03-09] MEDS ORDERED: VANCOMYCIN PHARMACY TO DOSE IV SCH (13:00)
--- NOTE | 2019-03-09 14:50 | Consultation ---
History of Present Illness Consult date: 03/09/19 Requesting physician: CHRIS VICKERS Consult reason: elevated troponin History of present illness: The patient has a history of Down syndrome. She apparently has some cognitive impairment and she is unable to give an adequate history. The history was partly obtained from a caregiver. The patient presented with generalized abdominal pain. She claims that it goes to her chest at times. Abdominal CT scan revealed no acute findings. Her Troponin level is mildly elevated. Past History Past Medical History: diabetes, ESRD (on HD), hypertension, other (Down syndrome) Past Surgical History: Other (Details unknown) Social history: denies: smoking, alcohol abuse Family history: other (Details unknown) Medications and Allergies Allergies Allergy/AdvReac Type Severity Reaction Status Date / Time fluconazole [From Diflucan] Allergy Swelling Verified 05/23/17 10:25 Home Medications Medication Instructions Recorded Confirmed Last Taken Type B Complex 11/Folic/C/Biot/Zinc 1 each PO DAILY 07/16/16 12/23/18 12/22/18 H istory [Dialyvite with Zinc Tablet] Calcium Acetate [Phoslo] 667 mg PO AC 07/09/18 12/23/18 12/23/18 History Sodium Bicarbonate 2 tab PO DAILY 07/09/18 12/23/18 12/22/18 History Aspirin EC [Halfprin EC] 81 mg PO QDAY tablet 12/26/18 Unknown Rx Insulin Detemir [Levemir VIAL] 10 units SUB-Q QHS 30 Days 12/26/18 12/23/18 12/23/18 Rx 30 units Active Meds: Active Medications Acetaminophen (Tylenol) 650 mg PO Q4H PRN PRN Reason: Pain, Mild (1-3) Aspirin (Halfprin Ec) 81 mg PO QDAY [facility] Last Admin: 03/09/19 09:01 Dose: 81 mg Documented by: Calcium Acetate (Phoslo) 667 mg PO AC [facility] Last Admin: 03/09/19 10:54 Dose: 667 mg Documented by: Dextrose (D50w (25gm) Syringe) 50 ml IV PRN PRN PRN Reason: Hypoglycemia Epoetin Cortes (Procrit) 10,000 unit IV TERRI PRN PRN Reason: hemodialysis Sodium Chloride (Nacl 0.9%) 100 mls @ 999 mls/hr IV TERRI PRN PRN Reason: Hypotension Vancomycin HCl 2,000 mg/ (Sodium Chloride) 540 mls @ 250 mls/hr IV ONCE ONE Stop: 03/09/19 17:09 Insulin Glargine (Lantus) 10 units SUB-Q QHS [facility] Insulin Human Regular (Humulin R) 0 units SUB-Q AC [facility]; Protocol Last Admin: 03/09/19 12:23 Dose: 1 units Documented by: Insulin Human Regular (Humulin R) 0 units SUB-Q QHS [facility]; Protocol Morphine Sulfate (Morphine) 2 mg IV Q4H PRN PRN Reason: Pain, Moderate (4-6) Multivit/Ca Carb/B Cmplx/FA/Prenat (Renal Caps) 1 cap PO DAILY [facility] Last Admin: 03/09/19 09:00 Dose: 1 cap Documented by: Ondansetron HCl (Zofran) 4 mg IV Q8H PRN PRN Reason: Nausea And Vomiting Sodium Bicarbonate (Sodium Bicarbonate) 1,300 mg PO DAILY [facility] Last Admin: 03/09/19 09:00 Dose: 1,300 mg Documented by: Review of Systems Constitutional: no fever, no chills Ears, nose, mouth and throat: no ear pain, no ear discharge, no sore throat Cardiovascular: chest pain, no shortness of breath Respiratory: no cough, no hemoptysis, no shortness of breath Gastrointestinal: abdominal pain, no nausea, no vomiting, no diarrhea, no constipation Genitourinary Female: no dysuria, no urinary frequency Rectal: no pain, no bleeding Musculoskeletal: no neck stiffness, no neck pain, no myalgias Integumentary: no rash, no pruritis Neurological: no weakness, no parathesias, no numbness, no headaches Endocrine: no cold intolerance, no heat intolerance Hematologic/Lymphatic: no easy bruising, no easy bleeding Allergic/Immunologic: no urticaria, no wheezing Physical Examination Vital Signs Last Vital Signs Temp 98.3 F 03/09/19 11:09 Pulse 66 03/09/19 11:09 Resp 18 03/09/19 11:09 BP 134/68 03/09/19 11:09 Pulse Ox 97 03/09/19 11:09 General appearance: no acute distress HEENT: Positive: EOMI, Mucus Membranes Moist, Other (Down facies) Neck: Positive: trachea midline Cardiac: Positive: Reg Rate and Rhythm, S1/S2, Systolic Murmur Lungs: Positive: clear to auscultation Neuro: Positive: Other (no focal deficit) Abdomen: Positive: Soft, Active Bowel Sounds, Tender Skin: Positive: Clear. Negative: Rash Musculoskeletal: Normal Range of Motion Extremities: Present: normal Results 03/08/19 20:15 03/08/19 20:15 Cardiac Enzymes 03/08/19 03/09/19 Range/Units 20:15 08:16 AST 46 H (5-40) units/L CK-MB (CK-2) 2.4 (0.0-4.0) ng/mL Coagulation 03/08/19 Range/Units 20:15 PT 14.5 (12.2-14.9) Sec. INR 1.16 H (0.87-1.13) APTT 27.8 (24.2-36.6) Sec. Lipids 03/08/19 Range/Units 20:15 Triglycerides 97 (2-149) mg/dL Cholesterol 145 (50-199) mg/dL HDL Cholesterol 52 (40-59) mg/dL Cholesterol/HDL Ratio 2.78 % CBC 03/08/19 Range/Units 20:15 WBC 10.0 (4.5-11.0) K/mm3 RBC 3.03 L (3.65-5.03) M/mm3 Hgb 9.7 L (10.1-14.3) gm/dl Hct 29.2 L (30.3-42.9) % Plt Count 118 L (140-440) K/mm3 Lymph # 0.9 L (1.2-5.4) K/mm3 [place] # 0.9 H (0.0-0.8) K/mm3 Eos # 0.1 (0.0-0.4) K/mm3 Baso # 0.1 (0.0-0.1) K/mm3 Comprehensive Metabolic Panel 03/08/19 Range/Units 20:15 Sodium 135 L (137-145) mmol/L Potassium 5.4 H (3.6-5.0) mmol/L Chloride 92.5 L (98-107) mmol/L Carbon Dioxide 22 (22-30) mmol/L BUN 64 H (7-17) mg/dL Creatinine 8.8 H (0.7-1.2) mg/dL Glucose 294 H (65-100) mg/dL Calcium 8.6 (8.4-10.2) mg/dL AST 46 H (5-40) units/L ALT 50 (7-56) units/L Alkaline Phosphatase 95 (35-129) units/L Total Protein 7.6 (6.3-8.2) g/dL Albumin 3.9 (3.9-5) g/dL - Imaging and Cardiology EKG: image reviewed EKG interpretations - Telemetry EKG Rhythm: Sinus Rhythm - EKG Sinus rhythms and dysrhythmias: sinus rhythm Assessment and Plan Her elevated troponin level appears nonspecific and may be related to ESRD. Her major problem appears to be abdominal pain at this time. Obtain echocardiogram. - Patient Problems (1) Elevated troponin Current Visit: Yes Status: Acute (2) Abdominal pain Current Visit: Yes Status: Acute Qualifiers: Abdominal location: generalized Qualified Code(s): R10.84 - Generalized abdominal pain (3) Atypical chest pain Current Visit: Yes Status: Acute (4) Thrombocytopenia Current Visit: Yes Status: Acute (5) Down syndrome Current Visit: Yes Status: Chronic (6) ESRD (end stage renal disease) Current Visit: Yes Status: Chronic (7) Hypertension Current Visit: Yes Status: Chronic Qualifiers: Hypertension type: essential hypertension Qualified Code(s): I10 - Essential (primary) hypertension (8) Morbid obesity Current Visit: Yes Status: Chronic (9) Type 2 diabetes mellitus Current Visit: No Status: Chronic
[2019-03-09] MEDS ORDERED: VANCOMYCIN 2,000 MG in SODIUM CHLORIDE 0.9% 500 ML 500 ML IV ONE (15:00)
[2019-03-09 16:41] LABS: Hepatitis B Surface Antigen Non-Reactive (Negative); Hepatitis C Virus Antibody Non-Reactive (NonReactive)
[2019-03-09] MEDS ORDERED: SODIUM CHLORIDE*PRIMING MACHINE ONLY FOR DIALYSIS MC ONE (17:34)
--- NOTE | 2019-03-09 18:06 | Progress Note ---
Assessment and Plan Assessment and plan: --Abdominal pain; CT abdomen and pelvis no acute abnormalities noted Symptomatic management with pain medications, if no improvement Constitutional evaluation --End-stage renal disease on hemodialysis; Nephrology following, hemodialysis per schedule --Hyperkalemia; hemodialysis today Monitor electrolytes --Nonspecific elevation of cardiac enzymes; Probably secondary to ESRD, cardiology following --History of hypertension; patient's blood pressures in the low range Closely monitor, adjust the medications --Anemia of ESRD; follow H&H and transfuse as needed --History of Down syndrome; supportive care --Morbid obesity; BMI 44.8, weight reduction when medically stable --DVT prophylaxis; SCDs Monitor closely and adjust the management as needed Consults and recommendations noted and appreciated History Interval history: Patient was admitted this morning with acute abdominal pain Has end-stage renal disease on hemodialysis Screaming and restless Vital signs reviewed Hospitalist Physical - Constitutional Vitals: Temp Pulse Resp BP Pulse Ox 98.3 F 107 H 18 72/32 97 03/09/19 13:40 03/09/19 17:00 03/09/19 13:40 03/09/19 17:00 03/09/19 11:09 General appearance: Present: no acute distress, obese, other (confused and agitated) - EENT Eyes: Present: PERRL, EOM intact - Neck Neck: Present: supple, normal ROM - Respiratory Respiratory effort: normal Respiratory: bilateral: diminished, rales, negative: rhonchi, wheezing - Cardiovascular Rhythm: regular Heart Sounds: Present: S1 & S2 - Extremities Extremities: no ischemia, No edema - Abdominal General gastrointestinal: soft, non-tender, non-distended, normal bowel sounds - Integumentary Integumentary: Present: clear, warm - Psychiatric Psychiatric: agitated, other (confused and screaming) - Neurologic Neurologic: moves all extremities Results - Labs CBC & Chem 7: 03/08/19 20:15 03/08/19 20:15 Labs: Laboratory Last Values WBC 10.0 K/mm3 (4.5-11.0) 03/08/19 20:15 RBC 3.03 M/mm3 (3.65-5.03) L 03/08/19 20:15 Hgb 9.7 gm/dl (10.1-14.3) L 03/08/19 20:15 Hct 29.2 % (30.3-42.9) L 03/08/19 20:15 MCV 97 fl (79-97) 03/08/19 20:15 MCH 32 pg (28-32) 03/08/19 20:15 MCHC 33 % (30-34) 03/08/19 20:15 RDW 19.4 % (13.2-15.2) H 03/08/19 20:15 Plt Count 118 K/mm3 (140-440) L 03/08/19 20:15 Lymph % (Auto) 9.1 % (13.4-35.0) L 03/08/19 20:15 [place] % (Auto) 8.5 % (0.0-7.3) H 03/08/19 20:15 Eos % (Auto) 1.5 % (0.0-4.3) 03/08/19 20:15 Baso % (Auto) 1.4 % (0.0-1.8) 03/08/19 20:15 Lymph # 0.9 K/mm3 (1.2-5.4) L 03/08/19 20:15 [place] # 0.9 K/mm3 (0.0-0.8) H 03/08/19 20:15 Eos # 0.1 K/mm3 (0.0-0.4) 03/08/19 20:15 Baso # 0.1 K/mm3 (0.0-0.1) 03/08/19 20:15 Seg Neutrophils % 79.5 % (40.0-70.0) H 03/08/19 20:15 Seg Neutrophils # 7.9 K/mm3 (1.8-7.7) H 03/08/19 20:15 PT 14.5 Sec. (12.2-14.9) 03/08/19 20:15 INR 1.16 (0.87-1.13) H 03/08/19 20:15 APTT 27.8 Sec. (24.2-36.6) 03/08/19 20:15 Sodium 135 mmol/L (137-145) L 03/08/19 20:15 Potassium 5.4 mmol/L (3.6-5.0) H 03/08/19 20:15 Chloride 92.5 mmol/L (98-107) L 03/08/19 20:15 Carbon Dioxide 22 mmol/L (22-30) 03/08/19 20:15 Anion Gap 26 mmol/L 03/08/19 20:15 BUN 64 mg/dL (7-17) H 03/08/19 20:15 Creatinine 8.8 mg/dL (0.7-1.2) H 03/08/19 20:15 Estimated GFR 6 ml/min 03/08/19 20:15 BUN/Creatinine Ratio 7 % 03/08/19 20:15 Glucose 294 mg/dL (65-100) H 03/08/19 20:15 POC Glucose 407 (70-105) H 03/09/19 11:07 Calcium 8.6 mg/dL (8.4-10.2) 03/08/19 20:15 Total Bilirubin 0.20 mg/dL (0.1-1.2) 03/08/19 20:15 AST 46 units/L (5-40) H 03/08/19 20:15 ALT 50 units/L (7-56) 03/08/19 20:15 Alkaline Phosphatase 95 units/L (35-129) 03/08/19 20:15 Total Creatine Kinase 76 units/L (30-135) 03/09/19 13:07 CK-MB (CK-2) 2.0 ng/mL (0.0-4.0) 03/09/19 13:07 CK-MB (CK-2) Rel Index 2.6 (0-4) 03/09/19 13:07 Troponin T 0.042 ng/mL (0.00-0.029) H D 03/09/19 13:07 Total Protein 7.6 g/dL (6.3-8.2) 03/08/19 20:15 Albumin 3.9 g/dL (3.9-5) 03/08/19 20:15 Albumin/Globulin Ratio 1.1 % 03/08/19 20:15 Triglycerides 97 mg/dL (2-149) 03/08/19 20:15 Cholesterol 145 mg/dL (50-199) 03/08/19 20:15 LDL Cholesterol Direct 84 mg/dL (50-130) 03/08/19 20:15 HDL Cholesterol 52 mg/dL (40-59) 03/08/19 20:15 Cholesterol/HDL Ratio 2.78 % 03/08/19 20:15 Lipase 22 units/L (13-60) 03/08/19 20:15 Hepatitis A IgM Ab Non-reactive (NonReactive) 03/09/19 15:54 Hep Bs Antigen Non-reactive (Negative) 03/09/19 15:54 Hep B Core IgM Ab Non-reactive (NonReactive) 03/09/19 15:54 Hepatitis C Antibody Non-reactive (NonReactive) 03/09/19 15:54 Active Medications - Current Medications Current Medications: Generic Name Dose Route Start Last Admin Trade Name Freq PRN Reason Stop Dose Admin Acetaminophen 650 mg 03/09/19 00:44 Tylenol PO Q4H PRN Pain, Mild (1-3) Aspirin 81 mg 03/09/19 10:00 03/09/19 09:01 Halfprin Ec PO 81 mg QDAY [facility] Administration Calcium Acetate 667 mg 03/09/19 07:30 03/09/19 10:54 Phoslo PO 667 mg AC [facility] Administration Dextrose 50 ml 03/09/19 00:48 D50w (25gm) Syringe IV PRN PRN Hypoglycemia Epoetin Cortes 10,000 unit 03/09/19 11:53 Procrit IV TERRI PRN hemodialysis Sodium Chloride 100 mls @ 999 mls/hr 03/09/19 11:53 Nacl 0.9% IV TERRI PRN Hypotension Insulin Glargine 10 units 03/09/19 22:00 Lantus SUB-Q QHS [facility] Insulin Human Regular 0 units 03/09/19 07:30 03/09/19 12:23 Humulin R SUB-Q 1 units AC [facility] Administration Protocol Insulin Human Regular 0 units 03/09/19 22:00 Humulin R SUB-Q QHS [facility] Protocol Morphine Sulfate 2 mg 03/09/19 00:43 Morphine IV Q4H PRN Pain, Moderate (4-6) Multivit/Ca Carb/B Cmplx/FA/Prenat 1 cap 03/09/19 10:00 03/09/19 09:00 Renal Caps PO 1 cap DAILY [facility] Administration Ondansetron HCl 4 mg 03/09/19 00:43 Zofran IV Q8H PRN Nausea And Vomiting Sodium Bicarbonate 1,300 mg 03/09/19 10:00 03/09/19 09:00 Sodium Bicarbonate PO 1,300 mg DAILY [facility] Administration
[2019-03-09] MEDS ORDERED: LORazepam 2 MG/ML VIAL ONE (18:48)
[2019-03-09] MEDS ORDERED: EPINEPHrine 1:10,000 1 MG/10 ML SYRINGE ONE ×2 (18:55→19:19)
[2019-03-09] MEDS ORDERED: ATROPINE 0.1% (1 MG/10 ML) CARDIAC SYRINGE ONE (19:19)
[2019-03-09] MEDS ORDERED: LIDOCAINE PF 100 MG/5 ML (CARDIAC SYRINGE) IV ONE (19:19)
[2019-03-09] MEDS ORDERED: NALOXONE 2 MG/2 ML INJ ONE (19:19)
[2019-03-09] MEDS ORDERED: CALCIUM CHLORIDE 1,000 MG/10 ML SYRINGE IV ONE (19:19)
[2019-03-09] MEDS ORDERED: SODIUM BICARB 8.4% 50 MEQ/50 ML SYRINGE IV ONE (19:19)
--- NOTE | 2019-03-09 19:32 | Event Note ---
Date: 03/09/19 Patient returned from hemodialysis, Suddenly became unresponsive, hypotensive.Code met was called Patient had an episode of seizure, received IV Ativan And later had bradycardia and cardiac arrest, CODE BLUE was called at 18:50 hours CPR was done per ACLS protocol, spontaneous circulation and pulse returned Patient was intubated and transferred to ICU. Discussed with Arm Rest Builder Requested consult
--- NOTE | 2019-03-09 19:47 | Death Summary ---
Summary - Providers Date of service: 03/09/19 Consults: 03/09/19 06:00 Consult to Physician [CONS] Routine Comment: Consulting Provider: REED GIL Physician Instructions: Reason For Exam: ESRD ON DIALYSIS Consult to Physician [CONS] Routine Comment: Consulting Provider: RICHIE GONZALEZ Physician Instructions: Reason For Exam: ELEVATED TROPONIN LEVEL Attending: CHARLETTE PETERSON - summary Date of admission: 03/09/19 00:34 Date of : 03/09/19 (at 19:19 hrs) Reason for admission: Abdominal pain and nausea vomiting. Significant findings: 48-year-old Down syndrome female patient with significant past medical history of hypertension, type 2 diabetes mellitus and end-stage renal disease on hemodialysis, Was admitted through emergency room with abdominal pain. Patient's CT abdomen and pelvis did not reveal any acute abnormalities Initial workup is consistent with hyperkalemia, non-ST elevation [place], patient was evaluated by nephrology, scheduled for hemodialysis. The patient was also evaluated by cardiology and was managed accordingly. Patient received hemodialysis, and was brought to the floor The nurse found the patient to be unresponsive, nonverbal with eyes open, code Med. was called, Later patient had cardiac arrest, CODE BLUE was called received CPR per ACLS protocol, with return of spontaneous circulation .[please refer to Code sheet for details] Patient was intubated and placed on ventilatory support and was transferred to ICU. Patient had another episode of cardiac arrest in ICU, received CPR per ACLS protocol,[referred to Code sheet for details] patient could not be revived, Patient was pronounced by covering hospitalist Dr. Fisher, Time of 19:90 hrs on 03/09/2019 Cause of ; Acute respiratory failure Cardiac arrest Non-ST elevation [place] End-stage renal disease on hemodialysis Hyperkalemia Hypotension Down syndrome Abdominal pain Toxic Metabolic Encephalopathy Anemia of ESRD Morbid obesity Procedures/treatments rendered: Hemodialysis Pertinent studies: CT abdomen and pelvis:No acute findings with abdominal pelvis, umbilical hernia containing only fat unchanged Chest x-ray; no acute pulmonary disease Disposition: - Final diagnosis (1) Acute respiratory failure Note: Final diagnosis: Acute (2) Cardiac arrest Note: Final diagnosis: (3) NSTEMI (non-ST elevated myocardial infarction) Note: Final diagnosis: (4) ESRD needing dialysis Note: Final diagnosis: (5) Hyperkalemia Note: Final diagnosis: (6) Down syndrome, unspecified Note: Final diagnosis: (7) Elevated troponin Note: Final diagnosis: (8) Thrombocytopenia Note: Final diagnosis: (9) Morbid obesity with BMI of 40.0-44.9, adult Note: Final diagnosis:
[2019-03-09 19:53] VITALS: BP 97/40
[2019-03-09] MEDS ORDERED: SODIUM CHLORIDE 0.9% 1000 ML IV SOLN ONE (21:00)
[2019-03-09] MEDS ORDERED: INSULIN GLARGINE 100 UNITS/ML SUB-Q SCH (22:00)
[2019-03-09] MEDS ORDERED: INSULIN REGULAR, HUMAN 100 UNITS/1 ML SUB-Q SCH (22:00)
[2019-03-09] MEDS ORDERED: INSULIN DETEMIR 10 UNIT SUB-Q SCH (22:00)
== END 2019-03-09 22:00 | DRG 871 ==
LOC: ED 18:20 → 4A 03-09 00:34 → CC1 03-09 19:01
PROVIDERS: ADMIT Internal Medicine; ATTEND Internal Medicine
PROC: 5A1D70Z Performance of Urinary Filtration, Intermittent, Less than 6 Hours Per Day (ICD-10-PCS; principal; 2019-03-09)
PROC: 0BH17EZ Insertion of Endotracheal Airway into Trachea, Via Natural or Artificial Opening (ICD-10-PCS; 2019-03-09)
PROC: 5A12012 Performance of Cardiac Output, Single, Manual (ICD-10-PCS; 2019-03-09)
DX: A41.9 Sepsis, unspecified organism (principal); N18.6 End stage renal disease; I12.0 Hypertensive chronic kidney disease with stage 5 chronic kidney disease or end stage renal disease; Z68.41 Body mass index [BMI] 40.0-44.9, adult; R79.89 Other specified abnormal findings of blood chemistry; E11.22 Type 2 diabetes mellitus with diabetic chronic kidney disease; K21.9 Gastro-esophageal reflux disease without esophagitis; E87.5 Hyperkalemia; D63.1 Anemia in chronic kidney disease; E66.01 Morbid (severe) obesity due to excess calories; I95.9 Hypotension, unspecified; D69.6 Thrombocytopenia, unspecified; R56.9 Unspecified convulsions; I46.9 Cardiac arrest, cause unspecified; R00.1 Bradycardia, unspecified; Z99.2 Dependence on renal dialysis; Z79.899 Other long term (current) drug therapy; Z79.82 Long term (current) use of aspirin; Z79.4 Long term (current) use of insulin; Q90.9 Down syndrome, unspecified
CPT/HCPCS: 31500; 36415; 71045; 74176; 80053; 80061; 80074; 82550; 82553; 82962; 83690; 84484; 85025; 85610; 85730; 87040; 93005; 93010; 94760; 96374; 96375; G0378; J0171; J0461; J0692; J1815; J1885; J2001; J2060; J2270; J2310; J2405; J3370; J7030; J7040